=== PATIENT | female | born 1975 | race American Indian/Alaskan Native ===

== ENCOUNTER 2021-03-16 15:55 | Inpatient (IN) | payer BC ==
[2021-03-16] MEDS ORDERED: SODIUM CHLORIDE 0.9% 500 ML 500 ML IV ONE (16:52)
[2021-03-16] MEDS ORDERED: ACETAMINOPHEN 500 MG TAB PO STA (16:52)
[2021-03-16] MEDS ORDERED: dexAMETHasone 20 MG/5 ML VIAL IV ONE (17:00)
[2021-03-16] MEDS ORDERED: SODIUM CHLORIDE 0.9% 1000 ML 1,000 ML ONE (17:07)
--- NOTE | 2021-03-16 17:07 | Emergency Department Report ---
HPI - General Chief Complaint: Dyspnea/Respdistress Time Seen by Provider: 03/16/21 16:59 - HPI HPI: This is a 46 year old AA F who presents to the emergency department with the complaint of a cough, mild SOB, chest discomfort and "I am not getting better." She went to the urgent care a few days ago and had a Covid swab done, but has not gottent the results yet. She denies any past medical history but admits that she does not follow with a PCP regularly. She moved here from [place] in June. No recent travel or sick contacts at home. The patient denies any tobacco or illicit drug use. She has not taken anything for symptoms prior to presentation today. The patient presented into triage with a temperature of 104 F and a room air pulse ox in the 40s. ED Past Medical Hx - Medications Home Medications: Home Medications Medication Instructions Recorded Confirmed Last Taken Type No Known Home Medications [No 03/16/21 03/16/21 Unknown History Reported Home Medications] ED Review of Systems ROS: Stated complaint: COUGH/CHEST PAIN/NO BM Other details as noted in HPI Comment: All other systems reviewed and negative Constitutional: fever, weakness Eyes: denies: eye pain, vision change ENT: denies: ear pain, throat pain Respiratory: cough, shortness of breath Cardiovascular: chest pain. denies: edema Gastrointestinal: denies: abdominal pain, vomiting Genitourinary: denies: dysuria, discharge Musculoskeletal: myalgia. denies: joint swelling Skin: denies: rash, lesions Neurological: denies: numbness, paresthesias Physical Exam - Physical Exam Vital Signs: Vital Signs 03/16/21 03/16/21 03/16/21 16:43 16:54 16:57 Temperature 104 F H 104 F H Pulse Rate 122 H 124 H Respiratory 16 20 Rate Blood Pressure 143/75 140/80 [Right] O2 Sat by Pulse 48 L 83 L 84 Oximetry 03/16/21 16:58 Temperature Pulse Rate Respiratory 90 H Rate Blood Pressure [Right] O2 Sat by Pulse Oximetry Physical Exam: GENERAL: The patient is well-developed well-nourished. HENT: Normocephalic. Atraumatic. Patient has moist mucous membranes. EYES: Extraocular motions are intact. NECK: Supple. Trachea is midline. CHEST/LUNGS: Rhonchi heard bilaterally. Mild tachypnea but no accessory muscle use. There is no respiratory distress noted. HEART/CARDIOVASCULAR: Regular. There is moderate tachycardia. There is no murmur. ABDOMEN: Abdomen is soft, nontender. Patient has normal bowel sounds. Morbidly obese habitus. SKIN: Skin is warm and dry. NEURO: The patient is awake, alert, and oriented. The patient is cooperative. The patient has no focal neurologic deficits. Normal speech. MUSCULOSKELETAL: There is no tenderness or deformity. There is no limitation range of motion. ED Course Vital Signs 03/16/21 03/16/21 03/16/21 16:43 16:54 16:57 Temperature 104 F H 104 F H Pulse Rate 122 H 124 H Respiratory 16 20 Rate Blood Pressure 143/75 140/80 [Right] O2 Sat by Pulse 48 L 83 L 84 Oximetry 03/16/21 16:58 Temperature Pulse Rate Respiratory 90 H Rate Blood Pressure [Right] O2 Sat by Pulse Oximetry ED Medical Decision Making - Lab Data Result diagrams: 03/16/21 16:57 03/16/21 16:57 Lab Results 03/16/21 03/16/21 03/16/21 Range/Units 16:57 16:57 16:57 WBC 4.8 (4.5-11.0) K/mm3 RBC 5.04 H (3.65-5.03) M/mm3 Hgb 11.5 (10.1-14.3) gm/dl Hct 36.4 (30.3-42.9) % MCV 72 L (79-97) fl MCH 23 L (28-32) pg MCHC 32 (30-34) % RDW 19.0 H (13.2-15.2) % Plt Count 283 (140-440) K/mm3 Lymph % (Auto) 16.6 (13.4-35.0) % [place] % (Auto) 8.5 H (0.0-7.3) % Eos % (Auto) 0.0 (0.0-4.3) % Baso % (Auto) 0.3 (0.0-1.8) % Lymph # (Auto) 0.8 L (1.2-5.4) K/mm3 [place] # (Auto) 0.4 (0.0-0.8) K/mm3 Eos # (Auto) 0.0 (0.0-0.4) K/mm3 Baso # (Auto) 0.0 (0.0-0.1) K/mm3 Seg Neutrophils % 74.6 H (40.0-70.0) % Seg Neutrophils # 3.6 (1.8-7.7) K/mm3 PT 13.0 (12.2-14.9) Sec. INR 0.93 (0.87-1.13) D-Dimer 977.31 H (0-234) ng/mlDDU VBG pH (7.320-7.420) Sodium 133 L (137-145) mmol/L Potassium 4.2 (3.6-5.0) mmol/L Chloride 92.0 L (98-107) mmol/L Carbon Dioxide 26 (22-30) mmol/L Anion Gap 19 mmol/L BUN 10 (7-17) mg/dL Creatinine 0.9 (0.6-1.2) mg/dL Estimated GFR > 60 ml/min BUN/Creatinine Ratio 11 % Glucose 131 H (65-100) mg/dL Lactic Acid (0.7-2.0) mmol/L Calcium 9.2 (8.4-10.2) mg/dL Ferritin (10.0-200.0) ng/mL Total Bilirubin 0.40 (0.1-1.2) mg/dL AST 145 H (5-40) units/L ALT 57 H (7-56) units/L Alkaline Phosphatase 62 (35-129) units/L Lactate Dehydrogenase (91-180) units/L C-Reactive Protein (0.00-1.30) mg/dL NT-Pro-B Natriuret Pep (0-450) pg/mL Total Protein 8.7 H (6.3-8.2) g/dL Albumin 3.5 L (3.9-5) g/dL Albumin/Globulin Ratio 0.7 % HCG, Qual (Negative) 03/16/21 03/16/21 03/16/21 Range/Units 16:57 16:57 16:57 WBC (4.5-11.0) K/mm3 RBC (3.65-5.03) M/mm3 Hgb (10.1-14.3) gm/dl Hct (30.3-42.9) % MCV (79-97) fl MCH (28-32) pg MCHC (30-34) % RDW (13.2-15.2) % Plt Count (140-440) K/mm3 Lymph % (Auto) (13.4-35.0) % [place] % (Auto) (0.0-7.3) % Eos % (Auto) (0.0-4.3) % Baso % (Auto) (0.0-1.8) % Lymph # (Auto) (1.2-5.4) K/mm3 [place] # (Auto) (0.0-0.8) K/mm3 Eos # (Auto) (0.0-0.4) K/mm3 Baso # (Auto) (0.0-0.1) K/mm3 Seg Neutrophils % (40.0-70.0) % Seg Neutrophils # (1.8-7.7) K/mm3 PT (12.2-14.9) Sec. INR (0.87-1.13) D-Dimer (0-234) ng/mlDDU VBG pH 7.430 H (7.320-7.420) Sodium (137-145) mmol/L Potassium (3.6-5.0) mmol/L Chloride (98-107) mmol/L Carbon Dioxide (22-30) mmol/L Anion Gap mmol/L BUN (7-17) mg/dL Creatinine (0.6-1.2) mg/dL Estimated GFR ml/min BUN/Creatinine Ratio % Glucose (65-100) mg/dL Lactic Acid 2.40 H* (0.7-2.0) mmol/L Calcium (8.4-10.2) mg/dL Ferritin (10.0-200.0) ng/mL Total Bilirubin (0.1-1.2) mg/dL AST (5-40) units/L ALT (7-56) units/L Alkaline Phosphatase (35-129) units/L Lactate Dehydrogenase (91-180) units/L C-Reactive Protein (0.00-1.30) mg/dL NT-Pro-B Natriuret Pep (0-450) pg/mL Total Protein (6.3-8.2) g/dL Albumin (3.9-5) g/dL Albumin/Globulin Ratio % HCG, Qual Negative (Negative) 03/16/21 03/16/21 Range/Units 17:12 17:12 WBC (4.5-11.0) K/mm3 RBC (3.65-5.03) M/mm3 Hgb (10.1-14.3) gm/dl Hct (30.3-42.9) % MCV (79-97) fl MCH (28-32) pg MCHC (30-34) % RDW (13.2-15.2) % Plt Count (140-440) K/mm3 Lymph % (Auto) (13.4-35.0) % [place] % (Auto) (0.0-7.3) % Eos % (Auto) (0.0-4.3) % Baso % (Auto) (0.0-1.8) % Lymph # (Auto) (1.2-5.4) K/mm3 [place] # (Auto) (0.0-0.8) K/mm3 Eos # (Auto) (0.0-0.4) K/mm3 Baso # (Auto) (0.0-0.1) K/mm3 Seg Neutrophils % (40.0-70.0) % Seg Neutrophils # (1.8-7.7) K/mm3 PT (12.2-14.9) Sec. INR (0.87-1.13) D-Dimer (0-234) ng/mlDDU VBG pH (7.320-7.420) Sodium (137-145) mmol/L Potassium (3.6-5.0) mmol/L Chloride (98-107) mmol/L Carbon Dioxide (22-30) mmol/L Anion Gap mmol/L BUN (7-17) mg/dL Creatinine (0.6-1.2) mg/dL Estimated GFR ml/min BUN/Creatinine Ratio % Glucose (65-100) mg/dL Lactic Acid (0.7-2.0) mmol/L Calcium (8.4-10.2) mg/dL Ferritin 88.4 (10.0-200.0) ng/mL Total Bilirubin (0.1-1.2) mg/dL AST (5-40) units/L ALT (7-56) units/L Alkaline Phosphatase (35-129) units/L Lactate Dehydrogenase 944 H (91-180) units/L C-Reactive Protein 10.60 H (0.00-1.30) mg/dL NT-Pro-B Natriuret Pep 113.8 (0-450) pg/mL Total Protein (6.3-8.2) g/dL Albumin (3.9-5) g/dL Albumin/Globulin Ratio % HCG, Qual (Negative) - EKG Data -: EKG Interpreted by Me EKG shows normal: sinus rhythm, axis, intervals, QRS complexes, ST-T waves (An terolateral flattening of the T waves) Rate: tachycardia (119 bpm) - EKG Data When compared to previous EKG there are: previous EKG unavailable Interpretation: other (Sinus tachycardia 119 bpm, normal axis, normal intervals, anterolateral T wave flattening. No ST elevation MT) - Radiology Data Radiology results: image reviewed interpreted by me: Chest x-ray shows bilateral patchy infiltrates concerning for pneumonia. No pneumothorax. No widened mediastinum. - Medical Decision Making This patient presents to the emergency department with complaint of a mild cough, shortness of breath, fatigue, chest discomfort, that has not been getting any better over the past few days. She recently had a Covid swab done but did not have the results. Upon presentation the patient is seen with a room air pulse ox of about 45%. She was titrated up on nasal cannula and then eventually to high flow oxygen and we were able to get her oxygen saturation up into the 90s on 35 L at 90% FiO2. Chest x-ray shows bilateral patchy infiltrates consistent with pneumonia. Patient's labs show elevated inflammatory markers consistent with COVID-19 infection such as D-dimer level, LDH, ferritin, CRP, and the patient has elevate d LFTs. She has received IV fluid resuscitation, IV Decadron, IV antibiotics. The patient will be admitted to the hospital for further evaluation and treatment was accepted for admission by the hospitalist, Dr. Murrieta. Critical Care Time: Yes Critical care time in (mins) excluding proc time.: 35 Critical care attestation.: If time is entered above; I have spent that time in minutes in the direct care of this critically ill patient, excluding procedure time. Critical care time spent on this patient in doing her initial evaluation, multiple reevaluations, ordering and interpretation of labs and imaging, supplemental oxygen for her hypoxia, IV antibiotics, IV Decadron. Critical Care Time: 35 minutes ED Disposition Clinical Impression: Acute hypoxemic respiratory failure, Suspected 2019-nCoV infection, Pneumonia Disposition: 09 ADMITTED INPATIENT Is pt being admited?: Yes Condition: Serious Time of Disposition: 23:21
[2021-03-16 17:23] LABS: Basophils % (Auto) 0.3 % (0.0-1.8); Hematocrit 36.4 % (30.3-42.9); Hemoglobin 11.5 gm/dl (10.1-14.3); Lymphocytes # (Auto) 0.8 K/mm3 (1.2-5.4); Lymphocytes % (Auto) 16.6 % (13.4-35.0); Mean Corpuscular HGB Conc 32 % (30-34); Mean Corpuscular Volume 72 fl (79-97); Monocytes # (Auto) 0.4 K/mm3 (0.0-0.8); Monocytes % (Auto) 8.5 % (0.0-7.3); Platelet Count 283 K/mm3 (140-440); Red Blood Count 5.04 M/mm3 (3.65-5.03)
[2021-03-16 17:37] LABS: INR 0.93 (0.87-1.13)
[2021-03-16 18:02] LABS: Alanine Aminotransferase 57 units/L (7-56); Albumin 3.5 g/dL (3.9-5); BUN/Creatinine Ratio 11; Blood Urea Nitrogen 10 mg/dL (7-17); Calcium 9.2 mg/dL (8.4-10.2); Hemolysis Index 15
[2021-03-16 18:03] LABS: C-Reactive Protein 10.6 mg/dL (0.00-1.30)
[2021-03-16] MEDS ORDERED: KETOROLAC 30 MG/1 ML INJ IV ONE (18:11)
--- NOTE | 2021-03-16 18:36 | XRay Report ---
CHEST 1 VIEW INDICATION: possible Sepsis. COMPARISON: None FINDINGS: SUPPORT DEVICES: None. HEART: Within normal limits. LUNGS/PLEURA: Moderate patchy multifocal airspace disease throughout the lungs. ADDITIONAL FINDINGS: None. IMPRESSION: 1. Pulmonary findings as above. Signer Name: Thomas Joseph MD Signed: 03/16/2021 6:32 PM Workstation Name: [id number]
--- NOTE | 2021-03-16 18:45 | History and Physical Report ---
History of Present Illness Chief complaint: I cannot breathe and my head hurts History of present illness: 46 YO Female with Obesity Hypoventilation Syndrome presents ED for evaluation. Patient reports "I cannot breathe, my head hurts". Patient states that she has experienced fever, generalized weakness, fatigue, malaise, dry cough, headache, diminished sense of smell, diminished sense of taste over the past 5 days with persistent and worsening symptoms over the same timeframe. Patient transported to [facility] via private vehicle for further care and evaluation of the aforementioned symptoms. The patient was seen and evaluated in the emergency department. All lab and imaging studies reviewed. The patient was found to be febrile with a temperature of 104 F as well as a pulse oximetry of 45% on room air which is consistent with acute hypoxemic respiratory failure. Patient was placed on supplemental oxygen without significant improvement in symptoms and was subsequently placed on high flow supplemental oxygen with mild improvement in symptoms. Chest x-ray revealed bilateral pneumonia. Patient admitted to medical floor and initiated on pneumonia as well as coronavirus protocols. Pulmonary team consulted in ED. Nephrology team consulted in ED. Patient denies chest pain, skin rash, recent ill contacts unilateral leg swelling, calf pain prolonged travel/immobility, individual/family history of DV T/PE/bleeding/blood clotting disorders. No prior admission for review. No medication listed at time of admission for reconciliation. Advanced care planning conducted in ED. Patient is not vaccinated against COVID-19. Past History Past Medical History: other (See HPI) Past Surgical History: No surgical history, Other (Reviewed) Social history: single. denies: smoking, alcohol abuse, prescription drug abuse Family history: diabetes, hypertension Medications and Allergies Allergies Allergy/AdvReac Type Severity Reaction Status Date / Time No Known Allergies Allergy Verified 03/16/21 17:07 Home Medications Medication Instructions Recorded Confirmed Last Taken Type No Known Home Medications [No 03/16/21 03/16/21 Unknown History Reported Home Medications] Review of Systems Constitutional: fever, fatigue, weakness, malaise Ears, nose, mouth and throat: other (Loss of sense of smell, loss of sense of taste), no ear pain, no ear discharge, no decreased hearing, no nose pain Breasts: no change in shape, no swelling Cardiovascular: no chest pain, no orthopnea, no rapid/irregular heart beat, no edema Respiratory: cough, cough with sputum, shortness of breath Gastrointestinal: nausea, no abdominal pain, no diarrhea, no constipation, no hematemesis Genitourinary Female: no pelvic pain, no flank pain, no dysuria, no urinary frequency, no urgency Rectal: no pain, no incontinence, no bleeding Musculoskeletal: no neck stiffness, no neck pain, no shooting arm pain, no arm numbness/tingling, no shooting leg pain Integumentary: no rash, no pruritis, no sores, no boils, no blisters Neurological: no head injury, no paralysis, no weakness, no tingling, no seizures, no syncope, no ataxia Psychiatric: no anxiety, no memory loss, no sleep disturbances, no insomnia, no suicidal ideation Endocrine: no cold intolerance, no heat intolerance, no polyphagia, no polydipsia, no nocturia, no excessive sweating Hematologic/Lymphatic: no easy bruising, no easy bleeding Allergic/Immunologic: no urticaria Exam - Constitutional Vitals: Temp Pulse Resp BP Pulse Ox 104 F H 118 H 22 131/75 96 03/16/21 16:54 03/16/21 18:23 03/16/21 18:23 03/16/21 18:23 03/16/21 18:23 General appearance: Present: mild distress, obese - EENT Eyes: Present: PERRL ENT: hearing intact, clear oral mucosa - Neck Neck: Present: supple, normal ROM - Respiratory Respiratory effort: labored, accessory muscle use, stridor Respiratory: bilateral: diminished, rhonchi - Cardiovascular Heart Sounds: Present: S1 & S2. Absent: rub, click - Extremities Extremities: pulses symmetrical, No edema Peripheral Pulses: within normal limits - Abdominal General gastrointestinal: Present: soft, non-tender, non-distended, normal bowel sounds Female genitourinary: Present: normal - Integumentary Integumentary: Present: clear, warm, dry - Musculoskeletal Musculoskeletal: gait normal, strength equal bilaterally - Psychiatric Psychiatric: appropriate mood/affect, intact judgment & insight - Neurologic Neurologic: CNII-XII intact, moves all extremities Results - Labs CBC & Chem 7: 03/16/21 16:57 03/16/21 16:57 Labs: Abnormal lab results 03/16/21 03/16/21 03/16/21 Range/Units 16:57 16:57 16:57 RBC 5.04 H (3.65-5.03) M/mm3 MCV 72 L (79-97) fl MCH 23 L (28-32) pg RDW 19.0 H (13.2-15.2) % [place] % (Auto) 8.5 H (0.0-7.3) % Lymph # (Auto) 0.8 L (1.2-5.4) K/mm3 Seg Neutrophils % 74.6 H (40.0-70.0) % D-Dimer 977.31 H (0-234) ng/mlDDU VBG pH (7.320-7.420) Sodium 133 L (137-145) mmol/L Chloride 92.0 L (98-107) mmol/L Glucose 131 H (65-100) mg/dL Lactic Acid (0.7-2.0) mmol/L AST 145 H (5-40) units/L ALT 57 H (7-56) units/L Lactate Dehydrogenase (91-180) units/L C-Reactive Protein (0.00-1.30) mg/dL Total Protein 8.7 H (6.3-8.2) g/dL Albumin 3.5 L (3.9-5) g/dL 03/16/21 03/16/21 03/16/21 Range/Units 16:57 16:57 17:12 RBC (3.65-5.03) M/mm3 MCV (79-97) fl MCH (28-32) pg RDW (13.2-15.2) % [place] % (Auto) (0.0-7.3) % Lymph # (Auto) (1.2-5.4) K/mm3 Seg Neutrophils % (40.0-70.0) % D-Dimer (0-234) ng/mlDDU VBG pH 7.430 H (7.320-7.420) Sodium (137-145) mmol/L Chloride (98-107) mmol/L Glucose (65-100) mg/dL Lactic Acid 2.40 H* (0.7-2.0) mmol/L AST (5-40) units/L ALT (7-56) units/L Lactate Dehydrogenase 944 H (91-180) units/L C-Reactive Protein 10.60 H (0.00-1.30) mg/dL Total Protein (6.3-8.2) g/dL Albumin (3.9-5) g/dL Assessment and Plan - Patient Problems (1) Acute hypoxemic respiratory failure Current Visit: Yes Status: Acute Plan to address problem: Chest x-ray, supplemental oxygen, pulse oximetry, nebulizer therapy, high flow supplemental oxygen at this time, if patient is unable to maintain pulse oximetry will consider noninvasive positive pressure ventilation with BiPAP. Pulmonary team consulted. (2) Suspected 2019-nCoV infection Current Visit: Yes Status: Acute Plan to address problem: Coronavirus protocol: Contact precaution, isolation precautions, IV antibiotic therapy, IV steroid therapy, vitamin C therapy, vitamin D therapy, zinc therapy, high flow submental oxygen, prophylactic anticoagulation (3) Pneumonia Current Visit: Yes Status: Acute Plan to address problem: Pneumonia protocol: Chest x-ray, CBC, CMP, supplemental oxygen, pulse oximetry, nebulizer therapy, prone positioning while in bed, pulmonary toilet, (4) Obesity hypoventilation syndrome Current Visit: Yes Status: Acute Plan to address problem: Balanced diet, increase physical activity discharge, outpatient pulmonary follow -up for sleep study, outpatient bariatric surgery follow-up. (5) DVT prophylaxis Current Visit: Yes Status: Acute Plan to address problem: SCD to bilateral lower extremities while in bed, prophylactic anticoagulation (6) Advance care planning Current Visit: Yes Status: Acute Plan to address problem: Disease education conducted, care plan discussed, diagnosis discussed, prognosis discussed, patient is full code, patient knowledges understanding and agreement with care plan, +30 minutes. (7) 2019 novel coronavirus vaccination not done Current Visit: Yes Status: Acute Plan to address problem: Pt counseled.
[2021-03-16] MEDS ORDERED: ONDANSETRON 4 MG/2 ML INJ IV PRN (18:46)
[2021-03-16] MEDS ORDERED: oxyCODONE /ACETAMINOPHEN 5-325MG TAB PO PRN (18:46)
[2021-03-16] MEDS ORDERED: ACETAMINOPHEN 325 MG TAB PO PRN (18:46)
[2021-03-16] MEDS ORDERED: HYDROmorphone 1 MG/1 ML INJ IV PRN (18:46)
[2021-03-16] MEDS ORDERED: ALBUTEROL 2.5 MG/3 ML NEBU IH PRN (18:46)
[2021-03-16] MEDS ORDERED: cefTRIAXone/NS 2 GM/100 ML 2 GM/100 ML BAG IV SCH (19:00)
[2021-03-16] MEDS ORDERED: AZITHROMYCIN/NS 500 MG/250 ML 500 MG/250 ML BAG IV SCH (19:00)
[2021-03-16] MEDS: HEPARIN 5,000 UNIT/1 ML VIAL SUB-Q SCH (22:00)
[2021-03-16] MEDS: ZINC SULFATE 220 MG CAP PO SCH (22:00)
[2021-03-16] MEDS: ASCORBIC ACID 500 MG TAB PO SCH (22:00)
[2021-03-16] MEDS: methylPREDNISolone Sod Succinate 40 MG/1 ML INJ IV SCH (22:00)
[2021-03-17 05:27] LABS: Basophils % (Auto) 0.1 % (0.0-1.8); Hematocrit 32.8 % (30.3-42.9); Hemoglobin 10.2 gm/dl (10.1-14.3); Lymphocytes # (Auto) 0.6 K/mm3 (1.2-5.4); Lymphocytes % (Auto) 14.4 % (13.4-35.0); Mean Corpuscular HGB Conc 31 % (30-34); Mean Corpuscular Volume 72 fl (79-97); Monocytes # (Auto) 0.2 K/mm3 (0.0-0.8); Monocytes % (Auto) 4.9 % (0.0-7.3); Platelet Count 241 K/mm3 (140-440); Red Blood Count 4.54 M/mm3 (3.65-5.03); Red Cell Distribution Width 18.6 % (13.2-15.2)
[2021-03-17 05:42] LABS: Alanine Aminotransferase 50 units/L (7-56); Albumin 3.2 g/dL (3.9-5); BUN/Creatinine Ratio 14; Blood Urea Nitrogen 11 mg/dL (7-17); Calcium 8.3 mg/dL (8.4-10.2); Hemolysis Index 1
[2021-03-17] MEDS: methylPREDNISolone Sod Succinate 40 MG/1 ML INJ IV SCH ×3 (06:00→22:27)
[2021-03-17 08:04] LABS: Bacteria,Urine 1+ /HPF (Negative); Bilirubin,Urine NEG (Negative); Blood,Urine NEG (Negative); Color,Urine Yellow (Yellow); Mucus,Urine FEW /HPF; Urobilinogen,Urine < 2.0 mg/dL (<2.0)
--- NOTE | 2021-03-17 09:24 | Consultation ---
History of Present Illness History of present illness: This is a pt who comes in w fever, loss of taste and smell, body aches and pain for 5 days before admission. On arrival she was noted to be hypoxic w reported o2 sat in 40s. She was placed on supplemental o2 the hiflo with improvement. Presently she is. She has of smoking Past History Past Medical History: other (See HPI) Past Surgical History: No surgical history, Other (Reviewed) Social history: single. denies: smoking, alcohol abuse, prescription drug abuse Family history: diabetes, hypertension Medications and Allergies Allergies Allergy/AdvReac Type Severity Reaction Status Date / Time No Known Allergies Allergy Verified 03/16/21 17:07 Home Medications Medication Instructions Recorded Confirmed Last Taken Type No Known Home Medications [No 03/16/21 03/16/21 Unknown History Reported Home Medications] Active Meds: Active Medications Acetaminophen (Acetaminophen 325 Mg Tab) 650 mg PO Q4H PRN PRN Reason: Pain MILD(1-3)/Fever >100.5/CUEVA Albuterol (Albuterol 2.5 Mg/3 Ml Nebu) 2.5 mg IH Q4HRT PRN PRN Reason: Shortness Of Breath Ascorbic Acid (Ascorbic Acid 500 Mg Tab) 500 mg PO BID WALLY Last Admin: 03/16/21 22:00 Dose: 500 mg Documented by: Cholecalciferol (Cholecalciferol (Vit D3) 400 Unit Tab) 1,000 unit PO QDAY WALLY Heparin Sodium (Porcine) (Heparin 5,000 Unit/1 Ml Vial) 5,000 unit SUB-Q Q12HR WALLY Last Admin: 03/16/21 22:00 Dose: 5,000 unit Documented by: Hydromorphone HCl (Hydromorphone 1 Mg/1 Ml Inj) 0.5 mg IV Q24H PRN PRN Reason: Pain , Severe (7-10) Ceftriaxone Sodium (Rocephin/Ns 2 Gm/100 Ml) 2 gm in 100 mls @ 200 mls/hr IV Q24H WALLY; Protocol Stop: 03/20/21 19:29 Last Admin: 03/16/21 19:30 Dose: 200 mls/hr Documented by: Azithromycin (Zithromax/Ns) 500 mg in 250 mls @ 250 mls/hr IV Q24H WALLY; Protocol Stop: 03/20/21 19:59 Last Admin: 03/16/21 19:55 Dose: 250 mls/hr Documented by: Methylprednisolone Sodium Succinate (Methylprednisolone Sod Succinate 40 Mg/1 Ml Inj) 40 mg IV Q8HR [facility] Last Admin: 03/17/21 06:00 Dose: 40 mg Documented by: Ondansetron HCl (Ondansetron 4 Mg/2 Ml Inj) 4 mg IV Q8H PRN PRN Reason: Nausea And Vomiting Oxycodone/Acetaminophen (Oxycodone /Acetaminophen 5-325mg Tab) 1 tab PO Q12H PRN PRN Reason: Pain, Moderate (4-6) Sodium Chloride (Sodium Chloride 0.9% 10 Ml Flush Syringe) 10 ml IV BID [facility] Last Admin: 03/16/21 22:00 Dose: 10 ml Documented by: Sodium Chloride (Sodium Chloride 0.9% 10 Ml Flush Syringe) 10 ml IV PRN PRN PRN Reason: LINE FLUSH Zinc Sulfate (Zinc Sulfate 220 Mg Cap) 220 mg PO BID [facility] Last Admin: 03/16/21 22:00 Dose: 220 mg Documented by: Physical Examination Vital signs: Vital Signs Temp Pulse Resp BP Pulse Ox 104 F H 122 H 16 143/75 48 L 03/16/21 16:43 03/16/21 16:43 03/16/21 16:43 03/16/21 16:43 03/16/21 16:43 Results - Laboratory Findings CBC and BMP: 03/17/21 04:42 03/17/21 04:42 ABG ABG pH 7.457 (7.320-7.450) H 03/17/21 08:39 POC ABG pCO2 42.4 mmHg (32.0-48.0) 03/17/21 08:39 POC ABG pO2 57.4 mmHg (83-108) L 03/17/21 08:39 POC ABG HCO3 29.3 03/17/21 08:39 ABG O2 Saturation 89.3 (0-100) 03/17/21 08:39 PT/INR, D-dimer PT 13.0 Sec. (12.2-14.9) 03/16/21 16:57 INR 0.93 (0.87-1.13) 03/16/21 16:57 D-Dimer 977.31 ng/mlDDU (0-234) H 03/16/21 16:57 Abnormal lab findings: Abnormal Labs 03/16/21 03/16/21 03/16/21 16:57 16:57 16:57 WBC RBC 5.04 H MCV 72 L MCH 23 L RDW 19.0 H [place] % (Auto) 8.5 H Lymph # (Auto) 0.8 L Seg Neutrophils % 74.6 H D-Dimer 977.31 H ABG pH POC ABG pO2 ABG Hemoglobin ABG Oxyhemoglobin ABG Sodium ABG Glucose VBG pH Carboxyhemoglobin Sodium 133 L Chloride 92.0 L Glucose 131 H Lactic Acid Calcium AST 145 H ALT 57 H Lactate Dehydrogenase C-Reactive Protein Total Protein 8.7 H Albumin 3.5 L Arterial Blood Glucose Arterial Blood Ionized Calcium 03/16/21 03/16/21 03/16/21 16:57 16:57 17:12 WBC RBC MCV MCH RDW [place] % (Auto) Lymph # (Auto) Seg Neutrophils % D-Dimer ABG pH POC ABG pO2 ABG Hemoglobin ABG Oxyhemoglobin ABG Sodium ABG Glucose VBG pH 7.430 H Carboxyhemoglobin Sodium Chloride Glucose Lactic Acid 2.40 H* Calcium AST ALT Lactate Dehydrogenase 944 H C-Reactive Protein 10.60 H Total Protein Albumin Arterial Blood Glucose Arterial Blood Ionized Calcium 03/17/21 03/17/21 03/17/21 04:42 04:42 08:39 WBC 4.3 L RBC MCV 72 L MCH 23 L RDW 18.6 H [place] % (Auto) Lymph # (Auto) 0.6 L Seg Neutrophils % 80.6 H D-Dimer ABG pH 7.457 H POC ABG pO2 57.4 L ABG Hemoglobin 11.6 L ABG Oxyhemoglobin 88.7 L ABG Sodium 132.6 L ABG Glucose 272 H VBG pH Carboxyhemoglobin 0.4 L Sodium Chloride 97.6 L Glucose 269 H Lactic Acid Calcium 8.3 L AST 106 H ALT Lactate Dehydrogenase C-Reactive Protein Total Protein Albumin 3.2 L Arterial Blood Glucose 272 H Arterial Blood Ionized Calcium 4.4 L
[2021-03-17] MEDS: ASCORBIC ACID 500 MG TAB PO SCH ×2 (10:22→22:27)
[2021-03-17] MEDS: HEPARIN 5,000 UNIT/1 ML VIAL SUB-Q SCH (10:22)
[2021-03-17] MEDS: CHOLECALCIFEROL (VIT D3) 400 UNIT TAB PO SCH (10:22)
[2021-03-17] MEDS: ZINC SULFATE 220 MG CAP PO SCH ×2 (10:22→22:27)
--- NOTE | 2021-03-17 10:47 | Progress Note ---
Assessment and Plan Assessment and plan: 46 YO Female with Obesity Hypoventilation Syndrome presents ED for evaluation. Patient reports "I cannot breathe, my head hurts". Patient states that she has experienced fever, generalized weakness, fatigue, malaise, dry cough, headache, diminished sense of smell, diminished sense of taste over the past 5 days with persistent and worsening symptoms over the same timeframe. Patient transported to [facility] via private vehicle for further care and evaluation of the aforementioned symptoms. The patient was seen and evaluated in the emergency department. All lab and imaging studies reviewed. The patient was found to be febrile with a temperature of 104 F as well as a pulse oximetry of 45% on room air which is consistent with acute hypoxemic respiratory failure. Patient was placed on supplemental oxygen without significant improvement in symptoms and was subsequently placed on high flow supplemental oxygen with mild improvement in symptoms. Chest x-ray revealed bilateral pneumonia. Patient admitted to medical floor and initiated on pneumonia as well as coronavirus protocols. Pulmonary team consulted in ED. Nephrology team consulted in ED. Patient denies chest pain, skin rash, recent ill contacts unilateral leg swelling, calf pain prolonged travel/immobility, individual/family history of DVT/PE/bleeding/blood clotting disorders. No prior admission for review. No medication listed at time of admission for reconciliation. Advanced care planning conducted in ED. Patient is not vaccinated against COVID-19. 03/17: Patient still severely hypoxic she is unvaccinated. ID recommended that she is lies prone as much as she can, I will also adjusted steroids for higher dose for better management. I also added some Lasix. Pulmonary input is noted will await ID input as patient will likely need remdesivir. Will monitor renal function. Continue monitoring inflammatory markers. Condition guarded discussed extensively with the patient critical care time 35 minutes (1) Acute hypoxemic respiratory failure Current Visit: Yes Status: Acute Plan to address problem: Chest x-ray, supplemental oxygen, pulse oximetry, nebulizer therapy, high flow supplemental oxygen at this time, if patient is unable to maintain pulse oximetry will consider noninvasive positive pressure ventilation with BiPAP. Pulmonary team consulted. (2) Suspected 2019-nCoV infection Current Visit: Yes Status: Acute Plan to address problem: Coronavirus protocol: Contact precaution, isolation precautions, IV antibiotic therapy, IV steroid therapy, vitamin C therapy, vitamin D therapy, zinc therapy, high flow submental oxygen, prophylactic anticoagulation (3) Pneumonia Current Visit: Yes Status: Acute Plan to address problem: Pneumonia protocol: Chest x-ray, CBC, CMP, supplemental oxygen, pulse oximetry, nebulizer therapy, prone positioning while in bed, pulmonary toilet, (4) Obesity hypoventilation syndrome Current Visit: Yes Status: Acute Plan to address problem: Balanced diet, increase physical activity discharge, outpatient pulmonary follow-up for sleep study, outpatient bariatric surgery follow-up. (5) DVT prophylaxis Current Visit: Yes Status: Acute Plan to address problem: SCD to bilateral lower extremities while in bed, prophylactic anticoagulation (6) Advance care planning Current Visit: Yes Status: Acute Plan to address problem: Disease education conducted, care plan discussed, diagnosis discussed, prognosis discussed, patient is full code, patient knowledges understanding and agreement with care plan, +30 minutes. (7) 2019 novel coronavirus vaccination not done Current Visit: Yes Status: Acute Plan to address problem: Pt counseled. History Interval history: Patient seen and examined today still severely hypoxic on high flow 100% satting 94%. Hospitalist Physical - Physical exam Narrative exam: General appearance: Present: mild distress, obese, on high flow - EENT Eyes: Present: PERRL ENT: hearing intact, clear oral mucosa - Neck Neck: Present: supple, normal ROM - Respiratory Respiratory effort: labored, accessory muscle use, stridor Respiratory: bilateral: diminished, rhonchi - Cardiovascular Heart Sounds: Present: S1 & S2. Absent: rub, click - Extremities Extremities: pulses symmetrical, No edema Peripheral Pulses: within normal limits - Abdominal General gastrointestinal: Present: soft, non-tender, non-distended, normal bowel sounds Female genitourinary: Present: normal - Integumentary Integumentary: Present: clear, warm, dry - Musculoskeletal Musculoskeletal: gait normal, strength equal bilaterally - Psychiatric Psychiatric: appropriate mood/affect, intact judgment & insight - Neurologic Neurologic: CNII-XII intact, moves all extremities - Constitutional Vitals: Temp Pulse Resp BP Pulse Ox 98.6 F 97 H 22 118/78 93 03/17/21 05:00 03/17/21 07:01 03/16/21 18:23 03/17/21 07:01 03/17/21 08:33 General appearance: Present: mild distress, obese Results - Labs CBC & Chem 7: 03/17/21 04:42 03/17/21 04:42 Labs: Laboratory Last Values WBC 4.3 K/mm3 (4.5-11.0) L 03/17/21 04:42 RBC 4.54 M/mm3 (3.65-5.03) 03/17/21 04:42 Hgb 10.2 gm/dl (10.1-14.3) 03/17/21 04:42 Hct 32.8 % (30.3-42.9) 03/17/21 04:42 MCV 72 fl (79-97) L 03/17/21 04:42 MCH 23 pg (28-32) L 03/17/21 04:42 MCHC 31 % (30-34) 03/17/21 04:42 RDW 18.6 % (13.2-15.2) H 03/17/21 04:42 Plt Count 241 K/mm3 (140-440) 03/17/21 04:42 Lymph % (Auto) 14.4 % (13.4-35.0) 03/17/21 04:42 [place] % (Auto) 4.9 % (0.0-7.3) 03/17/21 04:42 Eos % (Auto) 0.0 % (0.0-4.3) 03/17/21 04:42 Baso % (Auto) 0.1 % (0.0-1.8) 03/17/21 04:42 Lymph # (Auto) 0.6 K/mm3 (1.2-5.4) L 03/17/21 04:42 [place] # (Auto) 0.2 K/mm3 (0.0-0.8) 03/17/21 04:42 Eos # (Auto) 0.0 K/mm3 (0.0-0.4) 03/17/21 04:42 Baso # (Auto) 0.0 K/mm3 (0.0-0.1) 03/17/21 04:42 Seg Neutrophils % 80.6 % (40.0-70.0) H 03/17/21 04:42 Seg Neutrophils # 3.5 K/mm3 (1.8-7.7) 03/17/21 04:42 PT 13.0 Sec. (12.2-14.9) 03/16/21 16:57 INR 0.93 (0.87-1.13) 03/16/21 16:57 D-Dimer 977.31 ng/mlDDU (0-234) H 03/16/21 16:57 ABG pH 7.457 (7.320-7.450) H 03/17/21 08:39 POC ABG pCO2 42.4 mmHg (32.0-48.0) 03/17/21 08:39 POC ABG pO2 57.4 mmHg (83-108) L 03/17/21 08:39 POC ABG HCO3 29.3 03/17/21 08:39 ABG O2 Saturation 89.3 (0-100) 03/17/21 08:39 POC ABG Base Excess 4.9 03/17/21 08:39 ABG Hemoglobin 11.6 (12.0-17.5) L 03/17/21 08:39 ABG Oxyhemoglobin 88.7 (94-98) L 03/17/21 08:39 ABG Methemoglobin 0.3 (0.0-1.5) 03/17/21 08:39 ABG Sodium 132.6 mmol/L (136.0-145.0) L 03/17/21 08:39 ABG Potassium 4.1 mmol/L (3.40-4.50) 03/17/21 08:39 ABG Chloride 98.0 mmol/L (98-107) 03/17/21 08:39 ABG Glucose 272 mg/dL (65-95) H 03/17/21 08:39 VBG pH 7.430 (7.320-7.420) H 03/16/21 16:57 Carboxyhemoglobin 0.4 (0.5-1.5) L 03/17/21 08:39 FiO2 % 100.0 03/17/21 08:39 Sodium 139 mmol/L (137-145) 03/17/21 04:42 Potassium 4.5 mmol/L (3.6-5.0) 03/17/21 04:42 Chloride 97.6 mmol/L (98-107) L 03/17/21 04:42 Carbon Dioxide 29 mmol/L (22-30) 03/17/21 04:42 Anion Gap 17 mmol/L 03/17/21 04:42 BUN 11 mg/dL (7-17) 03/17/21 04:42 Creatinine 0.8 mg/dL (0.6-1.2) 03/17/21 04:42 Estimated GFR > 60 ml/min 03/17/21 04:42 BUN/Creatinine Ratio 14 % 03/17/21 04:42 Glucose 269 mg/dL (65-100) H 03/17/21 04:42 Lactic Acid 0.90 mmol/L (0.7-2.0) 03/16/21 19:48 Calcium 8.3 mg/dL (8.4-10.2) L 03/17/21 04:42 Ferritin 88.4 ng/mL (10.0-200.0) 03/16/21 17:12 Total Bilirubin 0.20 mg/dL (0.1-1.2) 03/17/21 04:42 AST 106 units/L (5-40) H 03/17/21 04:42 ALT 50 units/L (7-56) 03/17/21 04:42 Alkaline Phosphatase 53 units/L (35-129) 03/17/21 04:42 Lactate Dehydrogenase 944 units/L (91-180) H 03/16/21 17:12 C-Reactive Protein 10.60 mg/dL (0.00-1.30) H 03/16/21 17:12 NT-Pro-B Natriuret Pep 113.8 pg/mL (0-450) 03/16/21 17:12 Total Protein 6.6 g/dL (6.3-8.2) D 03/17/21 04:42 Albumin 3.2 g/dL (3.9-5) L 03/17/21 04:42 Albumin/Globulin Ratio 0.9 % 03/17/21 04:42 HCG, Qual Negative (Negative) 03/16/21 16:57 Arterial Blood Glucose 272 mg/dL (65-95) H 03/17/21 08:39 Arterial Blood Ionized Calcium 4.4 mg/dL (4.6-5.3) L 03/17/21 08:39 Urine Color Yellow (Yellow) 03/16/21 Unknown Urine Turbidity Clear (Clear) 03/16/21 Unknown Urine pH 6.0 (5.0-7.0) 03/16/21 Unknown Ur Specific [place] 1.014 (1.003-1.030) 03/16/21 Unknown Urine Protein 100 mg/dl mg/dL (Negative) 03/16/21 Unknown Urine Glucose (UA) >=500 mg/dL (Negative) 03/16/21 Unknown Urine Ketones Neg mg/dL (Negative) 03/16/21 Unknown Urine Blood Neg (Negative) 03/16/21 Unknown Urine Nitrite Neg (Negative) 03/16/21 Unknown Urine Bilirubin Neg (Negative) 03/16/21 Unknown Urine Urobilinogen < 2.0 mg/dL (<2.0) 03/16/21 Unknown Ur Leukocyte Esterase Neg (Negative) 03/16/21 Unknown Urine WBC (Auto) 2.0 /HPF (0.0-6.0) 03/16/21 Unknown Urine RBC (Auto) 1.0 /HPF (0.0-6.0) 03/16/21 Unknown U Epithel Cells (Auto) 1.0 /HPF (0-13.0) 03/16/21 Unknown Urine Bacteria (Auto) 1+ /HPF (Negative) 03/16/21 Unknown Urine Mucus Few /HPF 03/16/21 Unknown Microbiology: Microbiology 03/16/21 17:14 Peripheral/Venous Blood Culture - Preliminary Culture in Progress 03/16/21 16:57 Peripheral/Venous Blood Culture - Preliminary Culture in Progress Active Medications - Current Medications Current Medications: Generic Name Dose Route Start Last Admin Trade Name Freq PRN Reason Stop Dose Admin Acetaminophen 650 mg 03/16/21 18:46 Acetaminophen 325 Mg Tab PO Q4H PRN Pain MILD(1-3)/Fever >100.5/CUEVA Albuterol 2.5 mg 03/16/21 18:46 Albuterol 2.5 Mg/3 Ml Nebu IH Q4HRT PRN Shortness Of Breath Ascorbic Acid 500 mg 03/16/21 22:00 03/17/21 10:22 Ascorbic Acid 500 Mg Tab PO 500 mg BID WALLY Administration Cholecalciferol 1,000 unit 03/17/21 10:00 03/17/21 10:22 Cholecalciferol (Vit D3) 400 Unit Tab PO 1,000 unit QDAY WALLY Administration Heparin Sodium (Porcine) 5,000 unit 03/16/21 22:00 03/17/21 10:22 Heparin 5,000 Unit/1 Ml Vial SUB-Q 5,000 unit Q12HR WALLY Administration Hydromorphone HCl 0.5 mg 03/16/21 18:46 Hydromorphone 1 Mg/1 Ml Inj IV Q24H PRN Pain , Severe (7-10) Ceftriaxone Sodium 2 gm in 100 mls @ 200 mls/hr 03/16/21 19:00 03/16/21 19:30 Rocephin/Ns 2 Gm/100 Ml IV 03/20/21 19:29 200 mls/hr Q24H WALLY Administration Protocol Azithromycin 500 mg in 250 mls @ 250 mls/hr 03/16/21 19:00 03/16/21 19:55 Zithromax/Ns IV 03/20/21 19:59 250 mls/hr Q24H WALLY Administration Protocol Methylprednisolone Sodium Succinate 40 mg 03/16/21 22:00 03/17/21 06:00 Methylprednisolone Sod Succinate 40 Mg/1 Ml Inj IV 40 mg Q8HR WALLY Administration Ondansetron HCl 4 mg 03/16/21 18:46 Ondansetron 4 Mg/2 Ml Inj IV Q8H PRN Nausea And Vomiting Oxycodone/Acetaminophen 1 tab 03/16/21 18:46 Oxycodone /Acetaminophen 5-325mg Tab PO Q12H PRN Pain, Moderate (4-6) Sodium Chloride 10 ml 03/16/21 22:00 03/17/21 10:22 Sodium Chloride 0.9% 10 Ml Flush Syringe IV 10 ml BID WALLY Administration Sodium Chloride 10 ml 03/16/21 18:46 Sodium Chloride 0.9% 10 Ml Flush Syringe IV PRN PRN LINE FLUSH Zinc Sulfate 220 mg 03/16/21 22:00 03/17/21 10:22 Zinc Sulfate 220 Mg Cap PO 220 mg BID WALLY Administration
[2021-03-17] MEDS ORDERED: TOCILIZUMAB 800 MG in SODIUM CHLORIDE 0.9% 100 ML IV ONE (13:20)
--- NOTE | 2021-03-17 13:24 | Consultation ---
History of Present Illness - Reason for Consult Consult date: 03/17/21 COVID-19 PUI Requesting physician: LEONELA PARISI - History of Present Illness The patient is a 46-year-old female with morbid obesity, obesity hypoventilation syndrome was admitted to the hospital with headache and difficulty breathing. Upon evaluation in the ER, she was febrile with a T-max of 104 F. She was also hypoxic and placed on high flow nasal cannula. Labs revealed mild leukopenia, CRP 10.6, transaminitis, LDH 944, ferritin 88.4, D-dimer 977, procalcitonin 0.05. Chest x-ray revealed diffuse bilateral pneumonia. Patient admitted to the hospital as COVID-19 PUI. Infectious diseases was consulted for additional evaluation Review of Systems: reviewed in the chart, unable to obtain, minimize risk of transmission Past History Past Medical History: other (See HPI) Past Surgical History: No surgical history, Other (Reviewed) Social history: single. denies: smoking, alcohol abuse, prescription drug abuse Family history: diabetes, hypertension Medications and Allergies Allergies Allergy/AdvReac Type Severity Reaction Status Date / Time No Known Allergies Allergy Verified 03/16/21 17:07 Home Medications Medication Instructions Recorded Confirmed Last Taken Type No Known Home Medications [No 03/16/21 03/16/21 Unknown History Reported Home Medications] Active Meds: Active Medications Acetaminophen (Acetaminophen 325 Mg Tab) 650 mg PO Q4H PRN PRN Reason: Pain MILD(1-3)/Fever >100.5/CUEVA Albuterol (Albuterol 2.5 Mg/3 Ml Nebu) 2.5 mg IH Q4HRT PRN PRN Reason: Shortness Of Breath Ascorbic Acid (Ascorbic Acid 500 Mg Tab) 500 mg PO BID [facility] Last Admin: 03/17/21 10:22 Dose: 500 mg Documented by: Cholecalciferol (Cholecalciferol (Vit D3) 400 Unit Tab) 1,000 unit PO QDAY WALLY Last Admin: 03/17/21 10:22 Dose: 1,000 unit Documented by: Enoxaparin Sodium (Enoxaparin 150 Mg/1 Ml Inj) 130 mg SUB-Q Q12HR WALLY Furosemide (Furosemide 40 Mg/4 Ml Inj) 40 mg IV QDAY WALLY Hydromorphone HCl (Hydromorphone 1 Mg/1 Ml Inj) 0.5 mg IV Q24H PRN PRN Reason: Pain , Severe (7-10) Ceftriaxone Sodium (Rocephin/Ns 2 Gm/100 Ml) 2 gm in 100 mls @ 200 mls/hr IV Q24H [facility]; Protocol Stop: 03/20/21 19:29 Last Admin: 03/16/21 19:30 Dose: 200 mls/hr Documented by: Azithromycin (Zithromax/Ns) 500 mg in 250 mls @ 250 mls/hr IV Q24H [facility]; Protocol Stop: 03/20/21 19:59 Last Admin: 03/16/21 19:55 Dose: 250 mls/hr Documented by: REMDESIVIR 200 mg/ Sodium (Chloride) 250 mls @ 500 mls/hr IV ONCE ONE Stop: 03/17/21 13:49 REMDESIVIR 100 mg/ Sodium (Chloride) 250 mls @ 500 mls/hr IV Q24HR@2100 WALLY Stop: 03/21/21 21:29 TOCILIZUMAB 800 mg/ Sodium (Chloride) 140 mls @ 120 mls/hr IV ONCE ONE Stop: 03/17/21 14:29 Methylprednisolone Sodium Succinate (Methylprednisolone Sod Succinate 40 Mg/1 Ml Inj) 80 mg IV Q8HR [facility] Ondansetron HCl (Ondansetron 4 Mg/2 Ml Inj) 4 mg IV Q8H PRN PRN Reason: Nausea And Vomiting Oxycodone/Acetaminophen (Oxycodone /Acetaminophen 5-325mg Tab) 1 tab PO Q12H P RN PRN Reason: Pain, Moderate (4-6) Sodium Chloride (Sodium Chloride 0.9% 10 Ml Flush Syringe) 10 ml IV BID [facility] Last Admin: 03/17/21 10:22 Dose: 10 ml Documented by: Sodium Chloride (Sodium Chloride 0.9% 10 Ml Flush Syringe) 10 ml IV PRN PRN PRN Reason: LINE FLUSH Sodium Chloride (Sodium Chloride 0.9% 50 Ml Ivpb) 50 ml IV Q24HR@2100 WALLY Stop: 03/21/21 21:01 Zinc Sulfate (Zinc Sulfate 220 Mg Cap) 220 mg PO BID [facility] Last Admin: 03/17/21 10:22 Dose: 220 mg Documented by: Physical Examination - Physical Exam Narrative exam: Physical Exam (reviewed in chart to minimize risk of transmission) Constitutional: deferred Head, Ears, Nose: deferred Eyes: deferred Neck: deferred Oral: deferred Cardiovascular: deferred Respiratory: deferred GI: deferred Musculoskeletal: deferred Skin: deferred Hem/Lymphatic: deferred Psych: deferred Neurological: deferred - Constitutional Vitals: Vital Signs Temp Pulse Resp BP Pulse Ox 98.6 F 97 H 22 118/78 96 03/17/21 05:00 03/17/21 07:01 03/16/21 18:23 03/17/21 07:01 03/17/21 13:19 Temperature -Last 24 Hours Temperature 98.6 F Temperature 104 F Temperature 104 F Results - Labs CBC & Chem 7: 03/17/21 04:42 03/17/21 04:42 Labs: Abnormal lab results 03/16/21 03/16/21 03/16/21 Range/Units 16:57 16:57 16:57 WBC (4.5-11.0) K/mm3 RBC 5.04 H (3.65-5.03) M/mm3 MCV 72 L (79-97) fl MCH 23 L (28-32) pg RDW 19.0 H (13.2-15.2) % [place] % (Auto) 8.5 H (0.0-7.3) % Lymph # (Auto) 0.8 L (1.2-5.4) K/mm3 Seg Neutrophils % 74.6 H (40.0-70.0) % D-Dimer 977.31 H (0-234) ng/mlDDU ABG pH (7.320-7.450) POC ABG pO2 (83-108) mmHg ABG Hemoglobin (12.0-17.5) ABG Oxyhemoglobin (94-98) ABG Sodium (136.0-145.0) mmol/L ABG Glucose (65-95) mg/dL VBG pH (7.320-7.420) Carboxyhemoglobin (0.5-1.5) Sodium 133 L (137-145) mmol/L Chloride 92.0 L (98-107) mmol/L Glucose 131 H (65-100) mg/dL Lactic Acid (0.7-2.0) mmol/L Calcium (8.4-10.2) mg/dL AST 145 H (5-40) units/L ALT 57 H (7-56) units/L Lactate Dehydrogenase (91-180) units/L C-Reactive Protein (0.00-1.30) mg/dL Total Protein 8.7 H (6.3-8.2) g/dL Albumin 3.5 L (3.9-5) g/dL Arterial Blood Glucose (65-95) mg/dL Arterial Blood Ionized Calcium (4.6-5.3) mg/dL 03/16/21 03/16/21 03/16/21 Range/Units 16:57 16:57 17:12 WBC (4.5-11.0) K/mm3 RBC (3.65-5.03) M/mm3 MCV (79-97) fl MCH (28-32) pg RDW (13.2-15.2) % [place] % (Auto) (0.0-7.3) % Lymph # (Auto) (1.2-5.4) K/mm3 Seg Neutrophils % (40.0-70.0) % D-Dimer (0-234) ng/mlDDU ABG pH (7.320-7.450) POC ABG pO2 (83-108) mmHg ABG Hemoglobin (12.0-17.5) ABG Oxyhemoglobin (94-98) ABG Sodium (136.0-145.0) mmol/L ABG Glucose (65-95) mg/dL VBG pH 7.430 H (7.320-7.420) Carboxyhemoglobin (0.5-1.5) Sodium (137-145) mmol/L Chloride (98-107) mmol/L Glucose (65-100) mg/dL Lactic Acid 2.40 H* (0.7-2.0) mmol/L Calcium (8.4-10.2) mg/dL AST (5-40) units/L ALT (7-56) units/L Lactate Dehydrogenase 944 H (91-180) units/L C-Reactive Protein 10.60 H (0.00-1.30) mg/dL Total Protein (6.3-8.2) g/dL Albumin (3.9-5) g/dL Arterial Blood Glucose (65-95) mg/dL Arterial Blood Ionized Calcium (4.6-5.3) mg/dL 09/18/21 09/18/21 09/18/21 Range/Units 04:42 04:42 08:39 WBC 4.3 L (4.5-11.0) K/mm3 RBC (3.65-5.03) M/mm3 MCV 72 L (79-97) fl MCH 23 L (28-32) pg RDW 18.6 H (13.2-15.2) % [place] % (Auto) (0.0-7.3) % Lymph # (Auto) 0.6 L (1.2-5.4) K/mm3 Seg Neutrophils % 80.6 H (40.0-70.0) % D-Dimer (0-234) ng/mlDDU ABG pH 7.457 H (7.320-7.450) POC ABG pO2 57.4 L (83-108) mmHg ABG Hemoglobin 11.6 L (12.0-17.5) ABG Oxyhemoglobin 88.7 L (94-98) ABG Sodium 132.6 L (136.0-145.0) mmol/L ABG Glucose 272 H (65-95) mg/dL VBG pH (7.320-7.420) Carboxyhemoglobin 0.4 L (0.5-1.5) Sodium (137-145) mmol/L Chloride 97.6 L (98-107) mmol/L Glucose 269 H (65-100) mg/dL Lactic Acid (0.7-2.0) mmol/L Calcium 8.3 L (8.4-10.2) mg/dL AST 106 H (5-40) units/L ALT (7-56) units/L Lactate Dehydrogenase (91-180) units/L C-Reactive Protein (0.00-1.30) mg/dL Total Protein (6.3-8.2) g/dL Albumin 3.2 L (3.9-5) g/dL Arterial Blood Glucose 272 H (65-95) mg/dL Arterial Blood Ionized Calcium 4.4 L (4.6-5.3) mg/dL - Imaging and Cardiology Chest x-ray: report reviewed, image reviewed (b/l pna) Assessment and Plan Cultures: SARS CoV2 PCR: Pending 03/16/2021 blood culture: In process A/P: 46-year-old female with morbid obesity, obesity hypoventilation admitted with: #Bilateral pneumonia: Likely secondary to COVID-19, test is pending at this time. Chest x-ray with bilateral patchy airspace opacities, elevated CRP, normal procalcitonin. #Acute hypoxic respiratory failure: Requiring high flow nasal cannula #Morbid obesity #Leukopenia: Likely secondary to viral illness Recs: -on steroids, methylprednisolone, high dose -Given high suspicion for COVID-19, order placed for IV remdesivir x 5 days -If COVID-19 PCR comes back positive, given her oxygen requirements and CRP >7.5, candidate for Actemra (depending on availability), hence order placed for pharmacy with -instructions to cancel if COVID negative -prophylactic anticoagulation based on d-dimer per hospital protocol -procalcitonin is low, abx not needed -trend ferritin, d-dimer, CRP every 2-3 days Araseli Concepcion MD, FACP [facility] ([facility] O: [phone] F: [phone]
--- NOTE | 2021-03-17 14:50 | Electrocardiograph Report ---
[facility] Test Date: 2021-03-16 Test Time: 17:15:28 Pat Name: BUTCH DYER Department: ED Room: [place] [address] Gender: F Postmaster: BRENTON : 1975 Requested By: KATH CAI Order Number: [id number] Reading MD: Sammy Mondragon Measurements Intervals [place] Rate: 119 P: 44 [place]: 129 QRS: 35 QRSD: 74 T: -6 QT: 315 QTc: 444 Interpretive Statements Sinus tachycardia Probable left atrial enlargement Borderline T abnormalities, diffuse leads No previous ECG available for comparison Electronically Signed On 03-17-2021 14:50:14 EDT by Sammy Mondragon
[2021-03-17 14:51] LABS: Alanine Aminotransferase 48 units/L (7-56); Blood Urea Nitrogen 12 mg/dL (7-17); Calcium 8.7 mg/dL (8.4-10.2); Hemolysis Index 44
[2021-03-17 14:56] LABS: BUN/Creatinine Ratio 17
[2021-03-17] MEDS ORDERED: REMDESIVIR 200 MG in SODIUM CHLORIDE 0.9% 250ML 250 ML IV ONE (15:00)
[2021-03-17] MEDS ORDERED: SODIUM CHLORIDE 0.9% 50 ML IVPB IV ONE (15:00)
[2021-03-17] MEDS: FUROSEMIDE 40 MG/4 ML INJ IV SCH (15:28)
[2021-03-17] MEDS: ENOXAPARIN 150 MG/1 ML INJ SUB-Q SCH ×2 (15:29→22:27)
[2021-03-17] MEDS ORDERED: ALPRAZolam 0.25 MG TAB PO PRN (21:47)
[2021-03-17] MEDS ORDERED: ENOXAPARIN 100 MG/1 ML INJ SUB-Q SCH (22:00)
[2021-03-18] MEDS ORDERED: DOCUSATE SODIUM 100 MG CAP PO ONE (06:03)
[2021-03-18 06:22] LABS: Hemoglobin 10.4 gm/dl (10.1-14.3); Mean Corpuscular HGB Conc 31 % (30-34); Mean Corpuscular Volume 72 fl (79-97); Platelet Count 279 K/mm3 (140-440); Red Blood Count 4.59 M/mm3 (3.65-5.03); Red Cell Distribution Width 18.5 % (13.2-15.2)
[2021-03-18] MEDS: methylPREDNISolone Sod Succinate 40 MG/1 ML INJ IV SCH ×3 (06:22→22:11)
[2021-03-18 06:32] LABS: Alanine Aminotransferase 47 units/L (7-56); BUN/Creatinine Ratio 23; Blood Urea Nitrogen 18 mg/dL (7-17); Calcium 8.2 mg/dL (8.4-10.2); Hemolysis Index 12
--- NOTE | 2021-03-18 10:27 | Progress Note ---
Assessment and Plan Assessment and plan: Assessment and Plan Assessment and plan: 46 YO Female with Obesity Hypoventilation Syndrome presents ED for evaluation. Patient reports "I cannot breathe, my head hurts". Patient states that she has experienced fever, generalized weakness, fatigue, malaise, dry cough, headache, diminished sense of smell, diminished sense of taste over the past 5 days with persistent and worsening symptoms over the same timeframe. Patient transported to [facility] via private vehicle for further care and evaluation of the aforementioned symptoms. The patient was seen and evaluated in the emergency department. All lab and imaging studies reviewed. The patient was found to be febrile with a temperature of 104 F as well as a pulse oximetry of 45% on room air which is consistent with acute hypoxemic respiratory failure. Patient was placed on supplemental oxygen without significant improvement in symptoms and was subsequently placed on high flow supplemental oxygen with mild improvement in symptoms. Chest x-ray revealed bilateral pneumonia. Patient admitted to medical floor and initiated on pneumonia as well as coronavirus protocols. Pulmonary team consulted in ED. Nephrology team consulted in ED. Patient denies chest pain, skin rash, recent ill contacts unilateral leg swelling, calf pain prolonged travel/immobility, individual/family history of DVT/PE/bleeding/blood clotting disorders. No prior admission for review. No medication listed at time of admission for reconciliation. Advanced care planning conducted in ED. Patient is not vaccinated against COVID-19. 03/17: Patient still severely hypoxic she is unvaccinated. ID recommended that she is lies prone as much as she can, I will also adjusted steroids for higher dose for better management. I also added some Lasix. Pulmonary input is noted will await ID input as patient will likely need remdesivir. Will monitor renal function. Continue monitoring inflammatory markers. Condition guarded discussed extensively with the patient critical care time 35 minutes 03/18/21 Patient is seen and examined Labs and medication reviewed Patient complained of less shortness of breath. No coughing. But patient is on high flow 40 L with 100% FiO2. O2 sat 94%. Continue current management. Solu- Medrol 80 mg IV every 8 hours remdesivir. Vitamin C, vitamin D and zinc and Tocilizumab. Wean oxygen slowly as tolerated. Infectious disease and pulmonary follow-up. Follow Covid inflammatory marker. (1) Acute hypoxemic respiratory failure Current Visit: Yes Status: Acute Plan to address problem: Chest x-ray, supplemental oxygen, pulse oximetry, nebulizer therapy, high flow supplemental oxygen at this time, if patient is unable to maintain pulse oximetry will consider noninvasive positive pressure ventilation with BiPAP. Pulmonary team consulted. (2) Suspected 2019-nCoV infection Current Visit: Yes Status: Acute Plan to address problem: Coronavirus protocol: Contact precaution, isolation precautions, IV antibiotic therapy, IV steroid therapy, vitamin C therapy, vitamin D therapy, zinc therapy, high flow submental oxygen, prophylactic anticoagulation (3) Pneumonia Current Visit: Yes Status: Acute Plan to address problem: Pneumonia protocol: Chest x-ray, CBC, CMP, supplemental oxygen, pulse oximetry, nebulizer therapy, prone positioning while in bed, pulmonary toilet, (4) Obesity hypoventilation syndrome Current Visit: Yes Status: Acute Plan to address problem: Balanced diet, increase physical activity discharge, outpatient pulmonary follow-up for sleep study, outpatient bariatric surgery follow-up. (5) DVT prophylaxis Current Visit: Yes Status: Acute Plan to address problem: SCD to bilateral lower extremities while in bed, prophylactic anticoagulation (6) Advance care planning Current Visit: Yes Status: Acute Plan to address problem: Disease education conducted, care plan discussed, diagnosis discussed, prognosis discussed, patient is full code, patient knowledges understanding and agreement with care plan, +30 minutes. (7) 2019 novel coronavirus vaccination not done Current Visit: Yes Status: Acute Plan to address problem: Pt counseled. 03/18/21 Patient is seen and examined Labs and medication reviewed Patient complained of less shortness of breath. No coughing. But patient is on high flow 40 L with 100% FiO2. O2 sat 94%. Continue current management. Solu- Medrol 80 mg IV every 8 hours remdesivir. Vitamin C, vitamin D and zinc and Tocilizumab. Wean oxygen slowly as tolerated. Infectious disease and pulmonary follow-up. Follow Covid inflammatory marker. History Interval history: Patient is seen and examined Labs and medication reviewed Patient complained of less shortness of breath. No coughing. But patient is on high flow 40 L with 100% FiO2. O2 sat 94% Hospitalist Physical - Constitutional Vitals: Temp Pulse Resp BP Pulse Ox 98.2 F 101 H 22 131/75 94 03/18/21 04:39 03/18/21 04:39 03/18/21 04:39 03/18/21 04:39 03/18/21 10:00 General appearance: Present: mild distress, obese - EENT Eyes: Present: PERRL, EOM intact ENT: hearing intact, clear oral mucosa, dentition normal - Neck Neck: Present: supple, normal ROM - Respiratory Respiratory effort: normal Respiratory: left: diminished - Cardiovascular Rhythm: regular Heart Sounds: Present: S1 & S2 - Extremities Extremities: no ischemia, pulses intact, No edema Peripheral Pulses: within normal limits - Abdominal General gastrointestinal: soft, non-tender, non-distended, normal bowel sounds - Integumentary Integumentary: Present: clear, warm, dry - Psychiatric Psychiatric: appropriate mood/affect, intact judgment & insight - Neurologic Neurologic: CNII-XII intact, moves all extremities - Allied Health Allied health notes reviewed: nursing Results - Labs CBC & Chem 7: 03/18/21 05:55 03/18/21 05:55 Labs: Laboratory Last Values WBC 8.5 K/mm3 (4.5-11.0) 03/18/21 05:55 RBC 4.59 M/mm3 (3.65-5.03) 03/18/21 05:55 Hgb 10.4 gm/dl (10.1-14.3) 03/18/21 05:55 Hct 33.0 % (30.3-42.9) 03/18/21 05:55 MCV 72 fl (79-97) L 03/18/21 05:55 MCH 23 pg (28-32) L 03/18/21 05:55 MCHC 31 % (30-34) 03/18/21 05:55 RDW 18.5 % (13.2-15.2) H 03/18/21 05:55 Plt Count 279 K/mm3 (140-440) 03/18/21 05:55 Lymph % (Auto) 14.4 % (13.4-35.0) 03/17/21 04:42 [place] % (Auto) 4.9 % (0.0-7.3) 03/17/21 04:42 Eos % (Auto) 0.0 % (0.0-4.3) 03/17/21 04:42 Baso % (Auto) 0.1 % (0.0-1.8) 03/17/21 04:42 Lymph # (Auto) 0.6 K/mm3 (1.2-5.4) L 03/17/21 04:42 [place] # (Auto) 0.2 K/mm3 (0.0-0.8) 03/17/21 04:42 Eos # (Auto) 0.0 K/mm3 (0.0-0.4) 03/17/21 04:42 Baso # (Auto) 0.0 K/mm3 (0.0-0.1) 03/17/21 04:42 Seg Neutrophils % 80.6 % (40.0-70.0) H 03/17/21 04:42 Seg Neutrophils # 3.5 K/mm3 (1.8-7.7) 03/17/21 04:42 PT 13.0 Sec. (12.2-14.9) 03/16/21 16:57 INR 0.93 (0.87-1.13) 03/16/21 16:57 D-Dimer 977.31 ng/mlDDU (0-234) H 03/16/21 16:57 ABG pH 7.457 (7.320-7.450) H 03/17/21 08:39 POC ABG pCO2 42.4 mmHg (32.0-48.0) 03/17/21 08:39 POC ABG pO2 57.4 mmHg (83-108) L 03/17/21 08:39 POC ABG HCO3 29.3 03/17/21 08:39 ABG O2 Saturation 89.3 (0-100) 03/17/21 08:39 POC ABG Base Excess 4.9 03/17/21 08:39 ABG Hemoglobin 11.6 (12.0-17.5) L 03/17/21 08:39 ABG Oxyhemoglobin 88.7 (94-98) L 03/17/21 08:39 ABG Methemoglobin 0.3 (0.0-1.5) 03/17/21 08:39 ABG Sodium 132.6 mmol/L (136.0-145.0) L 03/17/21 08:39 ABG Potassium 4.1 mmol/L (3.40-4.50) 03/17/21 08:39 ABG Chloride 98.0 mmol/L (98-107) 03/17/21 08:39 ABG Glucose 272 mg/dL (65-95) H 03/17/21 08:39 VBG pH 7.430 (7.320-7.420) H 03/16/21 16:57 Carboxyhemoglobin 0.4 (0.5-1.5) L 03/17/21 08:39 FiO2 % 100.0 03/17/21 08:39 Sodium 139 mmol/L (137-145) 03/18/21 05:55 Potassium 4.1 mmol/L (3.6-5.0) 03/18/21 05:55 Chloride 97.5 mmol/L (98-107) L 03/18/21 05:55 Carbon Dioxide 33 mmol/L (22-30) H 03/18/21 05:55 Anion Gap 13 mmol/L 03/18/21 05:55 BUN 18 mg/dL (7-17) H 03/18/21 05:55 Creatinine 0.8 mg/dL (0.6-1.2) 03/18/21 05:55 Estimated GFR > 60 ml/min 03/18/21 05:55 BUN/Creatinine Ratio 23 % 03/18/21 05:55 Glucose 237 mg/dL (65-100) H 03/18/21 05:55 Lactic Acid 0.90 mmol/L (0.7-2.0) 03/16/21 19:48 Calcium 8.2 mg/dL (8.4-10.2) L 03/18/21 05:55 Ferritin 88.4 ng/mL (10.0-200.0) 03/16/21 17:12 Total Bilirubin 0.30 mg/dL (0.1-1.2) 03/18/21 05:55 AST 60 units/L (5-40) H 03/18/21 05:55 ALT 47 units/L (7-56) 03/18/21 05:55 Alkaline Phosphatase 54 units/L (35-129) 03/18/21 05:55 Lactate Dehydrogenase 944 units/L (91-180) H 03/16/21 17:12 C-Reactive Protein 10.60 mg/dL (0.00-1.30) H 03/16/21 17:12 NT-Pro-B Natriuret Pep 113.8 pg/mL (0-450) 03/16/21 17:12 Total Protein 6.9 g/dL (6.3-8.2) 03/18/21 05:55 Albumin 3.0 g/dL (3.9-5) L 03/18/21 05:55 Albumin/Globulin Ratio 0.8 % 03/18/21 05:55 Procalcitonin < 0.05 ng/mL (<0.15) 03/16/21 17:12 HCG, Qual Negative (Negative) 03/16/21 16:57 Arterial Blood Glucose 272 mg/dL (65-95) H 03/17/21 08:39 Arterial Blood Ionized Calcium 4.4 mg/dL (4.6-5.3) L 03/17/21 08:39 Urine Color Yellow (Yellow) 03/16/21 Unknown Urine Turbidity Clear (Clear) 03/16/21 Unknown Urine pH 6.0 (5.0-7.0) 03/16/21 Unknown Ur Specific [place] 1.014 (1.003-1.030) 03/16/21 Unknown Urine Protein 100 mg/dl mg/dL (Negative) 03/16/21 Unknown Urine Glucose (UA) >=500 mg/dL (Negative) 03/16/21 Unknown Urine Ketones Neg mg/dL (Negative) 03/16/21 Unknown Urine Blood Neg (Negative) 03/16/21 Unknown Urine Nitrite Neg (Negative) 03/16/21 Unknown Urine Bilirubin Neg (Negative) 03/16/21 Unknown Urine Urobilinogen < 2.0 mg/dL (<2.0) 03/16/21 Unknown Ur Leukocyte Esterase Neg (Negative) 03/16/21 Unknown Urine WBC (Auto) 2.0 /HPF (0.0-6.0) 03/16/21 Unknown Urine RBC (Auto) 1.0 /HPF (0.0-6.0) 03/16/21 Unknown U Epithel Cells (Auto) 1.0 /HPF (0-13.0) 03/16/21 Unknown Urine Bacteria (Auto) 1+ /HPF (Negative) 03/16/21 Unknown Urine Mucus Few /HPF 03/16/21 Unknown Coronavirus (PCR) Positive (Negative) A 03/17/21 09:10 Microbiology: Microbiology 03/16/21 17:14 Peripheral/Venous Blood Culture - Preliminary NO GROWTH AFTER 24 HOURS 03/16/21 16:57 Peripheral/Venous Blood Culture - Preliminary NO GROWTH AFTER 24 HOURS - Imaging and Cardiology Chest x-ray: report reviewed [place]/IV: Voiding Method Bedside Commode Active Medications - Current Medications Current Medications: Generic Name Dose Route Start Last Admin Trade Name Freq PRN Reason Stop Dose Admin Acetaminophen 650 mg 03/16/21 18:46 03/17/21 22:27 Acetaminophen 325 Mg Tab PO 650 mg Q4H PRN Administration Pain MILD(1-3)/Fever >100.5/CUEVA Albuterol 2.5 mg 03/16/21 18:46 Albuterol 2.5 Mg/3 Ml Nebu IH Q4HRT PRN Shortness Of Breath Alprazolam 0.25 mg 03/17/21 21:47 03/17/21 22:27 Alprazolam 0.25 Mg Tab PO 0.25 mg Q8H PRN Administration Anxiety Ascorbic Acid 500 mg 03/16/21 22:00 03/17/21 22:27 Ascorbic Acid 500 Mg Tab PO 500 mg BID WALLY Administration Cholecalciferol 1,000 unit 03/17/21 10:00 03/17/21 10:22 Cholecalciferol (Vit D3) 400 Unit Tab PO 1,000 unit QDAY WALLY Administration Enoxaparin Sodium 130 mg 03/17/21 12:00 03/17/21 22:27 Enoxaparin 150 Mg/1 Ml Inj SUB-Q 130 mg Q12HR WALLY Administration Furosemide 40 mg 03/17/21 12:00 03/17/21 15:28 Furosemide 40 Mg/4 Ml Inj IV 40 mg QDAY WALLY Administration Hydromorphone HCl 0.5 mg 03/16/21 18:46 Hydromorphone 1 Mg/1 Ml Inj IV Q24H PRN Pain , Severe (7-10) REMDESIVIR 100 mg/ Sodium 250 mls @ 500 mls/hr 03/18/21 21:00 Chloride IV 03/21/21 21:29 Q24HR@2100 WALLY TOCILIZUMAB 800 mg/ Sodium 140 mls @ 120 mls/hr 03/17/21 13:20 Chloride IV 03/17/21 14:29 ONCE ONE Methylprednisolone Sodium Succinate 80 mg 03/17/21 11:22 03/18/21 06:22 Methylprednisolone Sod Succinate 40 Mg/1 Ml Inj IV 80 mg Q8HR WALYL Administration Ondansetron HCl 4 mg 03/16/21 18:46 Ondansetron 4 Mg/2 Ml Inj IV Q8H PRN Nausea And Vomiting Oxycodone/Acetaminophen 1 tab 03/16/21 18:46 Oxycodone /Acetaminophen 5-325mg Tab PO Q12H PRN Pain, Moderate (4-6) Sodium Chloride 10 ml 03/16/21 22:00 03/17/21 22:27 Sodium Chloride 0.9% 10 Ml Flush Syringe IV 10 ml BID WALLY Administration Sodium Chloride 10 ml 03/16/21 18:46 03/18/21 06:24 Sodium Chloride 0.9% 10 Ml Flush Syringe IV 10 ml PRN PRN Administration LINE FLUSH Sodium Chloride 50 ml 03/18/21 21:00 Sodium Chloride 0.9% 50 Ml Ivpb IV 03/21/21 21:01 Q24HR@2100 WALLY Zinc Sulfate 220 mg 03/16/21 22:00 03/17/21 22:27 Zinc Sulfate 220 Mg Cap PO 220 mg BID WALLY Administration Nutrition/Malnutrition Assess - Malnutrition Assessment Minimum of two criteria: Yes - Attestation Statement I have reviewed and agreed w/ Malnutrition eval & tx plan: Yes
[2021-03-18] MEDS: ENOXAPARIN 150 MG/1 ML INJ SUB-Q SCH ×2 (11:17→22:09)
[2021-03-18] MEDS: ASCORBIC ACID 500 MG TAB PO SCH ×2 (11:18→22:12)
[2021-03-18] MEDS: FUROSEMIDE 40 MG/4 ML INJ IV SCH (11:18)
[2021-03-18] MEDS: ZINC SULFATE 220 MG CAP PO SCH ×2 (11:18→22:12)
[2021-03-18] MEDS: CHOLECALCIFEROL (VIT D3) 400 UNIT TAB PO SCH (11:18)
--- NOTE | 2021-03-18 11:43 | Progress Note ---
Subjective Interval history: feels better wants to go home Objective Vital Signs - 12hr 03/18/21 03/18/21 03/18/21 00:27 04:39 10:00 Temperature 98.2 F 98.2 F Pulse Rate 101 H 101 H Respiratory 22 22 Rate Blood Pressure 137/82 Blood Pressure 131/75 [Right] O2 Sat by Pulse 97 97 94 Oximetry Constitutional: other (mild distress) Eyes: non-icteric ENT: oropharynx moist Neck: supple Effort: normal Ascultation: Bilateral: diminished breath sounds Cardiovascular: regular rate and rhythm Gastrointestinal: normoactive bowel sounds, soft, non-tender, non-distended, other (obese) Integumentary: normal Extremities: no cyanosis Neurologic: normal mental status, non-focal exam CBC and BMP: 03/18/21 05:55 03/18/21 05:55 ABG, PT/INR, D-dimer: ABG ABG pH 7.457 (7.320-7.450) H 03/17/21 08:39 POC ABG pCO2 42.4 mmHg (32.0-48.0) 03/17/21 08:39 POC ABG pO2 57.4 mmHg (83-108) L 03/17/21 08:39 POC ABG HCO3 29.3 03/17/21 08:39 ABG O2 Saturation 89.3 (0-100) 03/17/21 08:39 PT/INR, D-dimer PT 13.0 Sec. (12.2-14.9) 03/16/21 16:57 INR 0.93 (0.87-1.13) 03/16/21 16:57 D-Dimer 977.31 ng/mlDDU (0-234) H 03/16/21 16:57 Abnormal lab findings: Abnormal Labs 03/16/21 03/16/21 03/16/21 16:57 16:57 16:57 WBC RBC 5.04 H MCV 72 L MCH 23 L RDW 19.0 H [place] % (Auto) 8.5 H Lymph # (Auto) 0.8 L Seg Neutrophils % 74.6 H D-Dimer 977.31 H ABG pH POC ABG pO2 ABG Hemoglobin ABG Oxyhemoglobin ABG Sodium ABG Glucose VBG pH Carboxyhemoglobin Sodium 133 L Chloride 92.0 L Carbon Dioxide BUN Glucose 131 H Lactic Acid Calcium AST 145 H ALT 57 H Lactate Dehydrogenase C-Reactive Protein Total Protein 8.7 H Albumin 3.5 L Arterial Blood Glucose Arterial Blood Ionized Calcium Coronavirus (PCR) 03/16/21 03/16/21 03/16/21 16:57 16:57 17:12 WBC RBC MCV MCH RDW [place] % (Auto) Lymph # (Auto) Seg Neutrophils % D-Dimer ABG pH POC ABG pO2 ABG Hemoglobin ABG Oxyhemoglobin ABG Sodium ABG Glucose VBG pH 7.430 H Carboxyhemoglobin Sodium Chloride Carbon Dioxide BUN Glucose Lactic Acid 2.40 H* Calcium AST ALT Lactate Dehydrogenase 944 H C-Reactive Protein 10.60 H Total Protein Albumin Arterial Blood Glucose Arterial Blood Ionized Calcium Coronavirus (PCR) 03/17/21 03/17/21 03/17/21 04:42 04:42 08:39 WBC 4.3 L RBC MCV 72 L MCH 23 L RDW 18.6 H [place] % (Auto) Lymph # (Auto) 0.6 L Seg Neutrophils % 80.6 H D-Dimer ABG pH 7.457 H POC ABG pO2 57.4 L ABG Hemoglobin 11.6 L ABG Oxyhemoglobin 88.7 L ABG Sodium 132.6 L ABG Glucose 272 H VBG pH Carboxyhemoglobin 0.4 L Sodium Chloride 97.6 L Carbon Dioxide BUN Glucose 269 H Lactic Acid Calcium 8.3 L AST 106 H ALT Lactate Dehydrogenase C-Reactive Protein Total Protein Albumin 3.2 L Arterial Blood Glucose 272 H Arterial Blood Ionized Calcium 4.4 L Coronavirus (PCR) 03/17/21 03/17/21 03/18/21 09:10 14:20 05:55 WBC RBC MCV 72 L MCH 23 L RDW 18.5 H [place] % (Auto) Lymph # (Auto) Seg Neutrophils % D-Dimer ABG pH POC ABG pO2 ABG Hemoglobin ABG Oxyhemoglobin ABG Sodium ABG Glucose VBG pH Carboxyhemoglobin Sodium Chloride 97.3 L Carbon Dioxide BUN Glucose 234 H Lactic Acid Calcium AST 87 H ALT Lactate Dehydrogenase C-Reactive Protein Total Protein Albumin 3.0 L Arterial Blood Glucose Arterial Blood Ionized Calcium Coronavirus (PCR) Positive A 03/18/21 05:55 WBC RBC MCV MCH RDW [place] % (Auto) Lymph # (Auto) Seg Neutrophils % D-Dimer ABG pH POC ABG pO2 ABG Hemoglobin ABG Oxyhemoglobin ABG Sodium ABG Glucose VBG pH Carboxyhemoglobin Sodium Chloride 97.5 L Carbon Dioxide 33 H BUN 18 H Glucose 237 H Lactic Acid Calcium 8.2 L AST 60 H ALT Lactate Dehydrogenase C-Reactive Protein Total Protein Albumin 3.0 L Arterial Blood Glucose Arterial Blood Ionized Calcium Coronavirus (PCR)
[2021-03-18] MEDS: MAGNESIUM HYDROXIDE (MOM) ORAL LIQD UDC PO PRN (17:30)
[2021-03-18] MEDS: REMDESIVIR 100 MG in SODIUM CHLORIDE 0.9% 250ML 250 ML IV SCH (22:08)
[2021-03-18] MEDS: SODIUM CHLORIDE 0.9% 50 ML IVPB IV SCH (22:11)
[2021-03-19] MEDS: methylPREDNISolone Sod Succinate 40 MG/1 ML INJ IV SCH ×2 (06:08→13:18)
[2021-03-19] MEDS: MAGNESIUM HYDROXIDE (MOM) ORAL LIQD UDC PO PRN (06:17)
[2021-03-19 08:54] LABS: Alanine Aminotransferase 37 units/L (7-56); Albumin 2.9 g/dL (3.9-5); BUN/Creatinine Ratio 23; Blood Urea Nitrogen 21 mg/dL (7-17); Calcium 8.1 mg/dL (8.4-10.2); Hemolysis Index 7
[2021-03-19] MEDS: ZINC SULFATE 220 MG CAP PO SCH ×2 (09:14→21:06)
[2021-03-19] MEDS: FUROSEMIDE 40 MG/4 ML INJ IV SCH (09:14)
[2021-03-19] MEDS: ASCORBIC ACID 500 MG TAB PO SCH ×2 (09:14→21:06)
[2021-03-19] MEDS: ENOXAPARIN 150 MG/1 ML INJ SUB-Q SCH ×2 (09:14→21:05)
[2021-03-19] MEDS ORDERED: FLEET ENEMA PR ONE ×2 (13:12→17:00)
[2021-03-19] MEDS: CHOLECALCIFEROL (VIT D3) 1000 UNIT (25 mcg) TAB PO SCH (13:18)
--- NOTE | 2021-03-19 13:59 | Progress Note ---
Assessment and Plan Assessment and plan: 46 YO Female with Obesity Hypoventilation Syndrome presents ED for evaluation. Patient reports "I cannot breathe, my head hurts". Patient states that she has experienced fever, generalized weakness, fatigue, malaise, dry cough, headache, diminished sense of smell, diminished sense of taste over the past 5 days with persistent and worsening symptoms over the same timeframe. Patient transported to [facility] via private vehicle for further care and evaluation of the aforementioned symptoms. The patient was seen and evaluated in the emergency department. All lab and imaging studies reviewed. The patient was found to be febrile with a temperature of 104 F as well as a pulse oximetry of 45% on room air which is consistent with acute hypoxemic respiratory failure. Patient was placed on supplemental oxygen without significant improvement in symptoms and was subsequently placed on high flow supplemental oxygen with mild improvement in symptoms. Chest x-ray revealed bilateral pneumonia. Patient admitted to medical floor and initiated on pneumonia as well as coronavirus protocols. Pulmonary team consulted in ED. Nephrology team consulted in ED. Patient denies chest pain, skin rash, recent ill contacts unilateral leg swelling, calf pain prolonged travel/immobility, individual/family history of DVT/PE/bleeding/blood clotting disorders. No prior admission for review. No medication listed at time of admission for reconciliation. Advanced care planning conducted in ED. Patient is not vaccinated against COVID-19. 03/17: Patient still severely hypoxic she is unvaccinated. ID recommended that she is lies prone as much as she can, I will also adjusted steroids for higher dose for better management. I also added some Lasix. Pulmonary input is noted will await ID input as patient will likely need remdesivir. Will monitor renal function. Continue monitoring inflammatory markers. Condition guarded discussed extensively with the patient critical care time 35 minutes 03/18/21 Patient is seen and examined Labs and medication reviewed Patient complained of less shortness of breath. No coughing. But patient is on high flow 40 L with 100% FiO2. O2 sat 94%. Continue current management. Solu- Medrol 80 mg IV every 8 hours remdesivir. Vitamin C, vitamin D and zinc and Tocilizumab. Wean oxygen slowly as tolerated. Infectious disease and pulmonary follow-up. Follow Covid inflammatory marker. 03/19: Continue supportive care. Continue steroid therapy. Pulmonary and ID input noted. Considering constipation will start the patient on some antibiotics and scheduled stool softeners. We will add some Lasix for better control of fluid management to help with oxygenation. Patient unfortunately still in guarded prognosis considering morbid obesity and COVID-19 in addition with severe hypoxia. (1) Acute hypoxemic respiratory failure Current Visit: Yes Status: Acute Plan to address problem: Chest x-ray, supplemental oxygen, pulse oximetry, nebulizer therapy, high flow supplemental oxygen at this time, if patient is unable to maintain pulse oximetry will consider noninvasive positive pressure ventilation with BiPAP. Pulmonary team consulted. (2) 2019-nCoV infection Current Visit: Yes Status: Acute Plan to address problem: Coronavirus protocol: Contact precaution, isolation precautions, IV antibiotic therapy, IV steroid therapy, vitamin C therapy, vitamin D therapy, zinc therapy, high flow submental oxygen, prophylactic anticoagulation (3) Pneumonia Current Visit: Yes Status: Acute Plan to address problem: Pneumonia protocol: Chest x-ray, CBC, CMP, supplemental oxygen, pulse oximetry, nebulizer therapy, prone positioning while in bed, pulmonary toilet, (4) Obesity hypoventilation syndrome Current Visit: Yes Status: Acute Plan to address problem: Balanced diet, increase physical activity discharge, outpatient pulmonary follow-up for sleep study, outpatient bariatric surgery follow-up. (5) constipation (6) DVT prophylaxis Current Visit: Yes Status: Acute Plan to address problem: SCD to bilateral lower extremities while in bed, prophylactic anticoagulation (7) Advance care planning Current Visit: Yes Status: Acute Plan to address problem: Disease education conducted, care plan discussed, diagnosis discussed, prognosis discussed, patient is full code, patient knowledges understanding and agreement with care plan, +30 minutes. (8) 2019 novel coronavirus vaccination not done Current Visit: Yes Status: Acute Plan to address problem: Pt counseled. History Interval history: Patient seen and examined today still severely hypoxic on high flow 100% satting 94%. Reports constipation so she has not moved her bowels in 6 days Hospitalist Physical - Physical exam Narrative exam: General appearance: Present: mild distress, obese, on high flow - EENT Eyes: Present: PERRL ENT: hearing intact, clear oral mucosa - Neck Neck: Present: supple, normal ROM - Respiratory Respiratory effort: labored, accessory muscle use, stridor Respiratory: bilateral: diminished, rhonchi - Cardiovascular Heart Sounds: Present: S1 & S2. Absent: rub, click - Extremities Extremities: pulses symmetrical, No edema Peripheral Pulses: within normal limits - Abdominal General gastrointestinal: Present: soft, non-tender, non-distended, normal bowel sounds Female genitourinary: Present: normal - Integumentary Integumentary: Present: clear, warm, dry - Musculoskeletal Musculoskeletal: gait normal, strength equal bilaterally - Psychiatric Psychiatric: appropriate mood/affect, intact judgment & insight - Neurologic Neurologic: CNII-XII intact, moves all extremities - Constitutional Vitals: Temp Pulse Resp BP Pulse Ox 97.6 F 102 H 22 134/72 95 03/19/21 05:26 03/19/21 05:26 03/19/21 05:26 03/19/21 05:25 03/19/21 13:21 General appearance: Present: mild distress, obese Results - Labs CBC & Chem 7: 03/18/21 05:55 03/19/21 07:42 Labs: Laboratory Last Values WBC 8.5 K/mm3 (4.5-11.0) 03/18/21 05:55 RBC 4.59 M/mm3 (3.65-5.03) 03/18/21 05:55 Hgb 10.4 gm/dl (10.1-14.3) 03/18/21 05:55 Hct 33.0 % (30.3-42.9) 03/18/21 05:55 MCV 72 fl (79-97) L 03/18/21 05:55 MCH 23 pg (28-32) L 03/18/21 05:55 MCHC 31 % (30-34) 03/18/21 05:55 RDW 18.5 % (13.2-15.2) H 03/18/21 05:55 Plt Count 279 K/mm3 (140-440) 03/18/21 05:55 Lymph % (Auto) 14.4 % (13.4-35.0) 03/17/21 04:42 [place] % (Auto) 4.9 % (0.0-7.3) 03/17/21 04:42 Eos % (Auto) 0.0 % (0.0-4.3) 03/17/21 04:42 Baso % (Auto) 0.1 % (0.0-1.8) 03/17/21 04:42 Lymph # (Auto) 0.6 K/mm3 (1.2-5.4) L 03/17/21 04:42 [place] # (Auto) 0.2 K/mm3 (0.0-0.8) 03/17/21 04:42 Eos # (Auto) 0.0 K/mm3 (0.0-0.4) 03/17/21 04:42 Baso # (Auto) 0.0 K/mm3 (0.0-0.1) 03/17/21 04:42 Seg Neutrophils % 80.6 % (40.0-70.0) H 03/17/21 04:42 Seg Neutrophils # 3.5 K/mm3 (1.8-7.7) 03/17/21 04:42 PT 13.0 Sec. (12.2-14.9) 03/16/21 16:57 INR 0.93 (0.87-1.13) 03/16/21 16:57 D-Dimer 581.09 ng/mlDDU (0-234) H 03/19/21 08:06 ABG pH 7.457 (7.320-7.450) H 03/17/21 08:39 POC ABG pCO2 42.4 mmHg (32.0-48.0) 03/17/21 08:39 POC ABG pO2 57.4 mmHg (83-108) L 03/17/21 08:39 POC ABG HCO3 29.3 03/17/21 08:39 ABG O2 Saturation 89.3 (0-100) 03/17/21 08:39 POC ABG Base Excess 4.9 03/17/21 08:39 ABG Hemoglobin 11.6 (12.0-17.5) L 03/17/21 08:39 ABG Oxyhemoglobin 88.7 (94-98) L 03/17/21 08:39 ABG Methemoglobin 0.3 (0.0-1.5) 03/17/21 08:39 ABG Sodium 132.6 mmol/L (136.0-145.0) L 03/17/21 08:39 ABG Potassium 4.1 mmol/L (3.40-4.50) 03/17/21 08:39 ABG Chloride 98.0 mmol/L (98-107) 03/17/21 08:39 ABG Glucose 272 mg/dL (65-95) H 03/17/21 08:39 VBG pH 7.430 (7.320-7.420) H 03/16/21 16:57 Carboxyhemoglobin 0.4 (0.5-1.5) L 03/17/21 08:39 FiO2 % 100.0 03/17/21 08:39 Sodium 136 mmol/L (137-145) L 03/19/21 07:42 Potassium 4.2 mmol/L (3.6-5.0) 03/19/21 07:42 Chloride 94.1 mmol/L (98-107) L 03/19/21 07:42 Carbon Dioxide 30 mmol/L (22-30) 03/19/21 07:42 Anion Gap 16 mmol/L 03/19/21 07:42 BUN 21 mg/dL (7-17) H 03/19/21 07:42 Creatinine 0.9 mg/dL (0.6-1.2) 03/19/21 07:42 Estimated GFR > 60 ml/min 03/19/21 07:42 BUN/Creatinine Ratio 23 % 03/19/21 07:42 Glucose 172 mg/dL (65-100) H 03/19/21 07:42 Lactic Acid 0.90 mmol/L (0.7-2.0) 03/16/21 19:48 Calcium 8.1 mg/dL (8.4-10.2) L 03/19/21 07:42 Ferritin 65.2 ng/mL (10.0-200.0) 03/19/21 08:06 Total Bilirubin 0.30 mg/dL (0.1-1.2) 03/19/21 07:42 AST 32 units/L (5-40) 03/19/21 07:42 ALT 37 units/L (7-56) 03/19/21 07:42 Alkaline Phosphatase 58 units/L (35-129) 03/19/21 07:42 Lactate Dehydrogenase 659 units/L (91-180) H 03/19/21 08:06 C-Reactive Protein 2.00 mg/dL (0.00-1.30) H 03/19/21 08:06 NT-Pro-B Natriuret Pep 113.8 pg/mL (0-450) 03/16/21 17:12 Total Protein 6.9 g/dL (6.3-8.2) 03/19/21 07:42 Albumin 2.9 g/dL (3.9-5) L 03/19/21 07:42 Albumin/Globulin Ratio 0.7 % 03/19/21 07:42 Procalcitonin < 0.05 ng/mL (<0.15) 03/16/21 17:12 HCG, Qual Negative (Negative) 03/16/21 16:57 Arterial Blood Glucose 272 mg/dL (65-95) H 03/17/21 08:39 Arterial Blood Ionized Calcium 4.4 mg/dL (4.6-5.3) L 03/17/21 08:39 Urine Color Yellow (Yellow) 03/16/21 Unknown Urine Turbidity Clear (Clear) 03/16/21 Unknown Urine pH 6.0 (5.0-7.0) 03/16/21 Unknown Ur Specific [place] 1.014 (1.003-1.030) 03/16/21 Unknown Urine Protein 100 mg/dl mg/dL (Negative) 03/16/21 Unknown Urine Glucose (UA) >=500 mg/dL (Negative) 03/16/21 Unknown Urine Ketones Neg mg/dL (Negative) 03/16/21 Unknown Urine Blood Neg (Negative) 03/16/21 Unknown Urine Nitrite Neg (Negative) 03/16/21 Unknown Urine Bilirubin Neg (Negative) 03/16/21 Unknown Urine Urobilinogen < 2.0 mg/dL (<2.0) 03/16/21 Unknown Ur Leukocyte Esterase Neg (Negative) 03/16/21 Unknown Urine WBC (Auto) 2.0 /HPF (0.0-6.0) 03/16/21 Unknown Urine RBC (Auto) 1.0 /HPF (0.0-6.0) 03/16/21 Unknown U Epithel Cells (Auto) 1.0 /HPF (0-13.0) 03/16/21 Unknown Urine Bacteria (Auto) 1+ /HPF (Negative) 03/16/21 Unknown Urine Mucus Few /HPF 03/16/21 Unknown Coronavirus (PCR) Positive (Negative) A 03/17/21 09:10 Microbiology: Microbiology 03/16/21 Unknown Urine,Clean Catch Urine Culture - Final 03/16/21 17:14 Peripheral/Venous Blood Culture - Preliminary NO GROWTH AFTER 48 HOURS 03/16/21 16:57 Peripheral/Venous Blood Culture - Preliminary NO GROWTH AFTER 48 HOURS [place]/IV: Voiding Method Bedside Commode Active Medications - Current Medications Current Medications: Generic Name Dose Route Start Last Admin Trade Name Freq PRN Reason Stop Dose Admin Acetaminophen 650 mg 03/16/21 18:46 03/17/21 22:27 Acetaminophen 325 Mg Tab PO 650 mg Q4H PRN Administration Pain MILD(1-3)/Fever >100.5/CUEVA Albuterol 2.5 mg 03/16/21 18:46 Albuterol 2.5 Mg/3 Ml Nebu IH Q4HRT PRN Shortness Of Breath Alprazolam 0.25 mg 03/17/21 21:47 03/17/21 22:27 Alprazolam 0.25 Mg Tab PO 0.25 mg Q8H PRN Administration Anxiety Ascorbic Acid 500 mg 03/16/21 22:00 03/19/21 09:14 Ascorbic Acid 500 Mg Tab PO 500 mg BID WALLY Administration Bisacodyl 10 mg 03/19/21 13:12 Bisacodyl 5 Mg Tab PO QDAY PRN Constipation Cholecalciferol 1,000 unit 03/19/21 10:00 03/19/21 13:18 Cholecalciferol (Vit D3) 1000 Unit (25 Mcg) Tab PO 1,000 unit QDAY WALLY Administration Enoxaparin Sodium 130 mg 03/17/21 12:00 03/19/21 09:14 Enoxaparin 150 Mg/1 Ml Inj SUB-Q 130 mg Q12HR WALLY Administration Furosemide 40 mg 03/17/21 12:00 03/19/21 09:14 Furosemide 40 Mg/4 Ml Inj IV 40 mg QDAY WALLY Administration Hydromorphone HCl 0.5 mg 03/16/21 18:46 Hydromorphone 1 Mg/1 Ml Inj IV Q24H PRN Pain , Severe (7-10) REMDESIVIR 100 mg/ Sodium 250 mls @ 500 mls/hr 03/18/21 21:00 03/18/21 22:08 Chloride IV 03/21/21 21:29 500 mls/hr Q24HR@2100 WALLY Administration TOCILIZUMAB 800 mg/ Sodium 140 mls @ 120 mls/hr 03/17/21 13:20 Chloride IV 03/17/21 14:29 ONCE ONE Magnesium Hydroxide 30 ml 03/18/21 16:19 03/19/21 06:17 Magnesium Hydroxide (Mom) Oral Liqd Udc PO 30 ml QDAY PRN Administration Constipation Methylprednisolone Sodium Succinate 80 mg 03/17/21 11:22 03/19/21 13:18 Methylprednisolone Sod Succinate 40 Mg/1 Ml Inj IV 80 mg Q8HR WALLY Administration Ondansetron HCl 4 mg 03/16/21 18:46 Ondansetron 4 Mg/2 Ml Inj IV Q8H PRN Nausea And Vomiting Oxycodone/Acetaminophen 1 tab 03/16/21 18:46 Oxycodone /Acetaminophen 5-325mg Tab PO Q12H PRN Pain, Moderate (4-6) Sodium Chloride 10 ml 03/16/21 22:00 03/18/21 22:11 Sodium Chloride 0.9% 10 Ml Flush Syringe IV 10 ml BID WALLY Administration Sodium Chloride 10 ml 03/16/21 18:46 03/18/21 06:24 Sodium Chloride 0.9% 10 Ml Flush Syringe IV 10 ml PRN PRN Administration LINE FLUSH Sodium Chloride 50 ml 03/18/21 21:00 03/18/21 22:11 Sodium Chloride 0.9% 50 Ml Ivpb IV 03/21/21 21:01 50 ml Q24HR@2100 WALLY Administration Zinc Sulfate 220 mg 03/16/21 22:00 03/19/21 09:14 Zinc Sulfate 220 Mg Cap PO 220 mg BID WALLY Administration
--- NOTE | 2021-03-19 14:28 | XRay Report ---
ABDOMEN 1 VIEW INDICATION / CLINICAL INFORMATION: Unspecified abdominal pain. COMPARISON: One view of the chest from 03/16/2021. FINDINGS: TUBES / LINES: None. BOWEL GAS PATTERN: No significant abnormality. FREE AIR / EXTRALUMINAL GAS: None seen. ADDITIONAL FINDINGS: Bilateral pulmonary opacities are again noted. An IUD is in expected position. IMPRESSION: No acute abnormality of the abdomen. Signer Name: Calderon Sellers MD Signed: 03/19/2021 2:24 PM Workstation Name: [id number]
--- NOTE | 2021-03-19 15:11 | Progress Note ---
Assessment and Plan Cultures: SARS CoV2 PCR: Pending 03/16/2021 blood culture: In process A/P: 46-year-old female with morbid obesity, obesity hypoventilation admitted with: #Severe COVID-19 pneumonia: Chest x-ray with bilateral patchy airspace opacities, elevated CRP, normal procalcitonin. CRP 10-->2 #Acute hypoxic respiratory failure: Requiring high flow nasal cannula 40L 100%. #Morbid obesity #Leukopenia: Likely secondary to viral illness, resolved. #Elevated LFTs: Due to COVID-19, resolved. Recs: -continue steroids per pulm -continue remdesivir D2 of 5 -tocilizumab ordered by Dr Concepcion, says "pending", alerted pharm for clarification -prophylactic anticoagulation based on d-dimer per hospital protocol -trend ferritin, d-dimer, CRP every 2-3 days will follow MD [facility] ([facility]) Office [phone] Subjective Date of service: 03/19/21 Principal diagnosis: COVID19 Interval history: Remains on high flow nasal cannula. No Fever. No desaturations. Objective - Exam Narrative Exam: Physical exam deferred to minimize COVID-19 transmission during pandemic. - Constitutional Vitals: Vital Signs Temp Pulse Resp BP Pulse Ox 97.9 F 103 H 20 131/87 95 03/19/21 12:00 03/19/21 12:00 03/19/21 12:00 03/19/21 12:00 03/19/21 13:21 Temperature -Last 24 Hours Temperature 97.9 F Temperature 97.6 F Temperature 97.5 F Temperature 97.8 F - Labs CBC & Chem 7: 03/18/21 05:55 03/19/21 07:42 Labs: Abnormal lab results 03/19/21 03/19/21 03/19/21 Range/Units 07:42 08:06 08:06 D-Dimer 581.09 H (0-234) ng/mlDDU Sodium 136 L (137-145) mmol/L Chloride 94.1 L (98-107) mmol/L BUN 21 H (7-17) mg/dL Glucose 172 H (65-100) mg/dL Calcium 8.1 L (8.4-10.2) mg/dL Lactate Dehydrogenase 659 H (91-180) units/L C-Reactive Protein 2.00 H (0.00-1.30) mg/dL Albumin 2.9 L (3.9-5) g/dL
[2021-03-19] MEDS ORDERED: methylPREDNISolone Sod Succinate 40 MG/1 ML INJ IV SCH (16:07)
--- NOTE | 2021-03-19 16:11 | Progress Note ---
Assessment and Plan 46 y/o female with acute respiratory failure secondary to COVID pneumonia. 1. Increased steroids to 125q8 2. Prone if able 3. Remdesiver and Actemra 4. Monitor fluid balance and watch renal function 5. Guarded Prognosis. Subjective Date of service: 03/19/21 Principal diagnosis: COVID19 Interval history: No acute events. Still on HFNC at 95% Objective Vital Signs - 12hr 03/19/21 03/19/21 03/19/21 05:25 05:26 10:00 Temperature 97.6 F Pulse Rate 102 H Respiratory 22 Rate Blood Pressure 134/72 [Right] O2 Sat by Pulse 92 97 Oximetry 03/19/21 03/19/21 12:00 13:21 Temperature 97.9 F Pulse Rate 103 H Respiratory 20 Rate Blood Pressure 131/87 [Right] O2 Sat by Pulse 91 95 Oximetry Constitutional: other (mild distress) Eyes: non-icteric ENT: oropharynx moist Neck: supple Effort: normal Ascultation: Bilateral: diminished breath sounds Cardiovascular: regular rate and rhythm Gastrointestinal: normoactive bowel sounds, soft, non-tender, non-distended, other (obese) Integumentary: normal Extremities: no cyanosis Neurologic: normal mental status, non-focal exam CBC and BMP: 03/18/21 05:55 03/19/21 07:42 ABG, PT/INR, D-dimer: ABG ABG pH 7.457 (7.320-7.450) H 03/17/21 08:39 POC ABG pCO2 42.4 mmHg (32.0-48.0) 03/17/21 08:39 POC ABG pO2 57.4 mmHg (83-108) L 03/17/21 08:39 POC ABG HCO3 29.3 03/17/21 08:39 ABG O2 Saturation 89.3 (0-100) 03/17/21 08:39 PT/INR, D-dimer PT 13.0 Sec. (12.2-14.9) 03/16/21 16:57 INR 0.93 (0.87-1.13) 03/16/21 16:57 D-Dimer 581.09 ng/mlDDU (0-234) H 03/19/21 08:06 Abnormal lab findings: Abnormal Labs 03/16/21 03/16/21 03/16/21 16:57 16:57 16:57 WBC RBC 5.04 H MCV 72 L MCH 23 L RDW 19.0 H [place] % (Auto) 8.5 H Lymph # (Auto) 0.8 L Seg Neutrophils % 74.6 H D-Dimer 977.31 H ABG pH POC ABG pO2 ABG Hemoglobin ABG Oxyhemoglobin ABG Sodium ABG Glucose VBG pH Carboxyhemoglobin Sodium 133 L Chloride 92.0 L Carbon Dioxide BUN Glucose 131 H Lactic Acid Calcium AST 145 H ALT 57 H Lactate Dehydrogenase C-Reactive Protein Total Protein 8.7 H Albumin 3.5 L Arterial Blood Glucose Arterial Blood Ionized Calcium Coronavirus (PCR) 03/16/21 03/16/21 03/16/21 16:57 16:57 17:12 WBC RBC MCV MCH RDW [place] % (Auto) Lymph # (Auto) Seg Neutrophils % D-Dimer ABG pH POC ABG pO2 ABG Hemoglobin ABG Oxyhemoglobin ABG Sodium ABG Glucose VBG pH 7.430 H Carboxyhemoglobin Sodium Chloride Carbon Dioxide BUN Glucose Lactic Acid 2.40 H* Calcium AST ALT Lactate Dehydrogenase 944 H C-Reactive Protein 10.60 H Total Protein Albumin Arterial Blood Glucose Arterial Blood Ionized Calcium Coronavirus (PCR) 03/17/21 03/17/21 03/17/21 04:42 04:42 08:39 WBC 4.3 L RBC MCV 72 L MCH 23 L RDW 18.6 H [place] % (Auto) Lymph # (Auto) 0.6 L Seg Neutrophils % 80.6 H D-Dimer ABG pH 7.457 H POC ABG pO2 57.4 L ABG Hemoglobin 11.6 L ABG Oxyhemoglobin 88.7 L ABG Sodium 132.6 L ABG Glucose 272 H VBG pH Carboxyhemoglobin 0.4 L Sodium Chloride 97.6 L Carbon Dioxide BUN Glucose 269 H Lactic Acid Calcium 8.3 L AST 106 H ALT Lactate Dehydrogenase C-Reactive Protein Total Protein Albumin 3.2 L Arterial Blood Glucose 272 H Arterial Blood Ionized Calcium 4.4 L Coronavirus (PCR) 03/17/21 03/17/21 03/18/21 09:10 14:20 05:55 WBC RBC MCV 72 L MCH 23 L RDW 18.5 H [place] % (Auto) Lymph # (Auto) Seg Neutrophils % D-Dimer ABG pH POC ABG pO2 ABG Hemoglobin ABG Oxyhemoglobin ABG Sodium ABG Glucose VBG pH Carboxyhemoglobin Sodium Chloride 97.3 L Carbon Dioxide BUN Glucose 234 H Lactic Acid Calcium AST 87 H ALT Lactate Dehydrogenase C-Reactive Protein Total Protein Albumin 3.0 L Arterial Blood Glucose Arterial Blood Ionized Calcium Coronavirus (PCR) Positive A 03/18/21 03/19/21 03/19/21 05:55 07:42 08:06 WBC RBC MCV MCH RDW [place] % (Auto) Lymph # (Auto) Seg Neutrophils % D-Dimer ABG pH POC ABG pO2 ABG Hemoglobin ABG Oxyhemoglobin ABG Sodium ABG Glucose VBG pH Carboxyhemoglobin Sodium 136 L Chloride 97.5 L 94.1 L Carbon Dioxide 33 H BUN 18 H 21 H Glucose 237 H 172 H Lactic Acid Calcium 8.2 L 8.1 L AST 60 H ALT Lactate Dehydrogenase 659 H C-Reactive Protein 2.00 H Total Protein Albumin 3.0 L 2.9 L Arterial Blood Glucose Arterial Blood Ionized Calcium Coronavirus (PCR) 03/19/21 08:06 WBC RBC MCV MCH RDW [place] % (Auto) Lymph # (Auto) Seg Neutrophils % D-Dimer 581.09 H ABG pH POC ABG pO2 ABG Hemoglobin ABG Oxyhemoglobin ABG Sodium ABG Glucose VBG pH Carboxyhemoglobin Sodium Chloride Carbon Dioxide BUN Glucose Lactic Acid Calcium AST ALT Lactate Dehydrogenase C-Reactive Protein Total Protein Albumin Arterial Blood Glucose Arterial Blood Ionized Calcium Coronavirus (PCR)
[2021-03-19] MEDS: SODIUM CHLORIDE 0.9% 50 ML IVPB IV SCH (21:05)
[2021-03-19] MEDS: methylPREDNISolone Sod Succinate 125 MG/2 ML INJ IV SCH (21:06)
[2021-03-19] MEDS: REMDESIVIR 100 MG in SODIUM CHLORIDE 0.9% 250ML 250 ML IV SCH (22:29)
[2021-03-20] MEDS: methylPREDNISolone Sod Succinate 125 MG/2 ML INJ IV SCH ×3 (06:17→21:50)
--- NOTE | 2021-03-20 09:33 | Progress Note ---
Assessment and Plan Assessment and plan: 46 YO Female with Obesity Hypoventilation Syndrome presents ED for evaluation. Patient reports "I cannot breathe, my head hurts". Patient states that she has experienced fever, generalized weakness, fatigue, malaise, dry cough, headache, diminished sense of smell, diminished sense of taste over the past 5 days with persistent and worsening symptoms over the same timeframe. Patient transported to [facility] via private vehicle for further care and evaluation of the aforementioned symptoms. The patient was seen and evaluated in the emergency department. All lab and imaging studies reviewed. The patient was found to be febrile with a temperature of 104 F as well as a pulse oximetry of 45% on room air which is consistent with acute hypoxemic respiratory failure. Patient was placed on supplemental oxygen without significant improvement in symptoms and was subsequently placed on high flow supplemental oxygen with mild improvement in symptoms. Chest x-ray revealed bilateral pneumonia. Patient admitted to medical floor and initiated on pneumonia as well as coronavirus protocols. Pulmonary team consulted in ED. Nephrology team consulted in ED. Patient denies chest pain, skin rash, recent ill contacts unilateral leg swelling, calf pain prolonged travel/immobility, individual/family history of DVT/PE/bleeding/blood clotting disorders. No prior admission for review. No medication listed at time of admission for reconciliation. Advanced care planning conducted in ED. Patient is not vaccinated against COVID-19. 03/17: Patient still severely hypoxic she is unvaccinated. ID recommended that she is lies prone as much as she can, I will also adjusted steroids for higher dose for better management. I also added some Lasix. Pulmonary input is noted will await ID input as patient will likely need remdesivir. Will monitor renal function. Continue monitoring inflammatory markers. Condition guarded discussed extensively with the patient critical care time 35 minutes 03/18/21 Patient is seen and examined Labs and medication reviewed Patient complained of less shortness of breath. No coughing. But patient is on high flow 40 L with 100% FiO2. O2 sat 94%. Continue current management. Solu- Medrol 80 mg IV every 8 hours remdesivir. Vitamin C, vitamin D and zinc and Tocilizumab. Wean oxygen slowly as tolerated. Infectious disease and pulmonary follow-up. Follow Covid inflammatory marker. 03/19: Continue supportive care. Continue steroid therapy. Pulmonary and ID input noted. Considering constipation will start the patient on some antibiotics and scheduled stool softeners. We will add some Lasix for better control of fluid management to help with oxygenation. Patient unfortunately still in guarded prognosis considering morbid obesity and COVID-19 in addition with severe hypoxia. 03/20/21: Continue supportive care. Pulmonary and ID input noted. Patient had bowel movement; we will continue scheduled stool softeners. Escalate steroids to high-dose 125 mg every 6hr, begin Actemra and remdesivir, Lasix twice daily per pulmonology recommendations. Remains on high flow nasal cannula at 40 L/min / 90% FiO2. De-escalate as patient tolerates. Patient prognosis still remains guarded given risk factor of morbid obesity and unvaccinated status. (1) Acute hypoxemic respiratory failure Current Visit: Yes Status: Acute Plan to address problem: Chest x-ray, supplemental oxygen, pulse oximetry, nebulizer therapy, high flow supplemental oxygen at this time, if patient is unable to maintain pulse oximetry will consider noninvasive positive pressure ventilation with BiPAP. Pulmonary team consulted. (2) 2019-nCoV infection Current Visit: Yes Status: Acute Plan to address problem: Coronavirus protocol: Contact precaution, isolation precautions, IV antibiotic therapy, IV steroid therapy, vitamin C therapy, vitamin D therapy, zinc therapy, HFNC oxygen, prophylactic anticoagulation (3) Pneumonia Current Visit: Yes Status: Acute Plan to address problem: Pneumonia protocol: Chest x-ray, CBC, CMP, supplemental oxygen, pulse oximetry, nebulizer therapy, prone positioning while in bed, pulmonary toilet, (4) Obesity hypoventilation syndrome Current Visit: Yes Status: Acute Plan to address problem: Balanced diet, increase physical activity discharge, outpatient pulmonary follow-up for sleep study, outpatient bariatric surgery follow-up. (5) constipation (6) DVT prophylaxis Current Visit: Yes Status: Acute Plan to address problem: SCD to bilateral lower extremities while in bed, prophylactic anticoagulation (7) Advance care planning Current Visit: Yes Status: Acute Plan to address problem: Disease education conducted, care plan discussed, diagnosis discussed, prognosis discussed, patient is full code, patient knowledges understanding and agreement with care plan, +30 minutes. (8) 2019 novel coronavirus vaccination not done Current Visit: Yes Status: Acute Plan to address problem: Pt counseled. History Interval history: No acute complaints on encounter. Patient states that she had bowel movement after enema was administered yesterday. She is anxious about when she can go home. Explained to patient at length about the nature of her current medical condition and her current oxygen requirements. We discussed the need for continued physical therapy and self proning and will attempt to decrease her o xygen requirements on daily basis. All questions were answered to the patient's satisfaction. Hospitalist Physical - Physical exam Narrative exam: General appearance: Present: mild distress, obese, on high flow - EENT Eyes: Present: PERRL ENT: hearing intact, clear oral mucosa - Neck Neck: Present: supple, normal ROM - Respiratory Respiratory effort: labored, accessory muscle use, stridor Respiratory: bilateral: diminished, rhonchi - Cardiovascular Heart Sounds: Present: S1 & S2. Absent: rub, click - Extremities Extremities: pulses symmetrical, No edema Peripheral Pulses: within normal limits - Abdominal General gastrointestinal: Present: soft, non-tender, non-distended, normal bowel sounds Female genitourinary: Present: normal - Integumentary Integumentary: Present: clear, warm, dry - Musculoskeletal Musculoskeletal: gait normal, strength equal bilaterally - Psychiatric Psychiatric: appropriate mood/affect, intact judgment & insight - Neurologic Neurologic: CNII-XII intact, moves all extremities - Constitutional Vitals: Temp Pulse Resp BP Pulse Ox 97.6 F 99 H 19 153/102 94 03/19/21 21:37 03/19/21 21:37 03/19/21 22:00 03/19/21 21:37 03/20/21 02:00 General appearance: Present: mild distress, obese Results - Labs CBC & Chem 7: 03/18/21 05:55 03/20/21 08:33 Labs: Laboratory Last Values WBC 8.5 K/mm3 (4.5-11.0) 03/18/21 05:55 RBC 4.59 M/mm3 (3.65-5.03) 03/18/21 05:55 Hgb 10.4 gm/dl (10.1-14.3) 03/18/21 05:55 Hct 33.0 % (30.3-42.9) 03/18/21 05:55 MCV 72 fl (79-97) L 03/18/21 05:55 MCH 23 pg (28-32) L 03/18/21 05:55 MCHC 31 % (30-34) 03/18/21 05:55 RDW 18.5 % (13.2-15.2) H 03/18/21 05:55 Plt Count 279 K/mm3 (140-440) 03/18/21 05:55 Lymph % (Auto) 14.4 % (13.4-35.0) 03/17/21 04:42 [place] % (Auto) 4.9 % (0.0-7.3) 03/17/21 04:42 Eos % (Auto) 0.0 % (0.0-4.3) 03/17/21 04:42 Baso % (Auto) 0.1 % (0.0-1.8) 03/17/21 04:42 Lymph # (Auto) 0.6 K/mm3 (1.2-5.4) L 03/17/21 04:42 [place] # (Auto) 0.2 K/mm3 (0.0-0.8) 03/17/21 04:42 Eos # (Auto) 0.0 K/mm3 (0.0-0.4) 03/17/21 04:42 Baso # (Auto) 0.0 K/mm3 (0.0-0.1) 03/17/21 04:42 Seg Neutrophils % 80.6 % (40.0-70.0) H 03/17/21 04:42 Seg Neutrophils # 3.5 K/mm3 (1.8-7.7) 03/17/21 04:42 PT 13.0 Sec. (12.2-14.9) 03/16/21 16:57 INR 0.93 (0.87-1.13) 03/16/21 16:57 D-Dimer 581.09 ng/mlDDU (0-234) H 03/19/21 08:06 ABG pH 7.457 (7.320-7.450) H 03/17/21 08:39 POC ABG pCO2 42.4 mmHg (32.0-48.0) 03/17/21 08:39 POC ABG pO2 57.4 mmHg (83-108) L 03/17/21 08:39 POC ABG HCO3 29.3 03/17/21 08:39 ABG O2 Saturation 89.3 (0-100) 03/17/21 08:39 POC ABG Base Excess 4.9 03/17/21 08:39 ABG Hemoglobin 11.6 (12.0-17.5) L 03/17/21 08:39 ABG Oxyhemoglobin 88.7 (94-98) L 03/17/21 08:39 ABG Methemoglobin 0.3 (0.0-1.5) 03/17/21 08:39 ABG Sodium 132.6 mmol/L (136.0-145.0) L 03/17/21 08:39 ABG Potassium 4.1 mmol/L (3.40-4.50) 03/17/21 08:39 ABG Chloride 98.0 mmol/L (98-107) 03/17/21 08:39 ABG Glucose 272 mg/dL (65-95) H 03/17/21 08:39 VBG pH 7.430 (7.320-7.420) H 03/16/21 16:57 Carboxyhemoglobin 0.4 (0.5-1.5) L 03/17/21 08:39 FiO2 % 100.0 03/17/21 08:39 Sodium 136 mmol/L (137-145) L 03/19/21 07:42 Potassium 4.2 mmol/L (3.6-5.0) 03/19/21 07:42 Chloride 94.1 mmol/L (98-107) L 03/19/21 07:42 Carbon Dioxide 30 mmol/L (22-30) 03/19/21 07:42 Anion Gap 16 mmol/L 03/19/21 07:42 BUN 21 mg/dL (7-17) H 03/19/21 07:42 Creatinine 0.9 mg/dL (0.6-1.2) 03/19/21 07:42 Estimated GFR > 60 ml/min 03/19/21 07:42 BUN/Creatinine Ratio 23 % 03/19/21 07:42 Glucose 172 mg/dL (65-100) H 03/19/21 07:42 Lactic Acid 0.90 mmol/L (0.7-2.0) 03/16/21 19:48 Calcium 8.1 mg/dL (8.4-10.2) L 03/19/21 07:42 Ferritin 65.2 ng/mL (10.0-200.0) 03/19/21 08:06 Total Bilirubin 0.30 mg/dL (0.1-1.2) 03/19/21 07:42 AST 32 units/L (5-40) 03/19/21 07:42 ALT 37 units/L (7-56) 03/19/21 07:42 Alkaline Phosphatase 58 units/L (35-129) 03/19/21 07:42 Lactate Dehydrogenase 659 units/L (91-180) H 03/19/21 08:06 C-Reactive Protein 2.00 mg/dL (0.00-1.30) H 03/19/21 08:06 NT-Pro-B Natriuret Pep 113.8 pg/mL (0-450) 03/16/21 17:12 Total Protein 6.9 g/dL (6.3-8.2) 03/19/21 07:42 Albumin 2.9 g/dL (3.9-5) L 03/19/21 07:42 Albumin/Globulin Ratio 0.7 % 03/19/21 07:42 Procalcitonin < 0.05 ng/mL (<0.15) 03/16/21 17:12 HCG, Qual Negative (Negative) 03/16/21 16:57 Arterial Blood Glucose 272 mg/dL (65-95) H 03/17/21 08:39 Arterial Blood Ionized Calcium 4.4 mg/dL (4.6-5.3) L 03/17/21 08:39 Urine Color Yellow (Yellow) 03/16/21 Unknown Urine Turbidity Clear (Clear) 03/16/21 Unknown Urine pH 6.0 (5.0-7.0) 03/16/21 Unknown Ur Specific [place] 1.014 (1.003-1.030) 03/16/21 Unknown Urine Protein 100 mg/dl mg/dL (Negative) 03/16/21 Unknown Urine Glucose (UA) >=500 mg/dL (Negative) 03/16/21 Unknown Urine Ketones Neg mg/dL (Negative) 03/16/21 Unknown Urine Blood Neg (Negative) 03/16/21 Unknown Urine Nitrite Neg (Negative) 03/16/21 Unknown Urine Bilirubin Neg (Negative) 03/16/21 Unknown Urine Urobilinogen < 2.0 mg/dL (<2.0) 03/16/21 Unknown Ur Leukocyte Esterase Neg (Negative) 03/16/21 Unknown Urine WBC (Auto) 2.0 /HPF (0.0-6.0) 03/16/21 Unknown Urine RBC (Auto) 1.0 /HPF (0.0-6.0) 03/16/21 Unknown U Epithel Cells (Auto) 1.0 /HPF (0-13.0) 03/16/21 Unknown Urine Bacteria (Auto) 1+ /HPF (Negative) 03/16/21 Unknown Urine Mucus Few /HPF 03/16/21 Unknown Coronavirus (PCR) Positive (Negative) A 03/17/21 09:10 Microbiology: Microbiology 03/16/21 17:14 Peripheral/Venous Blood Culture - Preliminary NO GROWTH AFTER 72 HOURS 03/16/21 16:57 Peripheral/Venous Blood Culture - Preliminary NO GROWTH AFTER 72 HOURS 03/16/21 Unknown Urine,Clean Catch Urine Culture - Final [place]/IV: Voiding Method Bedside Commode Active Medications - Current Medications Current Medications: Generic Name Dose Route Start Last Admin Trade Name Freq PRN Reason Stop Dose Admin Acetaminophen 650 mg 03/16/21 18:46 03/17/21 22:27 Acetaminophen 325 Mg Tab PO 650 mg Q4H PRN Administration Pain MILD(1-3)/Fever >100.5/CUEVA Albuterol 2.5 mg 03/16/21 18:46 Albuterol 2.5 Mg/3 Ml Nebu IH Q4HRT PRN Shortness Of Breath Alprazolam 0.25 mg 03/17/21 21:47 03/17/21 22:27 Alprazolam 0.25 Mg Tab PO 0.25 mg Q8H PRN Administration Anxiety Ascorbic Acid 500 mg 03/16/21 22:00 03/19/21 21:06 Ascorbic Acid 500 Mg Tab PO 500 mg BID WALLY Administration Bisacodyl 10 mg 03/19/21 13:12 Bisacodyl 5 Mg Tab PO QDAY PRN Constipation Cholecalciferol 1,000 unit 03/19/21 10:00 03/19/21 13:18 Cholecalciferol (Vit D3) 1000 Unit (25 Mcg) Tab PO 1,000 unit QDAY WALLY Administration Enoxaparin Sodium 130 mg 03/17/21 12:00 03/19/21 21:05 Enoxaparin 150 Mg/1 Ml Inj SUB-Q 130 mg Q12HR WALLY Administration Furosemide 40 mg 03/17/21 12:00 03/19/21 09:14 Furosemide 40 Mg/4 Ml Inj IV 40 mg QDAY WALLY Administration Hydromorphone HCl 0.5 mg 03/16/21 18:46 Hydromorphone 1 Mg/1 Ml Inj IV Q24H PRN Pain , Severe (7-10) REMDESIVIR 100 mg/ Sodium 250 mls @ 500 mls/hr 03/18/21 21:00 03/19/21 22:29 Chloride IV 03/21/21 21:29 500 mls/hr Q24HR@2100 WALLY Administration TOCILIZUMAB 800 mg/ Sodium 140 mls @ 120 mls/hr 03/17/21 13:20 Chloride IV 03/17/21 14:29 ONCE ONE Magnesium Hydroxide 30 ml 03/18/21 16:19 03/19/21 06:17 Magnesium Hydroxide (Mom) Oral Liqd Udc PO 30 ml QDAY PRN Administration Constipation Methylprednisolone Sodium Succinate 125 mg 03/19/21 22:00 03/20/21 06:17 Methylprednisolone Sod Succinate 125 Mg/2 Ml Inj IV 125 mg Q8HR WALLY Administration Ondansetron HCl 4 mg 03/16/21 18:46 Ondansetron 4 Mg/2 Ml Inj IV Q8H PRN Nausea And Vomiting Oxycodone/Acetaminophen 1 tab 03/16/21 18:46 Oxycodone /Acetaminophen 5-325mg Tab PO Q12H PRN Pain, Moderate (4-6) Sodium Chloride 10 ml 03/16/21 22:00 03/20/21 06:18 Sodium Chloride 0.9% 10 Ml Flush Syringe IV 10 ml BID WALLY Administration Sodium Chloride 10 ml 03/16/21 18:46 03/18/21 06:24 Sodium Chloride 0.9% 10 Ml Flush Syringe IV 10 ml PRN PRN Administration LINE FLUSH Sodium Chloride 50 ml 03/18/21 21:00 03/19/21 21:05 Sodium Chloride 0.9% 50 Ml Ivpb IV 03/21/21 21:01 50 ml Q24HR@2100 WALLY Administration Zinc Sulfate 220 mg 03/16/21 22:00 03/19/21 21:06 Zinc Sulfate 220 Mg Cap PO 220 mg BID WALLY Administration
[2021-03-20] MEDS: ASCORBIC ACID 500 MG TAB PO SCH ×2 (09:46→21:49)
[2021-03-20] MEDS: FUROSEMIDE 40 MG/4 ML INJ IV SCH (09:46)
[2021-03-20] MEDS: CHOLECALCIFEROL (VIT D3) 1000 UNIT (25 mcg) TAB PO SCH (09:46)
[2021-03-20] MEDS: ZINC SULFATE 220 MG CAP PO SCH ×2 (09:46→21:49)
--- NOTE | 2021-03-20 10:25 | Progress Note ---
Assessment and Plan 46 y/o female with acute respiratory failure secondary to COVID pneumonia. 03/20/21: Wean FiO2 for sats >88%. Prone if able. May need to consider BID lasix to achieve net negative fluid balance. Remdesivir. Guarded prognosis. Continue High dose steroids for now. 1. Increased steroids to 125q8 2. Prone if able 3. Remdesiver and Actemra 4. Monitor fluid balance and watch renal function 5. Guarded Prognosis. Subjective Date of service: 03/20/21 Principal diagnosis: COVID19 Interval history: Now down to 90%. Increased steroids on yesterday. Objective Vital Signs - 12hr 03/20/21 03/20/21 02:00 08:45 O2 Sat by Pulse 94 92 Oximetry Constitutional: other (mild distress) Eyes: non-icteric ENT: oropharynx moist Neck: supple Effort: normal Ascultation: Bilateral: diminished breath sounds Cardiovascular: regular rate and rhythm Gastrointestinal: normoactive bowel sounds, soft, non-tender, non-distended, other (obese) Integumentary: normal Extremities: no cyanosis Neurologic: normal mental status, non-focal exam CBC and BMP: 03/18/21 05:55 03/19/21 07:42 ABG, PT/INR, D-dimer: ABG ABG pH 7.457 (7.320-7.450) H 03/17/21 08:39 POC ABG pCO2 42.4 mmHg (32.0-48.0) 03/17/21 08:39 POC ABG pO2 57.4 mmHg (83-108) L 03/17/21 08:39 POC ABG HCO3 29.3 03/17/21 08:39 ABG O2 Saturation 89.3 (0-100) 03/17/21 08:39 PT/INR, D-dimer PT 13.0 Sec. (12.2-14.9) 03/16/21 16:57 INR 0.93 (0.87-1.13) 03/16/21 16:57 D-Dimer 581.09 ng/mlDDU (0-234) H 03/19/21 08:06 Abnormal lab findings: Abnormal Labs 03/16/21 03/16/21 03/16/21 16:57 16:57 16:57 WBC RBC 5.04 H MCV 72 L MCH 23 L RDW 19.0 H [place] % (Auto) 8.5 H Lymph # (Auto) 0.8 L Seg Neutrophils % 74.6 H D-Dimer 977.31 H ABG pH POC ABG pO2 ABG Hemoglobin ABG Oxyhemoglobin ABG Sodium ABG Glucose VBG pH Carboxyhemoglobin Sodium 133 L Chloride 92.0 L Carbon Dioxide BUN Glucose 131 H Lactic Acid Calcium AST 145 H ALT 57 H Lactate Dehydrogenase C-Reactive Protein Total Protein 8.7 H Albumin 3.5 L Arterial Blood Glucose Arterial Blood Ionized Calcium Coronavirus (PCR) 03/16/21 03/16/21 03/16/21 16:57 16:57 17:12 WBC RBC MCV MCH RDW [place] % (Auto) Lymph # (Auto) Seg Neutrophils % D-Dimer ABG pH POC ABG pO2 ABG Hemoglobin ABG Oxyhemoglobin ABG Sodium ABG Glucose VBG pH 7.430 H Carboxyhemoglobin Sodium Chloride Carbon Dioxide BUN Glucose Lactic Acid 2.40 H* Calcium AST ALT Lactate Dehydrogenase 944 H C-Reactive Protein 10.60 H Total Protein Albumin Arterial Blood Glucose Arterial Blood Ionized Calcium Coronavirus (PCR) 03/17/21 03/17/21 03/17/21 04:42 04:42 08:39 WBC 4.3 L RBC MCV 72 L MCH 23 L RDW 18.6 H [place] % (Auto) Lymph # (Auto) 0.6 L Seg Neutrophils % 80.6 H D-Dimer ABG pH 7.457 H POC ABG pO2 57.4 L ABG Hemoglobin 11.6 L ABG Oxyhemoglobin 88.7 L ABG Sodium 132.6 L ABG Glucose 272 H VBG pH Carboxyhemoglobin 0.4 L Sodium Chloride 97.6 L Carbon Dioxide BUN Glucose 269 H Lactic Acid Calcium 8.3 L AST 106 H ALT Lactate Dehydrogenase C-Reactive Protein Total Protein Albumin 3.2 L Arterial Blood Glucose 272 H Arterial Blood Ionized Calcium 4.4 L Coronavirus (PCR) 03/17/21 03/17/21 03/18/21 09:10 14:20 05:55 WBC RBC MCV 72 L MCH 23 L RDW 18.5 H [place] % (Auto) Lymph # (Auto) Seg Neutrophils % D-Dimer ABG pH POC ABG pO2 ABG Hemoglobin ABG Oxyhemoglobin ABG Sodium ABG Glucose VBG pH Carboxyhemoglobin Sodium Chloride 97.3 L Carbon Dioxide BUN Glucose 234 H Lactic Acid Calcium AST 87 H ALT Lactate Dehydrogenase C-Reactive Protein Total Protein Albumin 3.0 L Arterial Blood Glucose Arterial Blood Ionized Calcium Coronavirus (PCR) Positive A 03/18/21 03/19/21 03/19/21 05:55 07:42 08:06 WBC RBC MCV MCH RDW [place] % (Auto) Lymph # (Auto) Seg Neutrophils % D-Dimer ABG pH POC ABG pO2 ABG Hemoglobin ABG Oxyhemoglobin ABG Sodium ABG Glucose VBG pH Carboxyhemoglobin Sodium 136 L Chloride 97.5 L 94.1 L Carbon Dioxide 33 H BUN 18 H 21 H Glucose 237 H 172 H Lactic Acid Calcium 8.2 L 8.1 L AST 60 H ALT Lactate Dehydrogenase 659 H C-Reactive Protein 2.00 H Total Protein Albumin 3.0 L 2.9 L Arterial Blood Glucose Arterial Blood Ionized Calcium Coronavirus (PCR) 03/19/21 08:06 WBC RBC MCV MCH RDW [place] % (Auto) Lymph # (Auto) Seg Neutrophils % D-Dimer 581.09 H ABG pH POC ABG pO2 ABG Hemoglobin ABG Oxyhemoglobin ABG Sodium ABG Glucose VBG pH Carboxyhemoglobin Sodium Chloride Carbon Dioxide BUN Glucose Lactic Acid Calcium AST ALT Lactate Dehydrogenase C-Reactive Protein Total Protein Albumin Arterial Blood Glucose Arterial Blood Ionized Calcium Coronavirus (PCR)
[2021-03-20 10:26] LABS: Alanine Aminotransferase 36 units/L (7-56); Albumin 3.4 g/dL (3.9-5); BUN/Creatinine Ratio 25; Blood Urea Nitrogen 20 mg/dL (7-17); Calcium 8.6 mg/dL (8.4-10.2); Hemolysis Index 0
[2021-03-20] MEDS: ENOXAPARIN 150 MG/1 ML INJ SUB-Q SCH ×2 (10:49→21:49)
[2021-03-20] MEDS ORDERED: TOCILIZUMAB 810 MG in SODIUM CHLORIDE 0.9% 100 ML IV NR (16:00)
--- NOTE | 2021-03-20 16:12 | Progress Note ---
Assessment and Plan Cultures: SARS CoV2 PCR: Pending 03/16/2021 blood culture: In process A/P: 46-year-old female with morbid obesity, obesity hypoventilation admitted with: #Severe COVID-19 pneumonia: Chest x-ray with bilateral patchy airspace opacities, elevated CRP, normal procalcitonin. CRP 10-->2 #Acute hypoxic respiratory failure: remains on HFNC 40L 90%. #Morbid obesity #Leukopenia: Likely secondary to viral illness, resolved. #Elevated LFTs: Due to COVID-19, resolved. Recs: -continue steroids per pulm -continue remdesivir D3 of 5 -tocilizumab ordered by Dr Concepcion, out of stock -prophylactic anticoagulation based on d-dimer per hospital protocol -trend ferritin, d-dimer, CRP every 2-3 days will follow. Guarded prognosis MD [facility] ([facility]) Office [phone] Subjective Date of service: 03/20/21 Principal diagnosis: COVID19 Interval history: On HFNC 40L 90%, no desaturation. Sats in the 90s. Objective - Exam Narrative Exam: Physical exam deferred to minimize COVID-19 transmission during pandemic. - Constitutional Vitals: Vital Signs Temp Pulse Resp BP Pulse Ox 97.7 F 102 H 18 147/97 94 03/20/21 11:18 03/20/21 11:18 03/20/21 11:18 03/20/21 11:18 03/20/21 13:30 Temperature -Last 24 Hours Temperature 97.7 F Temperature 98.8 F Temperature 97.6 F - Labs CBC & Chem 7: 03/18/21 05:55 03/20/21 08:33 Labs: Abnormal lab results 03/20/21 Range/Units 08:33 Chloride 92.0 L (98-107) mmol/L Carbon Dioxide 36 H (22-30) mmol/L BUN 20 H (7-17) mg/dL Glucose 208 H (65-100) mg/dL Albumin 3.4 L (3.9-5) g/dL
[2021-03-20] MEDS: SODIUM CHLORIDE 0.9% 50 ML IVPB IV SCH (21:47)
[2021-03-20] MEDS: REMDESIVIR 100 MG in SODIUM CHLORIDE 0.9% 250ML 250 ML IV SCH (21:49)
[2021-03-21] MEDS: methylPREDNISolone Sod Succinate 125 MG/2 ML INJ IV SCH ×3 (06:15→21:29)
--- NOTE | 2021-03-21 08:45 | Progress Note ---
Assessment and Plan Cultures: SARS CoV2 PCR: Pending 03/16/2021 blood culture: In process A/P: 46-year-old female with morbid obesity, obesity hypoventilation admitted with: #Severe COVID-19 pneumonia: Chest x-ray with bilateral patchy airspace opacities, elevated CRP, normal procalcitonin. CRP 10-->2 #Acute hypoxic respiratory failure: remains on HFNC 40L 90%. Not better. #Morbid obesity #Leukopenia: Likely secondary to viral illness, resolved. #Elevated LFTs: Due to COVID-19, resolved. Recs: -continue steroids per pulm -continue remdesivir D4 of 5 -completed tocilizumab on 03/20 -prophylactic anticoagulation based on d-dimer per hospital protocol -trend ferritin, d-dimer, CRP every 2-3 days will follow. Guarded prognosis. Close monitor, risk for intubation. MD [facility] ([facility]) Office [phone] Subjective Date of service: 03/21/21 Principal diagnosis: COVID19 Interval history: Patient remains saturating down to 76% on high flow nasal cannula 40 L, 90%. Objective - Exam Narrative Exam: Physical exam deferred to minimize COVID-19 transmission during pandemic. - Constitutional Vitals: Vital Signs Temp Pulse Resp BP Pulse Ox 98.1 F 109 H 18 143/88 93 03/21/21 04:46 03/20/21 16:03 03/21/21 04:46 03/21/21 04:46 03/21/21 05:20 Temperature -Last 24 Hours Temperature 98.1 F Temperature 97.8 F Temperature 97.7 F - Labs CBC & Chem 7: 03/18/21 05:55 03/20/21 08:33 Labs: Abnormal lab results 03/20/21 Range/Units 08:33 Chloride 92.0 L (98-107) mmol/L Carbon Dioxide 36 H (22-30) mmol/L BUN 20 H (7-17) mg/dL Glucose 208 H (65-100) mg/dL Albumin 3.4 L (3.9-5) g/dL
--- NOTE | 2021-03-21 08:59 | Progress Note ---
Assessment and Plan 46 y/o female with acute respiratory failure secondary to COVID pneumonia. 03/21/21: Wean FiO2 for sats >88%. Per I/O negative on yesterday about 500cc's. Would shoot for goal of 1000cc's off. Guarded prognosis. Continue steroids. 03/20/21: Wean FiO2 for sats >88%. Prone if able. May need to consider BID lasix to achieve net negative fluid balance. Remdesivir. Guarded prognosis. Continue High dose steroids for now. 1. Increased steroids to 125q8 2. Prone if able 3. Remdesivir and Actemra 4. Monitor fluid balance and watch renal function 5. Guarded Prognosis. Subjective Date of service: 03/21/21 Principal diagnosis: COVID19 Interval history: Still on HFNC, no weaning attempts documented. Sats stable. Objective Vital Signs - 12hr 03/21/21 03/21/21 04:46 05:20 Temperature 98.1 F Respiratory 18 Rate Blood Pressure 143/88 O2 Sat by Pulse 93 Oximetry Constitutional: other (mild distress) Eyes: non-icteric ENT: oropharynx moist Neck: supple Effort: normal Ascultation: Bilateral: diminished breath sounds Cardiovascular: regular rate and rhythm Gastrointestinal: normoactive bowel sounds, soft, non-tender, non-distended, other (obese) Integumentary: normal Extremities: no cyanosis Neurologic: normal mental status, non-focal exam CBC and BMP: 03/18/21 05:55 03/20/21 08:33 ABG, PT/INR, D-dimer: ABG ABG pH 7.457 (7.320-7.450) H 03/17/21 08:39 POC ABG pCO2 42.4 mmHg (32.0-48.0) 03/17/21 08:39 POC ABG pO2 57.4 mmHg (83-108) L 03/17/21 08:39 POC ABG HCO3 29.3 03/17/21 08:39 ABG O2 Saturation 89.3 (0-100) 03/17/21 08:39 PT/INR, D-dimer PT 13.0 Sec. (12.2-14.9) 03/16/21 16:57 INR 0.93 (0.87-1.13) 03/16/21 16:57 D-Dimer 581.09 ng/mlDDU (0-234) H 03/19/21 08:06 Abnormal lab findings: Abnormal Labs 03/16/21 03/16/21 03/16/21 16:57 16:57 16:57 WBC RBC 5.04 H MCV 72 L MCH 23 L RDW 19.0 H [place] % (Auto) 8.5 H Lymph # (Auto) 0.8 L Seg Neutrophils % 74.6 H D-Dimer 977.31 H ABG pH POC ABG pO2 ABG Hemoglobin ABG Oxyhemoglobin ABG Sodium ABG Glucose VBG pH Carboxyhemoglobin Sodium 133 L Chloride 92.0 L Carbon Dioxide BUN Glucose 131 H Lactic Acid Calcium AST 145 H ALT 57 H Lactate Dehydrogenase C-Reactive Protein Total Protein 8.7 H Albumin 3.5 L Arterial Blood Glucose Arterial Blood Ionized Calcium Coronavirus (PCR) 03/16/21 03/16/21 03/16/21 16:57 16:57 17:12 WBC RBC MCV MCH RDW [place] % (Auto) Lymph # (Auto) Seg Neutrophils % D-Dimer ABG pH POC ABG pO2 ABG Hemoglobin ABG Oxyhemoglobin ABG Sodium ABG Glucose VBG pH 7.430 H Carboxyhemoglobin Sodium Chloride Carbon Dioxide BUN Glucose Lactic Acid 2.40 H* Calcium AST ALT Lactate Dehydrogenase 944 H C-Reactive Protein 10.60 H Total Protein Albumin Arterial Blood Glucose Arterial Blood Ionized Calcium Coronavirus (PCR) 03/17/21 03/17/21 03/17/21 04:42 04:42 08:39 WBC 4.3 L RBC MCV 72 L MCH 23 L RDW 18.6 H [place] % (Auto) Lymph # (Auto) 0.6 L Seg Neutrophils % 80.6 H D-Dimer ABG pH 7.457 H POC ABG pO2 57.4 L ABG Hemoglobin 11.6 L ABG Oxyhemoglobin 88.7 L ABG Sodium 132.6 L ABG Glucose 272 H VBG pH Carboxyhemoglobin 0.4 L Sodium Chloride 97.6 L Carbon Dioxide BUN Glucose 269 H Lactic Acid Calcium 8.3 L AST 106 H ALT Lactate Dehydrogenase C-Reactive Protein Total Protein Albumin 3.2 L Arterial Blood Glucose 272 H Arterial Blood Ionized Calcium 4.4 L Coronavirus (PCR) 03/17/21 03/17/21 03/18/21 09:10 14:20 05:55 WBC RBC MCV 72 L MCH 23 L RDW 18.5 H [place] % (Auto) Lymph # (Auto) Seg Neutrophils % D-Dimer ABG pH POC ABG pO2 ABG Hemoglobin ABG Oxyhemoglobin ABG Sodium ABG Glucose VBG pH Carboxyhemoglobin Sodium Chloride 97.3 L Carbon Dioxide BUN Glucose 234 H Lactic Acid Calcium AST 87 H ALT Lactate Dehydrogenase C-Reactive Protein Total Protein Albumin 3.0 L Arterial Blood Glucose Arterial Blood Ionized Calcium Coronavirus (PCR) Positive A 03/18/21 03/19/21 03/19/21 05:55 07:42 08:06 WBC RBC MCV MCH RDW [place] % (Auto) Lymph # (Auto) Seg Neutrophils % D-Dimer ABG pH POC ABG pO2 ABG Hemoglobin ABG Oxyhemoglobin ABG Sodium ABG Glucose VBG pH Carboxyhemoglobin Sodium 136 L Chloride 97.5 L 94.1 L Carbon Dioxide 33 H BUN 18 H 21 H Glucose 237 H 172 H Lactic Acid Calcium 8.2 L 8.1 L AST 60 H ALT Lactate Dehydrogenase 659 H C-Reactive Protein 2.00 H Total Protein Albumin 3.0 L 2.9 L Arterial Blood Glucose Arterial Blood Ionized Calcium Coronavirus (PCR) 03/19/21 03/20/21 08:06 08:33 WBC RBC MCV MCH RDW [place] % (Auto) Lymph # (Auto) Seg Neutrophils % D-Dimer 581.09 H ABG pH POC ABG pO2 ABG Hemoglobin ABG Oxyhemoglobin ABG Sodium ABG Glucose VBG pH Carboxyhemoglobin Sodium Chloride 92.0 L Carbon Dioxide 36 H BUN 20 H Glucose 208 H Lactic Acid Calcium AST ALT Lactate Dehydrogenase C-Reactive Protein Total Protein Albumin 3.4 L Arterial Blood Glucose Arterial Blood Ionized Calcium Coronavirus (PCR)
--- NOTE | 2021-03-21 09:01 | Progress Note ---
Assessment and Plan Assessment and plan: 46 YO Female with Obesity Hypoventilation Syndrome presents ED for evaluation. Patient reports "I cannot breathe, my head hurts". Patient states that she has experienced fever, generalized weakness, fatigue, malaise, dry cough, headache, diminished sense of smell, diminished sense of taste over the past 5 days with persistent and worsening symptoms over the same timeframe. Patient transported to [facility] via private vehicle for further care and evaluation of the aforementioned symptoms. The patient was seen and evaluated in the emergency department. All lab and imaging studies reviewed. The patient was found to be febrile with a temperature of 104 F as well as a pulse oximetry of 45% on room air which is consistent with acute hypoxemic respiratory failure. Patient was placed on supplemental oxygen without significant improvement in symptoms and was subsequently placed on high flow supplemental oxygen with mild improvement in symptoms. Chest x-ray revealed bilateral pneumonia. Patient admitted to medical floor and initiated on pneumonia as well as coronavirus protocols. Pulmonary team consulted in ED. Nephrology team consulted in ED. Patient denies chest pain, skin rash, recent ill contacts unilateral leg swelling, calf pain prolonged travel/immobility, individual/family history of DVT/PE/bleeding/blood clotting disorders. No prior admission for review. No medication listed at time of admission for reconciliation. Advanced care planning conducted in ED. Patient is not vaccinated against COVID-19. 03/17: Patient still severely hypoxic she is unvaccinated. ID recommended that she is lies prone as much as she can, I will also adjusted steroids for higher dose for better management. I also added some Lasix. Pulmonary input is noted will await ID input as patient will likely need remdesivir. Will monitor renal function. Continue monitoring inflammatory markers. Condition guarded discussed extensively with the patient critical care time 35 minutes 03/18/21 Patient is seen and examined Labs and medication reviewed Patient complained of less shortness of breath. No coughing. But patient is on high flow 40 L with 100% FiO2. O2 sat 94%. Continue current management. Solu- Medrol 80 mg IV every 8 hours remdesivir. Vitamin C, vitamin D and zinc and Tocilizumab. Wean oxygen slowly as tolerated. Infectious disease and pulmonary follow-up. Follow Covid inflammatory marker. 03/19: Continue supportive care. Continue steroid therapy. Pulmonary and ID input noted. Considering constipation will start the patient on some antibiotics and scheduled stool softeners. We will add some Lasix for better control of fluid management to help with oxygenation. Patient unfortunately still in guarded prognosis considering morbid obesity and COVID-19 in addition with severe hypoxia. 03/20/21: Continue supportive care. Pulmonary and ID input noted. Patient had bowel movement; we will continue scheduled stool softeners. Escalate steroids to high-dose 125 mg every 6hr, begin Actemra and remdesivir, Lasix twice daily per pulmonology recommendations. Remains on high flow nasal cannula at 40 L/min / 90% FiO2. De-escalate as patient tolerates. Patient prognosis still remains guarded given risk factor of morbid obesity and unvaccinated status. 03/21/2021: Continue supportive care. HFNC set to 30 l/min/ 70% FIO2. Continue to wean as patient sat tolerate > 88%. (1) Acute hypoxemic respiratory failure Current Visit: Yes Status: Acute Plan to address problem: Chest x-ray, supplemental oxygen, pulse oximetry, nebulizer therapy, high flow supplemental oxygen at this time, if patient is unable to maintain pulse oximetry will consider noninvasive positive pressure ventilation with BiPAP. Pulmonary team consulted. (2) 2019-nCoV infection Current Visit: Yes Status: Acute Plan to address problem: Coronavirus protocol: Contact precaution, isolation precautions, IV antibiotic therapy, IV steroid therapy, vitamin C therapy, vitamin D therapy, zinc therapy, HFNC oxygen, prophylactic anticoagulation (3) Pneumonia Current Visit: Yes Status: Acute Plan to address problem: Pneumonia protocol: Chest x-ray, CBC, CMP, supplemental oxygen, pulse oximetry, nebulizer therapy, prone positioning while in bed, pulmonary toilet, (4) Obesity hypoventilation syndrome Current Visit: Yes Status: Acute Plan to address problem: Balanced diet, increase physical activity discharge, outpatient pulmonary follow-up for sleep study, outpatient bariatric surgery follow-up. (5) constipation (6) DVT prophylaxis Current Visit: Yes Status: Acute Plan to address problem: SCD to bilateral lower extremities while in bed, prophylactic anticoagulation (7) Advance care planning Current Visit: Yes Status: Acute Plan to address problem: Disease education conducted, care plan discussed, diagnosis discussed, prognosis discussed, patient is full code, patient knowledges understanding and agreement with care plan, +30 minutes. (8) 2019 novel coronavirus vaccination not done Current Visit: Yes Status: Acute Plan to address problem: Pt counseled. History Interval history: No overnight events. Patient resting comfortably. High flow nasal cannula now set to 30 L/min/FiO2 70%. Hospitalist Physical - Physical exam Narrative exam: General appearance: Present: mild distress, obese, on high flow - EENT Eyes: Present: PERRL ENT: hearing intact, clear oral mucosa - Neck Neck: Present: supple, normal ROM - Respiratory Respiratory effort: labored, accessory muscle use, stridor Respiratory: bilateral: diminished, rhonchi - Cardiovascular Heart Sounds: Present: S1 & S2. Absent: rub, click - Extremities Extremities: pulses symmetrical, No edema Peripheral Pulses: within normal limits - Abdominal General gastrointestinal: Present: soft, non-tender, non-distended, normal bowel sounds Female genitourinary: Present: normal - Integumentary Integumentary: Present: clear, warm, dry - Musculoskeletal Musculoskeletal: gait normal, strength equal bilaterally - Psychiatric Psychiatric: appropriate mood/affect, intact judgment & insight - Neurologic Neurologic: CNII-XII intact, moves all extremities - Constitutional Vitals: Temp Pulse Resp BP Pulse Ox 98.1 F 109 H 18 143/88 93 03/21/21 04:46 03/20/21 16:03 03/21/21 04:46 03/21/21 04:46 03/21/21 05:20 General appearance: Present: mild distress, obese Results - Labs CBC & Chem 7: 03/18/21 05:55 03/20/21 08:33 Labs: Laboratory Last Values WBC 8.5 K/mm3 (4.5-11.0) 03/18/21 05:55 RBC 4.59 M/mm3 (3.65-5.03) 03/18/21 05:55 Hgb 10.4 gm/dl (10.1-14.3) 03/18/21 05:55 Hct 33.0 % (30.3-42.9) 03/18/21 05:55 MCV 72 fl (79-97) L 03/18/21 05:55 MCH 23 pg (28-32) L 03/18/21 05:55 MCHC 31 % (30-34) 03/18/21 05:55 RDW 18.5 % (13.2-15.2) H 03/18/21 05:55 Plt Count 279 K/mm3 (140-440) 03/18/21 05:55 Lymph % (Auto) 14.4 % (13.4-35.0) 03/17/21 04:42 [place] % (Auto) 4.9 % (0.0-7.3) 03/17/21 04:42 Eos % (Auto) 0.0 % (0.0-4.3) 03/17/21 04:42 Baso % (Auto) 0.1 % (0.0-1.8) 03/17/21 04:42 Lymph # (Auto) 0.6 K/mm3 (1.2-5.4) L 03/17/21 04:42 [place] # (Auto) 0.2 K/mm3 (0.0-0.8) 03/17/21 04:42 Eos # (Auto) 0.0 K/mm3 (0.0-0.4) 03/17/21 04:42 Baso # (Auto) 0.0 K/mm3 (0.0-0.1) 03/17/21 04:42 Seg Neutrophils % 80.6 % (40.0-70.0) H 03/17/21 04:42 Seg Neutrophils # 3.5 K/mm3 (1.8-7.7) 03/17/21 04:42 PT 13.0 Sec. (12.2-14.9) 03/16/21 16:57 INR 0.93 (0.87-1.13) 03/16/21 16:57 D-Dimer 581.09 ng/mlDDU (0-234) H 03/19/21 08:06 ABG pH 7.457 (7.320-7.450) H 03/17/21 08:39 POC ABG pCO2 42.4 mmHg (32.0-48.0) 03/17/21 08:39 POC ABG pO2 57.4 mmHg (83-108) L 03/17/21 08:39 POC ABG HCO3 29.3 03/17/21 08:39 ABG O2 Saturation 89.3 (0-100) 03/17/21 08:39 POC ABG Base Excess 4.9 03/17/21 08:39 ABG Hemoglobin 11.6 (12.0-17.5) L 03/17/21 08:39 ABG Oxyhemoglobin 88.7 (94-98) L 03/17/21 08:39 ABG Methemoglobin 0.3 (0.0-1.5) 03/17/21 08:39 ABG Sodium 132.6 mmol/L (136.0-145.0) L 03/17/21 08:39 ABG Potassium 4.1 mmol/L (3.40-4.50) 03/17/21 08:39 ABG Chloride 98.0 mmol/L (98-107) 03/17/21 08:39 ABG Glucose 272 mg/dL (65-95) H 03/17/21 08:39 VBG pH 7.430 (7.320-7.420) H 03/16/21 16:57 Carboxyhemoglobin 0.4 (0.5-1.5) L 03/17/21 08:39 FiO2 % 100.0 03/17/21 08:39 Sodium 137 mmol/L (137-145) 03/20/21 08:33 Potassium 4.1 mmol/L (3.6-5.0) 03/20/21 08:33 Chloride 92.0 mmol/L (98-107) L 03/20/21 08:33 Carbon Dioxide 36 mmol/L (22-30) H 03/20/21 08:33 Anion Gap 13 mmol/L 03/20/21 08:33 BUN 20 mg/dL (7-17) H 03/20/21 08:33 Creatinine 0.8 mg/dL (0.6-1.2) 03/20/21 08:33 Estimated GFR > 60 ml/min 03/20/21 08:33 BUN/Creatinine Ratio 25 % 03/20/21 08:33 Glucose 208 mg/dL (65-100) H 03/20/21 08:33 Lactic Acid 0.90 mmol/L (0.7-2.0) 03/16/21 19:48 Calcium 8.6 mg/dL (8.4-10.2) 03/20/21 08:33 Ferritin 65.2 ng/mL (10.0-200.0) 03/19/21 08:06 Total Bilirubin 0.40 mg/dL (0.1-1.2) 03/20/21 08:33 AST 28 units/L (5-40) 03/20/21 08:33 ALT 36 units/L (7-56) 03/20/21 08:33 Alkaline Phosphatase 59 units/L (35-129) 03/20/21 08:33 Lactate Dehydrogenase 659 units/L (91-180) H 03/19/21 08:06 C-Reactive Protein 2.00 mg/dL (0.00-1.30) H 03/19/21 08:06 NT-Pro-B Natriuret Pep 113.8 pg/mL (0-450) 03/16/21 17:12 Total Protein 7.1 g/dL (6.3-8.2) 03/20/21 08:33 Albumin 3.4 g/dL (3.9-5) L 03/20/21 08:33 Albumin/Globulin Ratio 0.9 % 03/20/21 08:33 Procalcitonin < 0.05 ng/mL (<0.15) 03/16/21 17:12 HCG, Qual Negative (Negative) 03/16/21 16:57 Arterial Blood Glucose 272 mg/dL (65-95) H 03/17/21 08:39 Arterial Blood Ionized Calcium 4.4 mg/dL (4.6-5.3) L 03/17/21 08:39 Urine Color Yellow (Yellow) 03/16/21 Unknown Urine Turbidity Clear (Clear) 03/16/21 Unknown Urine pH 6.0 (5.0-7.0) 03/16/21 Unknown Ur Specific [place] 1.014 (1.003-1.030) 03/16/21 Unknown Urine Protein 100 mg/dl mg/dL (Negative) 03/16/21 Unknown Urine Glucose (UA) >=500 mg/dL (Negative) 03/16/21 Unknown Urine Ketones Neg mg/dL (Negative) 03/16/21 Unknown Urine Blood Neg (Negative) 03/16/21 Unknown Urine Nitrite Neg (Negative) 03/16/21 Unknown Urine Bilirubin Neg (Negative) 03/16/21 Unknown Urine Urobilinogen < 2.0 mg/dL (<2.0) 03/16/21 Unknown Ur Leukocyte Esterase Neg (Negative) 03/16/21 Unknown Urine WBC (Auto) 2.0 /HPF (0.0-6.0) 03/16/21 Unknown Urine RBC (Auto) 1.0 /HPF (0.0-6.0) 03/16/21 Unknown U Epithel Cells (Auto) 1.0 /HPF (0-13.0) 03/16/21 Unknown Urine Bacteria (Auto) 1+ /HPF (Negative) 03/16/21 Unknown Urine Mucus Few /HPF 03/16/21 Unknown Coronavirus (PCR) Positive (Negative) A 03/17/21 09:10 Microbiology: Microbiology 03/16/21 17:14 Peripheral/Venous Blood Culture - Preliminary NO GROWTH AFTER 4 DAYS 03/16/21 16:57 Peripheral/Venous Blood Culture - Preliminary NO GROWTH AFTER 4 DAYS [place]/IV: Voiding Method Bedside Commode Active Medications - Current Medications Current Medications: Generic Name Dose Route Start Last Admin Trade Name Freq PRN Reason Stop Dose Admin Acetaminophen 650 mg 03/16/21 18:46 03/17/21 22:27 Acetaminophen 325 Mg Tab PO 650 mg Q4H PRN Administration Pain MILD(1-3)/Fever >100.5/CUEVA Albuterol 2.5 mg 03/16/21 18:46 Albuterol 2.5 Mg/3 Ml Nebu IH Q4HRT PRN Shortness Of Breath Alprazolam 0.25 mg 03/17/21 21:47 03/17/21 22:27 Alprazolam 0.25 Mg Tab PO 0.25 mg Q8H PRN Administration Anxiety Ascorbic Acid 500 mg 03/16/21 22:00 03/20/21 21:49 Ascorbic Acid 500 Mg Tab PO 500 mg BID WALLY Administration Bisacodyl 10 mg 03/19/21 13:12 Bisacodyl 5 Mg Tab PO QDAY PRN Constipation Cholecalciferol 1,000 unit 03/19/21 10:00 03/20/21 09:46 Cholecalciferol (Vit D3) 1000 Unit (25 Mcg) Tab PO 1,000 unit QDAY WALLY Administration Enoxaparin Sodium 130 mg 03/17/21 12:00 03/20/21 21:49 Enoxaparin 150 Mg/1 Ml Inj SUB-Q 130 mg Q12HR WALLY Administration Furosemide 40 mg 03/17/21 12:00 03/20/21 09:46 Furosemide 40 Mg/4 Ml Inj IV 40 mg QDAY WALLY Administration Hydromorphone HCl 0.5 mg 03/16/21 18:46 Hydromorphone 1 Mg/1 Ml Inj IV Q24H PRN Pain , Severe (7-10) REMDESIVIR 100 mg/ Sodium 250 mls @ 500 mls/hr 03/18/21 21:00 03/20/21 21:49 Chloride IV 03/21/21 21:29 500 mls/hr Q24HR@2100 WALLY Administration Magnesium Hydroxide 30 ml 03/18/21 16:19 03/19/21 06:17 Magnesium Hydroxide (Mom) Oral Liqd Udc PO 30 ml QDAY PRN Administration Constipation Methylprednisolone Sodium Succinate 125 mg 03/19/21 22:00 03/21/21 06:15 Methylprednisolone Sod Succinate 125 Mg/2 Ml Inj IV 125 mg Q8HR WALLY Administration Ondansetron HCl 4 mg 03/16/21 18:46 Ondansetron 4 Mg/2 Ml Inj IV Q8H PRN Nausea And Vomiting Oxycodone/Acetaminophen 1 tab 03/16/21 18:46 Oxycodone /Acetaminophen 5-325mg Tab PO Q12H PRN Pain, Moderate (4-6) Sodium Chloride 10 ml 03/16/21 22:00 03/20/21 21:50 Sodium Chloride 0.9% 10 Ml Flush Syringe IV 10 ml BID WALLY Administration Sodium Chloride 10 ml 03/16/21 18:46 03/18/21 06:24 Sodium Chloride 0.9% 10 Ml Flush Syringe IV 10 ml PRN PRN Administration LINE FLUSH Sodium Chloride 50 ml 03/18/21 21:00 03/20/21 21:47 Sodium Chloride 0.9% 50 Ml Ivpb IV 03/21/21 21:01 50 ml Q24HR@2100 WALLY Administration Zinc Sulfate 220 mg 03/16/21 22:00 03/20/21 21:49 Zinc Sulfate 220 Mg Cap PO 220 mg BID WALLY Administration
[2021-03-21] MEDS: ZINC SULFATE 220 MG CAP PO SCH ×2 (10:42→21:29)
[2021-03-21] MEDS: ASCORBIC ACID 500 MG TAB PO SCH ×2 (10:43→21:29)
[2021-03-21] MEDS: FUROSEMIDE 40 MG/4 ML INJ IV SCH (10:43)
[2021-03-21] MEDS: CHOLECALCIFEROL (VIT D3) 1000 UNIT (25 mcg) TAB PO SCH (10:43)
[2021-03-21] MEDS: ENOXAPARIN 150 MG/1 ML INJ SUB-Q SCH ×2 (10:46→21:29)
[2021-03-21] MEDS: REMDESIVIR 100 MG in SODIUM CHLORIDE 0.9% 250ML 250 ML IV SCH (21:27)
[2021-03-21] MEDS: SODIUM CHLORIDE 0.9% 50 ML IVPB IV SCH (21:28)
[2021-03-22] MEDS: methylPREDNISolone Sod Succinate 125 MG/2 ML INJ IV SCH ×3 (06:35→22:25)
[2021-03-22] MEDS: ENOXAPARIN 150 MG/1 ML INJ SUB-Q SCH ×2 (09:56→22:25)
[2021-03-22] MEDS: ASCORBIC ACID 500 MG TAB PO SCH ×2 (09:56→22:28)
[2021-03-22] MEDS: ZINC SULFATE 220 MG CAP PO SCH ×2 (09:56→22:26)
[2021-03-22] MEDS: CHOLECALCIFEROL (VIT D3) 1000 UNIT (25 mcg) TAB PO SCH (09:56)
[2021-03-22] MEDS: FUROSEMIDE 40 MG/4 ML INJ IV SCH (09:57)
--- NOTE | 2021-03-22 12:20 | Progress Note ---
Assessment and Plan 46 y/o female with acute respiratory failure secondary to COVID pneumonia. 03/22/21: Continue to wean for sats >88%. WIll order an evening dose of lasix today. Prone if possible. Still guarded prognosis despite weaning success. 03/21/21: Wean FiO2 for sats >88%. Per I/O negative on yesterday about 500cc's. Would shoot for goal of 1000cc's off. Guarded prognosis. Continue steroids. 03/20/21: Wean FiO2 for sats >88%. Prone if able. May need to consider BID lasix to achieve net negative fluid balance. Remdesivir. Guarded prognosis. Continue High dose steroids for now. 1. Increased steroids to 125q8 2. Prone if able 3. Remdesivir and Actemra 4. Monitor fluid balance and watch renal function 5. Guarded Prognosis. Subjective Date of service: 03/22/21 Principal diagnosis: COVID19 Interval history: Down to 30 and 60. Good sats. I/O shows negative only about 300 Objective Vital Signs - 12hr 03/22/21 04:23 Temperature 98.6 F Pulse Rate 89 Respiratory 18 Rate Blood Pressure 139/95 O2 Sat by Pulse 94 Oximetry Constitutional: other (mild distress) Eyes: non-icteric ENT: oropharynx moist Neck: supple Effort: normal Ascultation: Bilateral: diminished breath sounds Cardiovascular: regular rate and rhythm Gastrointestinal: normoactive bowel sounds, soft, non-tender, non-distended, other (obese) Integumentary: normal Extremities: no cyanosis Neurologic: normal mental status, non-focal exam CBC and BMP: 03/18/21 05:55 03/20/21 08:33 ABG, PT/INR, D-dimer: ABG ABG pH 7.457 (7.320-7.450) H 03/17/21 08:39 POC ABG pCO2 42.4 mmHg (32.0-48.0) 03/17/21 08:39 POC ABG pO2 57.4 mmHg (83-108) L 03/17/21 08:39 POC ABG HCO3 29.3 03/17/21 08:39 ABG O2 Saturation 89.3 (0-100) 03/17/21 08:39 PT/INR, D-dimer PT 13.0 Sec. (12.2-14.9) 03/16/21 16:57 INR 0.93 (0.87-1.13) 03/16/21 16:57 D-Dimer 362.63 ng/mlDDU (0-234) H 03/21/21 14:27 Abnormal lab findings: Abnormal Labs 03/16/21 03/16/21 03/16/21 16:57 16:57 16:57 WBC RBC 5.04 H MCV 72 L MCH 23 L RDW 19.0 H [place] % (Auto) 8.5 H Lymph # (Auto) 0.8 L Seg Neutrophils % 74.6 H D-Dimer 977.31 H ABG pH POC ABG pO2 ABG Hemoglobin ABG Oxyhemoglobin ABG Sodium ABG Glucose VBG pH Carboxyhemoglobin Sodium 133 L Chloride 92.0 L Carbon Dioxide BUN Glucose 131 H Lactic Acid Calcium AST 145 H ALT 57 H Lactate Dehydrogenase C-Reactive Protein Total Protein 8.7 H Albumin 3.5 L Arterial Blood Glucose Arterial Blood Ionized Calcium Coronavirus (PCR) 03/16/21 03/16/21 03/16/21 16:57 16:57 17:12 WBC RBC MCV MCH RDW [place] % (Auto) Lymph # (Auto) Seg Neutrophils % D-Dimer ABG pH POC ABG pO2 ABG Hemoglobin ABG Oxyhemoglobin ABG Sodium ABG Glucose VBG pH 7.430 H Carboxyhemoglobin Sodium Chloride Carbon Dioxide BUN Glucose Lactic Acid 2.40 H* Calcium AST ALT Lactate Dehydrogenase 944 H C-Reactive Protein 10.60 H Total Protein Albumin Arterial Blood Glucose Arterial Blood Ionized Calcium Coronavirus (PCR) 03/17/21 03/17/21 03/17/21 04:42 04:42 08:39 WBC 4.3 L RBC MCV 72 L MCH 23 L RDW 18.6 H [place] % (Auto) Lymph # (Auto) 0.6 L Seg Neutrophils % 80.6 H D-Dimer ABG pH 7.457 H POC ABG pO2 57.4 L ABG Hemoglobin 11.6 L ABG Oxyhemoglobin 88.7 L ABG Sodium 132.6 L ABG Glucose 272 H VBG pH Carboxyhemoglobin 0.4 L Sodium Chloride 97.6 L Carbon Dioxide BUN Glucose 269 H Lactic Acid Calcium 8.3 L AST 106 H ALT Lactate Dehydrogenase C-Reactive Protein Total Protein Albumin 3.2 L Arterial Blood Glucose 272 H Arterial Blood Ionized Calcium 4.4 L Coronavirus (PCR) 03/17/21 03/17/21 03/18/21 09:10 14:20 05:55 WBC RBC MCV 72 L MCH 23 L RDW 18.5 H [place] % (Auto) Lymph # (Auto) Seg Neutrophils % D-Dimer ABG pH POC ABG pO2 ABG Hemoglobin ABG Oxyhemoglobin ABG Sodium ABG Glucose VBG pH Carboxyhemoglobin Sodium Chloride 97.3 L Carbon Dioxide BUN Glucose 234 H Lactic Acid Calcium AST 87 H ALT Lactate Dehydrogenase C-Reactive Protein Total Protein Albumin 3.0 L Arterial Blood Glucose Arterial Blood Ionized Calcium Coronavirus (PCR) Positive A 03/18/21 03/19/21 03/19/21 05:55 07:42 08:06 WBC RBC MCV MCH RDW [place] % (Auto) Lymph # (Auto) Seg Neutrophils % D-Dimer ABG pH POC ABG pO2 ABG Hemoglobin ABG Oxyhemoglobin ABG Sodium ABG Glucose VBG pH Carboxyhemoglobin Sodium 136 L Chloride 97.5 L 94.1 L Carbon Dioxide 33 H BUN 18 H 21 H Glucose 237 H 172 H Lactic Acid Calcium 8.2 L 8.1 L AST 60 H ALT Lactate Dehydrogenase 659 H C-Reactive Protein 2.00 H Total Protein Albumin 3.0 L 2.9 L Arterial Blood Glucose Arterial Blood Ionized Calcium Coronavirus (PCR) 03/19/21 03/20/21 03/21/21 08:06 08:33 14:27 WBC RBC MCV MCH RDW [place] % (Auto) Lymph # (Auto) Seg Neutrophils % D-Dimer 581.09 H 362.63 H ABG pH POC ABG pO2 ABG Hemoglobin ABG Oxyhemoglobin ABG Sodium ABG Glucose VBG pH Carboxyhemoglobin Sodium Chloride 92.0 L Carbon Dioxide 36 H BUN 20 H Glucose 208 H Lactic Acid Calcium AST ALT Lactate Dehydrogenase C-Reactive Protein Total Protein Albumin 3.4 L Arterial Blood Glucose Arterial Blood Ionized Calcium Coronavirus (PCR)
[2021-03-22] MEDS ORDERED: FUROSEMIDE 40 MG/4 ML INJ IV SCH (13:00)
--- NOTE | 2021-03-22 13:07 | Progress Note ---
Assessment and Plan Assessment and plan: 46 YO Female with Obesity Hypoventilation Syndrome presents ED for evaluation. Patient reports "I cannot breathe, my head hurts". Patient states that she has experienced fever, generalized weakness, fatigue, malaise, dry cough, headache, diminished sense of smell, diminished sense of taste over the past 5 days with persistent and worsening symptoms over the same timeframe. Patient transported to [facility] via private vehicle for further care and evaluation of the aforementioned symptoms. The patient was seen and evaluated in the emergency department. All lab and imaging studies reviewed. The patient was found to be febrile with a temperature of 104 F as well as a pulse oximetry of 45% on room air which is consistent with acute hypoxemic respiratory failure. Patient was placed on supplemental oxygen without significant improvement in symptoms and was subsequently placed on high flow supplemental oxygen with mild improvement in symptoms. Chest x-ray revealed bilateral pneumonia. Patient admitted to medical floor and initiated on pneumonia as well as coronavirus protocols. Pulmonary team consulted in ED. Nephrology team consulted in ED. Patient denies chest pain, skin rash, recent ill contacts unilateral leg swelling, calf pain prolonged travel/immobility, individual/family history of DVT/PE/bleeding/blood clotting disorders. No prior admission for review. No medication listed at time of admission for reconciliation. Advanced care planning conducted in ED. Patient is not vaccinated against COVID-19. 03/17: Patient still severely hypoxic she is unvaccinated. ID recommended that she is lies prone as much as she can, I will also adjusted steroids for higher dose for better management. I also added some Lasix. Pulmonary input is noted will await ID input as patient will likely need remdesivir. Will monitor renal function. Continue monitoring inflammatory markers. Condition guarded discussed extensively with the patient critical care time 35 minutes 03/18/21 Patient is seen and examined Labs and medication reviewed Patient complained of less shortness of breath. No coughing. But patient is on high flow 40 L with 100% FiO2. O2 sat 94%. Continue current management. Solu- Medrol 80 mg IV every 8 hours remdesivir. Vitamin C, vitamin D and zinc and Tocilizumab. Wean oxygen slowly as tolerated. Infectious disease and pulmonary follow-up. Follow Covid inflammatory marker. 03/19: Continue supportive care. Continue steroid therapy. Pulmonary and ID input noted. Considering constipation will start the patient on some antibiotics and scheduled stool softeners. We will add some Lasix for better control of fluid management to help with oxygenation. Patient unfortunately still in guarded prognosis considering morbid obesity and COVID-19 in addition with severe hypoxia. 03/20/21: Continue supportive care. Pulmonary and ID input noted. Patient had bowel movement; we will continue scheduled stool softeners. Escalate steroids to high-dose 125 mg every 6hr, begin Actemra and remdesivir, Lasix twice daily per pulmonology recommendations. Remains on high flow nasal cannula at 40 L/min / 90% FiO2. De-escalate as patient tolerates. Patient prognosis still remains guarded given risk factor of morbid obesity and unvaccinated status. 03/21/2021: Continue supportive care. HFNC set to 30 l/min/ 70% FIO2. Continue to wean as patient sat tolerate > 88%. 03/22/2021: Continue to wean as patient tolerates. encourage proning. will continue supportive care. Pulm ordered evening lasix dose. (1) Acute hypoxemic respiratory failure Current Visit: Yes Status: Acute Plan to address problem: Chest x-ray, supplemental oxygen, pulse oximetry, nebulizer therapy, high flow supplemental oxygen at this time, if patient is unable to maintain pulse oximetry will consider noninvasive positive pressure ventilation with BiPAP. Pulmonary team consulted. (2) 2019-nCoV infection Current Visit: Yes Status: Acute Plan to address problem: Coronavirus protocol: Contact precaution, isolation precautions, IV antibiotic therapy, IV steroid therapy, vitamin C therapy, vitamin D therapy, zinc therapy, HFNC oxygen, prophylactic anticoagulation (3) Pneumonia Current Visit: Yes Status: Acute Plan to address problem: Pneumonia protocol: Chest x-ray, CBC, CMP, supplemental oxygen, pulse oximetry, nebulizer therapy, prone positioning while in bed, pulmonary toilet, (4) Obesity hypoventilation syndrome Current Visit: Yes Status: Acute Plan to address problem: Balanced diet, increase physical activity discharge, outpatient pulmonary follow-up for sleep study, outpatient bariatric surgery follow-up. (5) constipation (6) DVT prophylaxis Current Visit: Yes Status: Acute Plan to address problem: SCD to bilateral lower extremities while in bed, prophylactic anticoagulation (7) Advance care planning Current Visit: Yes Status: Acute Plan to address problem: Disease education conducted, care plan discussed, diagnosis discussed, prognosis discussed, patient is full code, patient knowledges understanding and agreement with care plan, +30 minutes. (8) 2019 novel coronavirus vaccination not done Current Visit: Yes Status: Acute Plan to address problem: Pt counseled. Hospitalist Physical - Physical exam Narrative exam: General appearance: Present: mild distress, obese, on high flow - EENT Eyes: Present: PERRL ENT: hearing intact, clear oral mucosa - Neck Neck: Present: supple, normal ROM - Respiratory Respiratory effort: labored, accessory muscle use, stridor Respiratory: bilateral: diminished, rhonchi - Cardiovascular Heart Sounds: Present: S1 & S2. Absent: rub, click - Extremities Extremities: pulses symmetrical, No edema Peripheral Pulses: within normal limits - Abdominal General gastrointestinal: Present: soft, non-tender, non-distended, normal bowel sounds Female genitourinary: Present: normal - Integumentary Integumentary: Present: clear, warm, dry - Musculoskeletal Musculoskeletal: gait normal, strength equal bilaterally - Psychiatric Psychiatric: appropriate mood/affect, intact judgment & insight - Neurologic Neurologic: CNII-XII intact, moves all extremities - Constitutional Vitals: Temp Pulse Resp BP Pulse Ox 98.6 F 89 18 139/95 94 03/22/21 04:23 03/22/21 04:23 03/22/21 04:23 03/22/21 04:23 03/22/21 04:23 General appearance: Present: mild distress, obese Results - Labs CBC & Chem 7: 03/18/21 05:55 03/20/21 08:33 Labs: Laboratory Last Values WBC 8.5 K/mm3 (4.5-11.0) 03/18/21 05:55 RBC 4.59 M/mm3 (3.65-5.03) 03/18/21 05:55 Hgb 10.4 gm/dl (10.1-14.3) 03/18/21 05:55 Hct 33.0 % (30.3-42.9) 03/18/21 05:55 MCV 72 fl (79-97) L 03/18/21 05:55 MCH 23 pg (28-32) L 03/18/21 05:55 MCHC 31 % (30-34) 03/18/21 05:55 RDW 18.5 % (13.2-15.2) H 03/18/21 05:55 Plt Count 279 K/mm3 (140-440) 03/18/21 05:55 Lymph % (Auto) 14.4 % (13.4-35.0) 03/17/21 04:42 [place] % (Auto) 4.9 % (0.0-7.3) 03/17/21 04:42 Eos % (Auto) 0.0 % (0.0-4.3) 03/17/21 04:42 Baso % (Auto) 0.1 % (0.0-1.8) 03/17/21 04:42 Lymph # (Auto) 0.6 K/mm3 (1.2-5.4) L 03/17/21 04:42 [place] # (Auto) 0.2 K/mm3 (0.0-0.8) 03/17/21 04:42 Eos # (Auto) 0.0 K/mm3 (0.0-0.4) 03/17/21 04:42 Baso # (Auto) 0.0 K/mm3 (0.0-0.1) 03/17/21 04:42 Seg Neutrophils % 80.6 % (40.0-70.0) H 03/17/21 04:42 Seg Neutrophils # 3.5 K/mm3 (1.8-7.7) 03/17/21 04:42 PT 13.0 Sec. (12.2-14.9) 03/16/21 16:57 INR 0.93 (0.87-1.13) 03/16/21 16:57 D-Dimer 362.63 ng/mlDDU (0-234) H 03/21/21 14:27 ABG pH 7.457 (7.320-7.450) H 03/17/21 08:39 POC ABG pCO2 42.4 mmHg (32.0-48.0) 03/17/21 08:39 POC ABG pO2 57.4 mmHg (83-108) L 03/17/21 08:39 POC ABG HCO3 29.3 03/17/21 08:39 ABG O2 Saturation 89.3 (0-100) 03/17/21 08:39 POC ABG Base Excess 4.9 03/17/21 08:39 ABG Hemoglobin 11.6 (12.0-17.5) L 03/17/21 08:39 ABG Oxyhemoglobin 88.7 (94-98) L 03/17/21 08:39 ABG Methemoglobin 0.3 (0.0-1.5) 03/17/21 08:39 ABG Sodium 132.6 mmol/L (136.0-145.0) L 03/17/21 08:39 ABG Potassium 4.1 mmol/L (3.40-4.50) 03/17/21 08:39 ABG Chloride 98.0 mmol/L (98-107) 03/17/21 08:39 ABG Glucose 272 mg/dL (65-95) H 03/17/21 08:39 VBG pH 7.430 (7.320-7.420) H 03/16/21 16:57 Carboxyhemoglobin 0.4 (0.5-1.5) L 03/17/21 08:39 FiO2 % 100.0 03/17/21 08:39 Sodium 137 mmol/L (137-145) 03/20/21 08:33 Potassium 4.1 mmol/L (3.6-5.0) 03/20/21 08:33 Chloride 92.0 mmol/L (98-107) L 03/20/21 08:33 Carbon Dioxide 36 mmol/L (22-30) H 03/20/21 08:33 Anion Gap 13 mmol/L 03/20/21 08:33 BUN 20 mg/dL (7-17) H 03/20/21 08:33 Creatinine 0.8 mg/dL (0.6-1.2) 03/20/21 08:33 Estimated GFR > 60 ml/min 03/20/21 08:33 BUN/Creatinine Ratio 25 % 03/20/21 08:33 Glucose 208 mg/dL (65-100) H 03/20/21 08:33 Lactic Acid 0.90 mmol/L (0.7-2.0) 03/16/21 19:48 Calcium 8.6 mg/dL (8.4-10.2) 03/20/21 08:33 Ferritin 57.5 ng/mL (10.0-200.0) 03/21/21 14:27 Total Bilirubin 0.40 mg/dL (0.1-1.2) 03/20/21 08:33 AST 28 units/L (5-40) 03/20/21 08:33 ALT 36 units/L (7-56) 03/20/21 08:33 Alkaline Phosphatase 59 units/L (35-129) 03/20/21 08:33 Lactate Dehydrogenase 659 units/L (91-180) H 03/19/21 08:06 C-Reactive Protein 0.70 mg/dL (0.00-1.30) 03/21/21 14:27 NT-Pro-B Natriuret Pep 113.8 pg/mL (0-450) 03/16/21 17:12 Total Protein 7.1 g/dL (6.3-8.2) 03/20/21 08:33 Albumin 3.4 g/dL (3.9-5) L 03/20/21 08:33 Albumin/Globulin Ratio 0.9 % 03/20/21 08:33 Procalcitonin < 0.05 ng/mL (<0.15) 03/16/21 17:12 HCG, Qual Negative (Negative) 03/16/21 16:57 Arterial Blood Glucose 272 mg/dL (65-95) H 03/17/21 08:39 Arterial Blood Ionized Calcium 4.4 mg/dL (4.6-5.3) L 03/17/21 08:39 Urine Color Yellow (Yellow) 03/16/21 Unknown Urine Turbidity Clear (Clear) 03/16/21 Unknown Urine pH 6.0 (5.0-7.0) 03/16/21 Unknown Ur Specific [place] 1.014 (1.003-1.030) 03/16/21 Unknown Urine Protein 100 mg/dl mg/dL (Negative) 03/16/21 Unknown Urine Glucose (UA) >=500 mg/dL (Negative) 03/16/21 Unknown Urine Ketones Neg mg/dL (Negative) 03/16/21 Unknown Urine Blood Neg (Negative) 03/16/21 Unknown Urine Nitrite Neg (Negative) 03/16/21 Unknown Urine Bilirubin Neg (Negative) 03/16/21 Unknown Urine Urobilinogen < 2.0 mg/dL (<2.0) 03/16/21 Unknown Ur Leukocyte Esterase Neg (Negative) 03/16/21 Unknown Urine WBC (Auto) 2.0 /HPF (0.0-6.0) 03/16/21 Unknown Urine RBC (Auto) 1.0 /HPF (0.0-6.0) 03/16/21 Unknown U Epithel Cells (Auto) 1.0 /HPF (0-13.0) 03/16/21 Unknown Urine Bacteria (Auto) 1+ /HPF (Negative) 03/16/21 Unknown Urine Mucus Few /HPF 03/16/21 Unknown Coronavirus (PCR) Positive (Negative) A 03/17/21 09:10 Microbiology: Microbiology 03/16/21 17:14 Peripheral/Venous Blood Culture - Final NO GROWTH AFTER 5 DAYS 03/16/21 16:57 Peripheral/Venous Blood Culture - Final NO GROWTH AFTER 5 DAYS [place]/IV: Voiding Method Bedside Commode Active Medications - Current Medications Current Medications: Generic Name Dose Route Start Last Admin Trade Name Freq PRN Reason Stop Dose Admin Acetaminophen 650 mg 03/16/21 18:46 03/17/21 22:27 Acetaminophen 325 Mg Tab PO 650 mg Q4H PRN Administration Pain MILD(1-3)/Fever >100.5/CUEVA Albuterol 2.5 mg 03/16/21 18:46 Albuterol 2.5 Mg/3 Ml Nebu IH Q4HRT PRN Shortness Of Breath Alprazolam 0.25 mg 03/17/21 21:47 03/17/21 22:27 Alprazolam 0.25 Mg Tab PO 0.25 mg Q8H PRN Administration Anxiety Ascorbic Acid 500 mg 03/16/21 22:00 03/22/21 09:56 Ascorbic Acid 500 Mg Tab PO 500 mg BID WALLY Administration Bisacodyl 10 mg 03/19/21 13:12 Bisacodyl 5 Mg Tab PO QDAY PRN Constipation Cholecalciferol 1,000 unit 03/19/21 10:00 03/22/21 09:56 Cholecalciferol (Vit D3) 1000 Unit (25 Mcg) Tab PO 1,000 unit QDAY WALLY Administration Enoxaparin Sodium 130 mg 03/17/21 12:00 03/22/21 09:56 Enoxaparin 150 Mg/1 Ml Inj SUB-Q 130 mg Q12HR WALLY Administration Furosemide 40 mg 03/17/21 12:00 03/22/21 09:57 Furosemide 40 Mg/4 Ml Inj IV 40 mg QDAY WALLY Administration Furosemide 40 mg 03/22/21 13:00 Furosemide 40 Mg/4 Ml Inj IV 03/22/21 17:00 ONCE@1300 WALLY Hydromorphone HCl 0.5 mg 03/16/21 18:46 Hydromorphone 1 Mg/1 Ml Inj IV Q24H PRN Pain , Severe (7-10) Magnesium Hydroxide 30 ml 03/18/21 16:19 03/19/21 06:17 Magnesium Hydroxide (Mom) Oral Liqd Udc PO 30 ml QDAY PRN Administration Constipation Methylprednisolone Sodium Succinate 125 mg 03/19/21 22:00 03/22/21 06:35 Methylprednisolone Sod Succinate 125 Mg/2 Ml Inj IV 125 mg Q8HR WALLY Administration Ondansetron HCl 4 mg 03/16/21 18:46 Ondansetron 4 Mg/2 Ml Inj IV Q8H PRN Nausea And Vomiting Oxycodone/Acetaminophen 1 tab 03/16/21 18:46 Oxycodone /Acetaminophen 5-325mg Tab PO Q12H PRN Pain, Moderate (4-6) Sodium Chloride 10 ml 03/16/21 22:00 03/22/21 09:57 Sodium Chloride 0.9% 10 Ml Flush Syringe IV 10 ml BID WALLY Administration Sodium Chloride 10 ml 03/16/21 18:46 03/18/21 06:24 Sodium Chloride 0.9% 10 Ml Flush Syringe IV 10 ml PRN PRN Administration LINE FLUSH Zinc Sulfate 220 mg 03/16/21 22:00 03/22/21 09:56 Zinc Sulfate 220 Mg Cap PO 220 mg BID WALLY Administration
--- NOTE | 2021-03-22 14:02 | Progress Note ---
Assessment and Plan Cultures: SARS CoV2 PCR: Positive 03/16/2021 blood culture: Negative 03/16/2021 urine culture: No significant growth A/P: 46-year-old female with morbid obesity, obesity hypoventilation admitted with: #Severe COVID-19 pneumonia: Chest x-ray with bilateral patchy airspace opacities, elevated CRP, normal procalcitonin. CRP 10-->2 #Acute hypoxic respiratory failure: remains on HFNC #Morbid obesity #Leukopenia: Likely secondary to viral illness, resolved. #Elevated LFTs: Due to COVID-19, resolved. Recs: -continue steroids per pulm -completed remdesivir x 5 days -completed tocilizumab on 03/20/2021 -prophylactic anticoagulation based on d-dimer per hospital protocol -trend d-dimer, CRP every 2-3 days Araseli Concepcion MD, FACP [facility] ([facility]) O: [phone] F: [phone] Subjective Date of service: 03/22/21 Principal diagnosis: COVID19 Interval history: Afebrile. Remains on high flow nasal cannula. Objective - Exam Narrative Exam: Physical Exam (reviewed in chart to minimize risk of transmission) Constitutional: deferred Head, Ears, Nose: deferred Eyes: deferred Neck: deferred Oral: deferred Cardiovascular: deferred Respiratory: deferred GI: deferred Musculoskeletal: deferred Skin: deferred Hem/Lymphatic: deferred Psych: deferred Neurological: deferred - Constitutional Vitals: Vital Signs Temp Pulse Resp BP Pulse Ox 98.4 F 91 H 22 153/101 94 03/22/21 11:40 03/22/21 11:40 03/22/21 11:40 03/22/21 11:40 03/22/21 13:04 Temperature -Last 24 Hours Temperature 98.4 F Temperature 98.6 F Temperature 98.4 F Temperature 98.1 F - Labs CBC & Chem 7: 03/18/21 05:55 03/20/21 08:33 Labs: Abnormal lab results 03/21/21 Range/Units 14:27 D-Dimer 362.63 H (0-234) ng/mlDDU
[2021-03-23] MEDS: methylPREDNISolone Sod Succinate 125 MG/2 ML INJ IV SCH ×3 (06:55→23:02)
[2021-03-23] MEDS: FUROSEMIDE 40 MG/4 ML INJ IV SCH (10:31)
[2021-03-23] MEDS: ZINC SULFATE 220 MG CAP PO SCH ×2 (10:31→23:03)
[2021-03-23] MEDS: ASCORBIC ACID 500 MG TAB PO SCH ×2 (10:31→23:03)
[2021-03-23] MEDS: CHOLECALCIFEROL (VIT D3) 1000 UNIT (25 mcg) TAB PO SCH (10:31)
--- NOTE | 2021-03-23 12:27 | Progress Note ---
Assessment and Plan Cultures: SARS CoV2 PCR: Positive 03/16/2021 blood culture: Negative 03/16/2021 urine culture: No significant growth A/P: 46-year-old female with morbid obesity, obesity hypoventilation admitted with: #Severe COVID-19 pneumonia: Chest x-ray with bilateral patchy airspace opacities, elevated CRP, normal procalcitonin. CRP has downtrended. #Acute hypoxic respiratory failure: remains on HFNC #Morbid obesity #Leukopenia: Likely secondary to viral illness, resolved. #Elevated LFTs: Due to COVID-19, resolved. Recs: -continue steroids per pulm -completed remdesivir x 5 days -completed tocilizumab on 03/20/2021 -prophylactic anticoagulation based on d-dimer per hospital protocol -oxygen weaning and ambulatory sats prior to discharge ID will sign off. Please reconsult as needed. Araseli Concepcion MD, FACP [facility], [facility] ([facility]) O: [phone] F: [phone] Subjective Date of service: 03/23/21 Principal diagnosis: COVID19 Interval history: Afebrile. Remains on high flow nasal cannula. Objective - Exam Narrative Exam: Physical Exam (reviewed in chart to minimize risk of transmission) Constitutional: deferred Head, Ears, Nose: deferred Eyes: deferred Neck: deferred Oral: deferred Cardiovascular: deferred Respiratory: deferred GI: deferred Musculoskeletal: deferred Skin: deferred Hem/Lymphatic: deferred Psych: deferred Neurological: deferred - Constitutional Vitals: Vital Signs Temp Pulse Resp BP Pulse Ox 99.1 F 87 20 139/91 93 03/23/21 04:47 03/23/21 04:47 03/23/21 04:47 03/23/21 04:47 03/23/21 11:00 Temperature -Last 24 Hours Temperature 99.1 F Temperature 98.3 F Temperature 98.1 F - Labs CBC & Chem 7: 03/18/21 05:55 03/20/21 08:33
--- NOTE | 2021-03-23 12:36 | Progress Note ---
Assessment and Plan 46 y/o female with acute respiratory failure secondary to COVID pneumonia. 03/23/21: Despite evening dose of lasix, still positive, but oxygen requirement improving. Will give again today. May need to check chemistry to evaluate renal function and k. Prone if able. 03/22/21: Continue to wean for sats >88%. WIll order an evening dose of lasix today. Prone if possible. Still guarded prognosis despite weaning success. 03/21/21: Wean FiO2 for sats >88%. Per I/O negative on yesterday about 500cc's. Would shoot for goal of 1000cc's off. Guarded prognosis. Continue steroids. 03/20/21: Wean FiO2 for sats >88%. Prone if able. May need to consider BID lasix to achieve net negative fluid balance. Remdesivir. Guarded prognosis. Continue High dose steroids for now. 1. Increased steroids to 125q8 2. Prone if able 3. Remdesivir and Actemra 4. Monitor fluid balance and watch renal function 5. Guarded Prognosis. Subjective Date of service: 03/23/21 Principal diagnosis: COVID19 Interval history: Down to 30 and 55%. Good sats. Objective Vital Signs - 12hr 03/23/21 03/23/21 03/23/21 04:47 04:57 05:21 Temperature 99.1 F Pulse Rate 87 Respiratory 20 Rate Blood Pressure 139/91 O2 Sat by Pulse 94 90 92 Oximetry 03/23/21 11:00 Temperature Pulse Rate Respiratory Rate Blood Pressure O2 Sat by Pulse 93 Oximetry Constitutional: other (mild distress) Eyes: non-icteric ENT: oropharynx moist Neck: supple Effort: normal Ascultation: Bilateral: diminished breath sounds Cardiovascular: regular rate and rhythm Gastrointestinal: normoactive bowel sounds, soft, non-tender, non-distended, other (obese) Integumentary: normal Extremities: no cyanosis Neurologic: normal mental status, non-focal exam CBC and BMP: 03/18/21 05:55 03/20/21 08:33 ABG, PT/INR, D-dimer: ABG ABG pH 7.457 (7.320-7.450) H 03/17/21 08:39 POC ABG pCO2 42.4 mmHg (32.0-48.0) 03/17/21 08:39 POC ABG pO2 57.4 mmHg (83-108) L 03/17/21 08:39 POC ABG HCO3 29.3 03/17/21 08:39 ABG O2 Saturation 89.3 (0-100) 03/17/21 08:39 PT/INR, D-dimer PT 13.0 Sec. (12.2-14.9) 03/16/21 16:57 INR 0.93 (0.87-1.13) 03/16/21 16:57 D-Dimer 362.63 ng/mlDDU (0-234) H 03/21/21 14:27 Abnormal lab findings: Abnormal Labs 03/16/21 03/16/21 03/16/21 16:57 16:57 16:57 WBC RBC 5.04 H MCV 72 L MCH 23 L RDW 19.0 H [place] % (Auto) 8.5 H Lymph # (Auto) 0.8 L Seg Neutrophils % 74.6 H D-Dimer 977.31 H ABG pH POC ABG pO2 ABG Hemoglobin ABG Oxyhemoglobin ABG Sodium ABG Glucose VBG pH Carboxyhemoglobin Sodium 133 L Chloride 92.0 L Carbon Dioxide BUN Glucose 131 H Lactic Acid Calcium AST 145 H ALT 57 H Lactate Dehydrogenase C-Reactive Protein Total Protein 8.7 H Albumin 3.5 L Arterial Blood Glucose Arterial Blood Ionized Calcium Coronavirus (PCR) 03/16/21 03/16/21 03/16/21 16:57 16:57 17:12 WBC RBC MCV MCH RDW [place] % (Auto) Lymph # (Auto) Seg Neutrophils % D-Dimer ABG pH POC ABG pO2 ABG Hemoglobin ABG Oxyhemoglobin ABG Sodium ABG Glucose VBG pH 7.430 H Carboxyhemoglobin Sodium Chloride Carbon Dioxide BUN Glucose Lactic Acid 2.40 H* Calcium AST ALT Lactate Dehydrogenase 944 H C-Reactive Protein 10.60 H Total Protein Albumin Arterial Blood Glucose Arterial Blood Ionized Calcium Coronavirus (PCR) 03/17/21 03/17/21 03/17/21 04:42 04:42 08:39 WBC 4.3 L RBC MCV 72 L MCH 23 L RDW 18.6 H [place] % (Auto) Lymph # (Auto) 0.6 L Seg Neutrophils % 80.6 H D-Dimer ABG pH 7.457 H POC ABG pO2 57.4 L ABG Hemoglobin 11.6 L ABG Oxyhemoglobin 88.7 L ABG Sodium 132.6 L ABG Glucose 272 H VBG pH Carboxyhemoglobin 0.4 L Sodium Chloride 97.6 L Carbon Dioxide BUN Glucose 269 H Lactic Acid Calcium 8.3 L AST 106 H ALT Lactate Dehydrogenase C-Reactive Protein Total Protein Albumin 3.2 L Arterial Blood Glucose 272 H Arterial Blood Ionized Calcium 4.4 L Coronavirus (PCR) 03/17/21 03/17/21 03/18/21 09:10 14:20 05:55 WBC RBC MCV 72 L MCH 23 L RDW 18.5 H [place] % (Auto) Lymph # (Auto) Seg Neutrophils % D-Dimer ABG pH POC ABG pO2 ABG Hemoglobin ABG Oxyhemoglobin ABG Sodium ABG Glucose VBG pH Carboxyhemoglobin Sodium Chloride 97.3 L Carbon Dioxide BUN Glucose 234 H Lactic Acid Calcium AST 87 H ALT Lactate Dehydrogenase C-Reactive Protein Total Protein Albumin 3.0 L Arterial Blood Glucose Arterial Blood Ionized Calcium Coronavirus (PCR) Positive A 03/18/21 03/19/21 03/19/21 05:55 07:42 08:06 WBC RBC MCV MCH RDW [place] % (Auto) Lymph # (Auto) Seg Neutrophils % D-Dimer ABG pH POC ABG pO2 ABG Hemoglobin ABG Oxyhemoglobin ABG Sodium ABG Glucose VBG pH Carboxyhemoglobin Sodium 136 L Chloride 97.5 L 94.1 L Carbon Dioxide 33 H BUN 18 H 21 H Glucose 237 H 172 H Lactic Acid Calcium 8.2 L 8.1 L AST 60 H ALT Lactate Dehydrogenase 659 H C-Reactive Protein 2.00 H Total Protein Albumin 3.0 L 2.9 L Arterial Blood Glucose Arterial Blood Ionized Calcium Coronavirus (PCR) 03/19/21 03/20/21 03/21/21 08:06 08:33 14:27 WBC RBC MCV MCH RDW [place] % (Auto) Lymph # (Auto) Seg Neutrophils % D-Dimer 581.09 H 362.63 H ABG pH POC ABG pO2 ABG Hemoglobin ABG Oxyhemoglobin ABG Sodium ABG Glucose VBG pH Carboxyhemoglobin Sodium Chloride 92.0 L Carbon Dioxide 36 H BUN 20 H Glucose 208 H Lactic Acid Calcium AST ALT Lactate Dehydrogenase C-Reactive Protein Total Protein Albumin 3.4 L Arterial Blood Glucose Arterial Blood Ionized Calcium Coronavirus (PCR)
[2021-03-23] MEDS: ENOXAPARIN 150 MG/1 ML INJ SUB-Q SCH ×2 (13:30→23:02)
[2021-03-23] MEDS ORDERED: SENNOSIDES 8.6 MG TAB PO PRN (15:42)
--- NOTE | 2021-03-23 15:44 | Progress Note ---
Assessment and Plan Assessment and plan: 46 YO Female with Obesity Hypoventilation Syndrome presents ED for evaluation. Patient reports "I cannot breathe, my head hurts". Patient states that she has experienced fever, generalized weakness, fatigue, malaise, dry cough, headache, diminished sense of smell, diminished sense of taste over the past 5 days with persistent and worsening symptoms over the same timeframe. Patient transported to [facility] via private vehicle for further care and evaluation of the aforementioned symptoms. The patient was seen and evaluated in the emergency department. All lab and imaging studies reviewed. The patient was found to be febrile with a temperature of 104 F as well as a pulse oximetry of 45% on room air which is consistent with acute hypoxemic respiratory failure. Patient was placed on supplemental oxygen without significant improvement in symptoms and was subsequently placed on high flow supplemental oxygen with mild improvement in symptoms. Chest x-ray revealed bilateral pneumonia. Patient admitted to medical floor and initiated on pneumonia as well as coronavirus protocols. Pulmonary team consulted in ED. Nephrology team consulted in ED. Patient denies chest pain, skin rash, recent ill contacts unilateral leg swelling, calf pain prolonged travel/immobility, individual/family history of DVT/PE/bleeding/blood clotting disorders. No prior admission for review. No medication listed at time of admission for reconciliation. Advanced care planning conducted in ED. Patient is not vaccinated against COVID-19. 03/17: Patient still severely hypoxic she is unvaccinated. ID recommended that she is lies prone as much as she can, I will also adjusted steroids for higher dose for better management. I also added some Lasix. Pulmonary input is noted will await ID input as patient will likely need remdesivir. Will monitor renal function. Continue monitoring inflammatory markers. Condition guarded discussed extensively with the patient critical care time 35 minutes 03/18/21 Patient is seen and examined Labs and medication reviewed Patient complained of less shortness of breath. No coughing. But patient is on high flow 40 L with 100% FiO2. O2 sat 94%. Continue current management. Solu- Medrol 80 mg IV every 8 hours remdesivir. Vitamin C, vitamin D and zinc and Tocilizumab. Wean oxygen slowly as tolerated. Infectious disease and pulmonary follow-up. Follow Covid inflammatory marker. 03/19: Continue supportive care. Continue steroid therapy. Pulmonary and ID input noted. Considering constipation will start the patient on some antibiotics and scheduled stool softeners. We will add some Lasix for better control of fluid management to help with oxygenation. Patient unfortunately still in guarded prognosis considering morbid obesity and COVID-19 in addition with severe hypoxia. 03/20/21: Continue supportive care. Pulmonary and ID input noted. Patient had bowel movement; we will continue scheduled stool softeners. Escalate steroids to high-dose 125 mg every 6hr, begin Actemra and remdesivir, Lasix twice daily per pulmonology recommendations. Remains on high flow nasal cannula at 40 L/min / 90% FiO2. De-escalate as patient tolerates. Patient prognosis still remains guarded given risk factor of morbid obesity and unvaccinated status. 03/21/2021: Continue supportive care. HFNC set to 30 l/min/ 70% FIO2. Continue to wean as patient sat tolerate > 88%. 03/22/2021: Continue to wean as patient tolerates. encourage proning. will continue supportive care. Pulm ordered evening lasix dose. 03/23/2021: Continue to wean as patient tolerates. Encourage proning. Will continue supportive care. HFNC 30 l /min, 55% fio2. (1) Acute hypoxemic respiratory failure Current Visit: Yes Status: Acute Plan to address problem: Chest x-ray, supplemental oxygen, pulse oximetry, nebulizer therapy, high flow supplemental oxygen at this time, if patient is unable to maintain pulse oximetry will consider noninvasive positive pressure ventilation with BiPAP. Pulmonary team consulted. (2) 2019-nCoV infection Current Visit: Yes Status: Acute Plan to address problem: Coronavirus protocol: Contact precaution, isolation precautions, IV antibiotic therapy, IV steroid therapy, vitamin C therapy, vitamin D therapy, zinc therapy, HFNC oxygen, prophylactic anticoagulation (3) Pneumonia Current Visit: Yes Status: Acute Plan to address problem: Pneumonia protocol: Chest x-ray, CBC, CMP, supplemental oxygen, pulse oximetry, nebulizer therapy, prone positioning while in bed, pulmonary toilet, (4) Obesity hypoventilation syndrome Current Visit: Yes Status: Acute Plan to address problem: Balanced diet, increase physical activity discharge, outpatient pulmonary follow-up for sleep study, outpatient bariatric surgery follow-up. (5) constipation (6) DVT prophylaxis Current Visit: Yes Status: Acute Plan to address problem: SCD to bilateral lower extremities while in bed, prophylactic anticoagulation (7) Advance care planning Current Visit: Yes Status: Acute Plan to address problem: Disease education conducted, care plan discussed, diagnosis discussed, prognosis discussed, patient is full code, patient knowledges understanding and agreement with care plan, +30 minutes. (8) 2019 novel coronavirus vaccination not done Current Visit: Yes Status: Acute Plan to address problem: Pt counseled. History Interval history: No complaints. Hospitalist Physical - Physical exam Narrative exam: General appearance: Present: mild distress, obese, on high flow - EENT Eyes: Present: PERRL ENT: hearing intact, clear oral mucosa - Neck Neck: Present: supple, normal ROM - Respiratory Respiratory effort: labored, accessory muscle use, stridor Respiratory: bilateral: diminished, rhonchi - Cardiovascular Heart Sounds: Present: S1 & S2. Absent: rub, click - Extremities Extremities: pulses symmetrical, No edema Peripheral Pulses: within normal limits - Abdominal General gastrointestinal: Present: soft, non-tender, non-distended, normal bowel sounds Female genitourinary: Present: normal - Integumentary Integumentary: Present: clear, warm, dry - Musculoskeletal Musculoskeletal: gait normal, strength equal bilaterally - Psychiatric Psychiatric: appropriate mood/affect, intact judgment & insight - Neurologic Neurologic: CNII-XII intact, moves all extremities - Constitutional Vitals: Temp Pulse Resp BP Pulse Ox 99.1 F 87 20 139/91 94 03/23/21 04:47 03/23/21 04:47 03/23/21 04:47 03/23/21 04:47 03/23/21 14:56 General appearance: Present: mild distress, obese Results - Labs CBC & Chem 7: 03/18/21 05:55 03/20/21 08:33 Labs: Laboratory Last Values WBC 8.5 K/mm3 (4.5-11.0) 03/18/21 05:55 RBC 4.59 M/mm3 (3.65-5.03) 03/18/21 05:55 Hgb 10.4 gm/dl (10.1-14.3) 03/18/21 05:55 Hct 33.0 % (30.3-42.9) 03/18/21 05:55 MCV 72 fl (79-97) L 03/18/21 05:55 MCH 23 pg (28-32) L 03/18/21 05:55 MCHC 31 % (30-34) 03/18/21 05:55 RDW 18.5 % (13.2-15.2) H 03/18/21 05:55 Plt Count 279 K/mm3 (140-440) 03/18/21 05:55 Lymph % (Auto) 14.4 % (13.4-35.0) 03/17/21 04:42 Barton % (Auto) 4.9 % (0.0-7.3) 03/17/21 04:42 Eos % (Auto) 0.0 % (0.0-4.3) 03/17/21 04:42 Baso % (Auto) 0.1 % (0.0-1.8) 03/17/21 04:42 Lymph # (Auto) 0.6 K/mm3 (1.2-5.4) L 03/17/21 04:42 Barton # (Auto) 0.2 K/mm3 (0.0-0.8) 03/17/21 04:42 Eos # (Auto) 0.0 K/mm3 (0.0-0.4) 03/17/21 04:42 Baso # (Auto) 0.0 K/mm3 (0.0-0.1) 03/17/21 04:42 Seg Neutrophils % 80.6 % (40.0-70.0) H 03/17/21 04:42 Seg Neutrophils # 3.5 K/mm3 (1.8-7.7) 03/17/21 04:42 PT 13.0 Sec. (12.2-14.9) 03/16/21 16:57 INR 0.93 (0.87-1.13) 03/16/21 16:57 D-Dimer 362.63 ng/mlDDU (0-234) H 03/21/21 14:27 ABG pH 7.457 (7.320-7.450) H 03/17/21 08:39 POC ABG pCO2 42.4 mmHg (32.0-48.0) 03/17/21 08:39 POC ABG pO2 57.4 mmHg (83-108) L 03/17/21 08:39 POC ABG HCO3 29.3 03/17/21 08:39 ABG O2 Saturation 89.3 (0-100) 03/17/21 08:39 POC ABG Base Excess 4.9 03/17/21 08:39 ABG Hemoglobin 11.6 (12.0-17.5) L 03/17/21 08:39 ABG Oxyhemoglobin 88.7 (94-98) L 03/17/21 08:39 ABG Methemoglobin 0.3 (0.0-1.5) 03/17/21 08:39 ABG Sodium 132.6 mmol/L (136.0-145.0) L 03/17/21 08:39 ABG Potassium 4.1 mmol/L (3.40-4.50) 03/17/21 08:39 ABG Chloride 98.0 mmol/L (98-107) 03/17/21 08:39 ABG Glucose 272 mg/dL (65-95) H 03/17/21 08:39 VBG pH 7.430 (7.320-7.420) H 03/16/21 16:57 Carboxyhemoglobin 0.4 (0.5-1.5) L 03/17/21 08:39 FiO2 % 100.0 03/17/21 08:39 Sodium 137 mmol/L (137-145) 03/20/21 08:33 Potassium 4.1 mmol/L (3.6-5.0) 03/20/21 08:33 Chloride 92.0 mmol/L (98-107) L 03/20/21 08:33 Carbon Dioxide 36 mmol/L (22-30) H 03/20/21 08:33 Anion Gap 13 mmol/L 03/20/21 08:33 BUN 20 mg/dL (7-17) H 03/20/21 08:33 Creatinine 0.8 mg/dL (0.6-1.2) 03/20/21 08:33 Estimated GFR > 60 ml/min 03/20/21 08:33 BUN/Creatinine Ratio 25 % 03/20/21 08:33 Glucose 208 mg/dL (65-100) H 03/20/21 08:33 Lactic Acid 0.90 mmol/L (0.7-2.0) 03/16/21 19:48 Calcium 8.6 mg/dL (8.4-10.2) 03/20/21 08:33 Ferritin 57.5 ng/mL (10.0-200.0) 03/21/21 14:27 Total Bilirubin 0.40 mg/dL (0.1-1.2) 03/20/21 08:33 AST 28 units/L (5-40) 03/20/21 08:33 ALT 36 units/L (7-56) 03/20/21 08:33 Alkaline Phosphatase 59 units/L (35-129) 03/20/21 08:33 Lactate Dehydrogenase 659 units/L (91-180) H 03/19/21 08:06 C-Reactive Protein 0.70 mg/dL (0.00-1.30) 03/21/21 14:27 NT-Pro-B Natriuret Pep 113.8 pg/mL (0-450) 03/16/21 17:12 Total Protein 7.1 g/dL (6.3-8.2) 03/20/21 08:33 Albumin 3.4 g/dL (3.9-5) L 03/20/21 08:33 Albumin/Globulin Ratio 0.9 % 03/20/21 08:33 Procalcitonin < 0.05 ng/mL (<0.15) 03/16/21 17:12 HCG, Qual Negative (Negative) 03/16/21 16:57 Arterial Blood Glucose 272 mg/dL (65-95) H 03/17/21 08:39 Arterial Blood Ionized Calcium 4.4 mg/dL (4.6-5.3) L 03/17/21 08:39 Urine Color Yellow (Yellow) 03/16/21 Unknown Urine Turbidity Clear (Clear) 03/16/21 Unknown Urine pH 6.0 (5.0-7.0) 03/16/21 Unknown Ur Specific [place] 1.014 (1.003-1.030) 03/16/21 Unknown Urine Protein 100 mg/dl mg/dL (Negative) 03/16/21 Unknown Urine Glucose (UA) >=500 mg/dL (Negative) 03/16/21 Unknown Urine Ketones Neg mg/dL (Negative) 03/16/21 Unknown Urine Blood Neg (Negative) 03/16/21 Unknown Urine Nitrite Neg (Negative) 03/16/21 Unknown Urine Bilirubin Neg (Negative) 03/16/21 Unknown Urine Urobilinogen < 2.0 mg/dL (<2.0) 03/16/21 Unknown Ur Leukocyte Esterase Neg (Negative) 03/16/21 Unknown Urine WBC (Auto) 2.0 /HPF (0.0-6.0) 03/16/21 Unknown Urine RBC (Auto) 1.0 /HPF (0.0-6.0) 03/16/21 Unknown U Epithel Cells (Auto) 1.0 /HPF (0-13.0) 03/16/21 Unknown Urine Bacteria (Auto) 1+ /HPF (Negative) 03/16/21 Unknown Urine Mucus Few /HPF 03/16/21 Unknown Coronavirus (PCR) Positive (Negative) A 03/17/21 09:10 [place]/IV: Voiding Method Bedside Commode Active Medications - Current Medications Current Medications: Generic Name Dose Route Start Last Admin Trade Name Freq PRN Reason Stop Dose Admin Acetaminophen 650 mg 03/16/21 18:46 03/17/21 22:27 Acetaminophen 325 Mg Tab PO 650 mg Q4H PRN Administration Pain MILD(1-3)/Fever >100.5/CUEVA Albuterol 2.5 mg 03/16/21 18:46 Albuterol 2.5 Mg/3 Ml Nebu IH Q4HRT PRN Shortness Of Breath Alprazolam 0.25 mg 03/17/21 21:47 03/17/21 22:27 Alprazolam 0.25 Mg Tab PO 0.25 mg Q8H PRN Administration Anxiety Ascorbic Acid 500 mg 03/16/21 22:00 03/23/21 10:31 Ascorbic Acid 500 Mg Tab PO 500 mg BID WALLY Administration Bisacodyl 10 mg 03/19/21 13:12 Bisacodyl 5 Mg Tab PO QDAY PRN Constipation Cholecalciferol 1,000 unit 03/19/21 10:00 03/23/21 10:31 Cholecalciferol (Vit D3) 1000 Unit (25 Mcg) Tab PO 1,000 unit QDAY WALLY Administration Enoxaparin Sodium 130 mg 03/17/21 12:00 03/23/21 13:30 Enoxaparin 150 Mg/1 Ml Inj SUB-Q 130 mg Q12HR WALLY Administration Furosemide 40 mg 03/17/21 12:00 03/23/21 10:31 Furosemide 40 Mg/4 Ml Inj IV 40 mg QDAY WALLY Administration Furosemide 40 mg 03/23/21 18:00 Furosemide 40 Mg/4 Ml Inj IV 03/23/21 18:01 ONCE ONE Hydromorphone HCl 0.5 mg 03/16/21 18:46 Hydromorphone 1 Mg/1 Ml Inj IV Q24H PRN Pain , Severe (7-10) Magnesium Hydroxide 30 ml 03/18/21 16:19 03/19/21 06:17 Magnesium Hydroxide (Mom) Oral Liqd Udc PO 30 ml QDAY PRN Administration Constipation Methylprednisolone Sodium Succinate 125 mg 03/19/21 22:00 03/23/21 13:22 Methylprednisolone Sod Succinate 125 Mg/2 Ml Inj IV 125 mg Q8HR WALLY Administration Ondansetron HCl 4 mg 03/16/21 18:46 Ondansetron 4 Mg/2 Ml Inj IV Q8H PRN Nausea And Vomiting Oxycodone/Acetaminophen 1 tab 03/16/21 18:46 Oxycodone /Acetaminophen 5-325mg Tab PO Q12H PRN Pain, Moderate (4-6) Sodium Chloride 10 ml 03/16/21 22:00 03/23/21 10:31 Sodium Chloride 0.9% 10 Ml Flush Syringe IV 10 ml BID WALLY Administration Sodium Chloride 10 ml 03/16/21 18:46 03/18/21 06:24 Sodium Chloride 0.9% 10 Ml Flush Syringe IV 10 ml PRN PRN Administration LINE FLUSH Zinc Sulfate 220 mg 03/16/21 22:00 03/23/21 10:31 Zinc Sulfate 220 Mg Cap PO 220 mg BID WALLY Administration Nutrition/Malnutrition Assess - Dietary Evaluation Nutrition/Malnutrition Findings: Nutrition Notes Start: 03/22/21 10:57 Freq: Status: Active Protocol: Document 03/22/21 12:58 (Rec: 03/22/21 13:08 [id number]) Nutrition Notes Need for Assessment generated from: LOS Initial or Follow up Brief Note Current Diagnosis Respiratory Failure Other Pertinent Diagnosis Covid +, Hypoventilation Syndrome Current Diet regular Labs/Tests BUN 20 Glu 208 Pertinent Medications Vit. C Vit. D Dulcolax Height 5 ft 6.14 in Weight 125.191 kg Felch Body Weight (kg) 59.40 BMI 44.3 Intake Prior to Admission Good Weight Status Morbidly Obese Subjective/Other Information RD screen for LOS. Pt says her appetite and intake was good [employer]. Pt says she has consumed 100% of each meal since her admission. Pt states her breakfast tray appeared to not have a complete serving of food on the plate, resulting in her being hungry at time of contact (10:30 am). Pt skin intact and regular BMs. Percent of energy/protein needs met: 100%/100% Burn Absent Trauma Absent GI Symptoms None Food Allergy No Current % PO Good (75-100%) Minimum of two criteria No #1 Nutrition Diagnosis No nutrition diagnosis at this time Is patient on ventilator? No Is Patient Ambulatory and/or Out of Bed Yes REE-([place]. Jeor-ambulatory/OOB) [ 2497.183 [id number]] Kcal/Kg value to use for calculation 14 Approximate Energy Requirements Using 1753 kcal/Kg Calculation Used for Recommendations Kcal/kg Additional Notes Protein Needs: 70-88 g/day Fluid Needs: 1 mL/kcal Nutrition Intervention Goal #1 Continue to meet claudy and protein needs via PO intake Anticipated Discharge Needs: Unable to determine at this time Revisit per MD consult or patient Sign Off request:
[2021-03-23] MEDS ORDERED: FUROSEMIDE 40 MG/4 ML INJ IV ONE (18:00)
[2021-03-23 18:41] LABS: Basophils % (Auto) 0.2 % (0.0-1.8); Eosinophils % (Auto) 0.1 % (0.0-4.3); Lymphocytes # (Auto) 0.4 K/mm3 (1.2-5.4); Lymphocytes % (Auto) 6.8 % (13.4-35.0); Mean Corpuscular HGB Conc 30 % (30-34); Mean Corpuscular Volume 74 fl (79-97); Monocytes # (Auto) 0.4 K/mm3 (0.0-0.8); Monocytes % (Auto) 6.2 % (0.0-7.3); Platelet Count 400 K/mm3 (140-440); Red Blood Count 5.21 M/mm3 (3.65-5.03); Red Cell Distribution Width 18.4 % (13.2-15.2)
[2021-03-23 18:47] LABS: Alanine Aminotransferase 35 units/L (7-56); Albumin 3.7 g/dL (3.9-5); BUN/Creatinine Ratio 27; Blood Urea Nitrogen 27 mg/dL (7-17); Hemolysis Index 2
[2021-03-23 19:05] LABS: Hematocrit 38.5 % (30.3-42.9); Hemoglobin 11.6 gm/dl (10.1-14.3)
[2021-03-24] MEDS: methylPREDNISolone Sod Succinate 125 MG/2 ML INJ IV SCH ×3 (06:30→22:07)
--- NOTE | 2021-03-24 08:05 | Progress Note ---
Assessment and Plan Assessment and plan: 46 YO Female with Obesity Hypoventilation Syndrome presents ED for evaluation. Patient reports "I cannot breathe, my head hurts". Patient states that she has experienced fever, generalized weakness, fatigue, malaise, dry cough, headache, diminished sense of smell, diminished sense of taste over the past 5 days with persistent and worsening symptoms over the same timeframe. Patient transported to [facility] via private vehicle for further care and evaluation of the aforementioned symptoms. The patient was seen and evaluated in the emergency department. All lab and imaging studies reviewed. The patient was found to be febrile with a temperature of 104 F as well as a pulse oximetry of 45% on room air which is consistent with acute hypoxemic respiratory failure. Patient was placed on supplemental oxygen without significant improvement in symptoms and was subsequently placed on high flow supplemental oxygen with mild improvement in symptoms. Chest x-ray revealed bilateral pneumonia. Patient admitted to medical floor and initiated on pneumonia as well as coronavirus protocols. Pulmonary team consulted in ED. Nephrology team consulted in ED. Patient denies chest pain, skin rash, recent ill contacts unilateral leg swelling, calf pain prolonged travel/immobility, individual/family history of DVT/PE/bleeding/blood clotting disorders. No prior admission for review. No medication listed at time of admission for reconciliation. Advanced care planning conducted in ED. Patient is not vaccinated against COVID-19. 03/17: Patient still severely hypoxic she is unvaccinated. ID recommended that she is lies prone as much as she can, I will also adjusted steroids for higher dose for better management. I also added some Lasix. Pulmonary input is noted will await ID input as patient will likely need remdesivir. Will monitor renal function. Continue monitoring inflammatory markers. Condition guarded discussed extensively with the patient critical care time 35 minutes 03/18/21 Patient is seen and examined Labs and medication reviewed Patient complained of less shortness of breath. No coughing. But patient is on high flow 40 L with 100% FiO2. O2 sat 94%. Continue current management. Solu- Medrol 80 mg IV every 8 hours remdesivir. Vitamin C, vitamin D and zinc and Tocilizumab. Wean oxygen slowly as tolerated. Infectious disease and pulmonary follow-up. Follow Covid inflammatory marker. 03/19: Continue supportive care. Continue steroid therapy. Pulmonary and ID input noted. Considering constipation will start the patient on some antibiotics and scheduled stool softeners. We will add some Lasix for better control of fluid management to help with oxygenation. Patient unfortunately still in guarded prognosis considering morbid obesity and COVID-19 in addition with severe hypoxia. 03/20/21: Continue supportive care. Pulmonary and ID input noted. Patient had bowel movement; we will continue scheduled stool softeners. Escalate steroids to high-dose 125 mg every 6hr, begin Actemra and remdesivir, Lasix twice daily per pulmonology recommendations. Remains on high flow nasal cannula at 40 L/min / 90% FiO2. De-escalate as patient tolerates. Patient prognosis still remains guarded given risk factor of morbid obesity and unvaccinated status. 03/21/2021: Continue supportive care. HFNC set to 30 l/min/ 70% FIO2. Continue to wean as patient sat tolerate > 88%. 03/22/2021: Continue to wean as patient tolerates. encourage proning. will continue supportive care. Pulm ordered evening lasix dose. 03/23/2021: Continue to wean as patient tolerates. Encourage proning. Will continue supportive care. HFNC 30 l /min, 55% fio2. s/p addtl lasix dose. 03/24/2021: Continue to wean as patient tolerates. Encourage proning. Will conitnue supportive care. (1) Acute hypoxemic respiratory failure Current Visit: Yes Status: Acute Plan to address problem: Chest x-ray, supplemental oxygen, pulse oximetry, nebulizer therapy, high flow supplemental oxygen at this time, if patient is unable to maintain pulse oximetry will consider noninvasive positive pressure ventilation with BiPAP. Pulmonary team consulted. (2) 2019-nCoV infection Current Visit: Yes Status: Acute Plan to address problem: Coronavirus protocol: Contact precaution, isolation precautions, IV antibiotic therapy, IV steroid therapy, vitamin C therapy, vitamin D therapy, zinc therapy, HFNC oxygen, prophylactic anticoagulation (3) Pneumonia Current Visit: Yes Status: Acute Plan to address problem: Pneumonia protocol: Chest x-ray, CBC, CMP, supplemental oxygen, pulse oximetry, nebulizer therapy, prone positioning while in bed, pulmonary toilet, (4) Obesity hypoventilation syndrome Current Visit: Yes Status: Acute Plan to address problem: Balanced diet, increase physical activity discharge, outpatient pulmonary follow-up for sleep study, outpatient bariatric surgery follow-up. (5) constipation (6) DVT prophylaxis Current Visit: Yes Status: Acute Plan to address problem: SCD to bilateral lower extremities while in bed, prophylactic anticoagulation (7) Advance care planning Current Visit: Yes Status: Acute Plan to address problem: Disease education conducted, care plan discussed, diagnosis discussed, prognosis discussed, patient is full code, patient knowledges understanding and agreement with care plan, +30 minutes. (8) 2019 novel coronavirus vaccination not done Current Visit: Yes Status: Acute Plan to address problem: Pt counseled. History Interval history: no complaints this AM. Hospitalist Physical - Physical exam Narrative exam: General appearance: Present: mild distress, obese, on high flow - EENT Eyes: Present: PERRL ENT: hearing intact, clear oral mucosa - Neck Neck: Present: supple, normal ROM - Respiratory Respiratory effort: labored, accessory muscle use, stridor Respiratory: bilateral: diminished, rhonchi - Cardiovascular Heart Sounds: Present: S1 & S2. Absent: rub, click - Extremities Extremities: pulses symmetrical, No edema Peripheral Pulses: within normal limits - Abdominal General gastrointestinal: Present: soft, non-tender, non-distended, normal bowel sounds Female genitourinary: Present: normal - Integumentary Integumentary: Present: clear, warm, dry - Musculoskeletal Musculoskeletal: gait normal, strength equal bilaterally - Psychiatric Psychiatric: appropriate mood/affect, intact judgment & insight - Neurologic Neurologic: CNII-XII intact, moves all extremities - Constitutional Vitals: Temp Pulse Resp BP Pulse Ox 98.2 F 81 18 125/84 93 03/24/21 05:33 03/24/21 05:33 03/24/21 05:33 03/24/21 05:33 03/24/21 05:33 General appearance: Present: mild distress, obese Results - Labs CBC & Chem 7: 03/24/21 06:25 03/24/21 06:25 Labs: Laboratory Last Values WBC 6.5 K/mm3 (4.5-11.0) 03/23/21 18:01 RBC 5.21 M/mm3 (3.65-5.03) H 03/23/21 18:01 Hgb 11.6 gm/dl (10.1-14.3) 03/23/21 18:01 Hct 38.5 % (30.3-42.9) 03/23/21 18:01 MCV 74 fl (79-97) L 03/23/21 18:01 MCH 22 pg (28-32) L 03/23/21 18:01 MCHC 30 % (30-34) 03/23/21 18:01 RDW 18.4 % (13.2-15.2) H 03/23/21 18:01 Plt Count 400 K/mm3 (140-440) 03/23/21 18:01 Lymph % (Auto) 6.8 % (13.4-35.0) L 03/23/21 18:01 Brown % (Auto) 6.2 % (0.0-7.3) 03/23/21 18:01 Eos % (Auto) 0.1 % (0.0-4.3) 03/23/21 18:01 Baso % (Auto) 0.2 % (0.0-1.8) 03/23/21 18:01 Lymph # (Auto) 0.4 K/mm3 (1.2-5.4) L 03/23/21 18:01 Brown # (Auto) 0.4 K/mm3 (0.0-0.8) 03/23/21 18:01 Eos # (Auto) 0.0 K/mm3 (0.0-0.4) 03/23/21 18:01 Baso # (Auto) 0.0 K/mm3 (0.0-0.1) 03/23/21 18:01 Seg Neutrophils % 86.7 % (40.0-70.0) H 03/23/21 18:01 Seg Neutrophils # 5.7 K/mm3 (1.8-7.7) 03/23/21 18:01 PT 13.0 Sec. (12.2-14.9) 03/16/21 16:57 INR 0.93 (0.87-1.13) 03/16/21 16:57 D-Dimer 227.30 ng/mlDDU (0-234) 03/23/21 18:01 ABG pH 7.457 (7.320-7.450) H 03/17/21 08:39 POC ABG pCO2 42.4 mmHg (32.0-48.0) 03/17/21 08:39 POC ABG pO2 57.4 mmHg (83-108) L 03/17/21 08:39 POC ABG HCO3 29.3 03/17/21 08:39 ABG O2 Saturation 89.3 (0-100) 03/17/21 08:39 POC ABG Base Excess 4.9 03/17/21 08:39 ABG Hemoglobin 11.6 (12.0-17.5) L 03/17/21 08:39 ABG Oxyhemoglobin 88.7 (94-98) L 03/17/21 08:39 ABG Methemoglobin 0.3 (0.0-1.5) 03/17/21 08:39 ABG Sodium 132.6 mmol/L (136.0-145.0) L 03/17/21 08:39 ABG Potassium 4.1 mmol/L (3.40-4.50) 03/17/21 08:39 ABG Chloride 98.0 mmol/L (98-107) 03/17/21 08:39 ABG Glucose 272 mg/dL (65-95) H 03/17/21 08:39 VBG pH 7.430 (7.320-7.420) H 03/16/21 16:57 Carboxyhemoglobin 0.4 (0.5-1.5) L 03/17/21 08:39 FiO2 % 100.0 03/17/21 08:39 Sodium 132 mmol/L (137-145) L 03/23/21 18:01 Potassium 4.1 mmol/L (3.6-5.0) 03/23/21 18:01 Chloride 83.2 mmol/L (98-107) L 03/23/21 18:01 Carbon Dioxide 33 mmol/L (22-30) H 03/23/21 18:01 Anion Gap 20 mmol/L 03/23/21 18:01 BUN 27 mg/dL (7-17) H 03/23/21 18:01 Creatinine 1.0 mg/dL (0.6-1.2) 03/23/21 18:01 Estimated GFR > 60 ml/min 03/23/21 18:01 BUN/Creatinine Ratio 27 % 03/23/21 18:01 Glucose 455 mg/dL (65-100) H 03/23/21 18:01 Lactic Acid 0.90 mmol/L (0.7-2.0) 03/16/21 19:48 Calcium 9.0 mg/dL (8.4-10.2) 03/23/21 18:01 Ferritin 42.7 ng/mL (10.0-200.0) 03/23/21 18:01 Total Bilirubin 0.60 mg/dL (0.1-1.2) 03/23/21 18:01 AST 16 units/L (5-40) 03/23/21 18:01 ALT 35 units/L (7-56) 03/23/21 18:01 Alkaline Phosphatase 59 units/L (35-129) 03/23/21 18:01 Lactate Dehydrogenase 374 units/L (91-180) H 03/23/21 18:01 C-Reactive Protein 0.30 mg/dL (0.00-1.30) 03/23/21 18:01 NT-Pro-B Natriuret Pep 113.8 pg/mL (0-450) 03/16/21 17:12 Total Protein 6.9 g/dL (6.3-8.2) 03/23/21 18:01 Albumin 3.7 g/dL (3.9-5) L 03/23/21 18:01 Albumin/Globulin Ratio 1.2 % 03/23/21 18:01 Procalcitonin < 0.05 ng/mL (<0.15) 03/16/21 17:12 HCG, Qual Negative (Negative) 03/16/21 16:57 Arterial Blood Glucose 272 mg/dL (65-95) H 03/17/21 08:39 Arterial Blood Ionized Calcium 4.4 mg/dL (4.6-5.3) L 03/17/21 08:39 Urine Color Yellow (Yellow) 03/16/21 Unknown Urine Turbidity Clear (Clear) 03/16/21 Unknown Urine pH 6.0 (5.0-7.0) 03/16/21 Unknown Ur Specific [place] 1.014 (1.003-1.030) 03/16/21 Unknown Urine Protein 100 mg/dl mg/dL (Negative) 03/16/21 Unknown Urine Glucose (UA) >=500 mg/dL (Negative) 03/16/21 Unknown Urine Ketones Neg mg/dL (Negative) 03/16/21 Unknown Urine Blood Neg (Negative) 03/16/21 Unknown Urine Nitrite Neg (Negative) 03/16/21 Unknown Urine Bilirubin Neg (Negative) 03/16/21 Unknown Urine Urobilinogen < 2.0 mg/dL (<2.0) 03/16/21 Unknown Ur Leukocyte Esterase Neg (Negative) 03/16/21 Unknown Urine WBC (Auto) 2.0 /HPF (0.0-6.0) 03/16/21 Unknown Urine RBC (Auto) 1.0 /HPF (0.0-6.0) 03/16/21 Unknown U Epithel Cells (Auto) 1.0 /HPF (0-13.0) 03/16/21 Unknown Urine Bacteria (Auto) 1+ /HPF (Negative) 03/16/21 Unknown Urine Mucus Few /HPF 03/16/21 Unknown Coronavirus (PCR) Positive (Negative) A 03/17/21 09:10 [place]/IV: Voiding Method Bedside Commode Active Medications - Current Medications Current Medications: Generic Name Dose Route Start Last Admin Trade Name Freq PRN Reason Stop Dose Admin Acetaminophen 650 mg 03/16/21 18:46 03/17/21 22:27 Acetaminophen 325 Mg Tab PO 650 mg Q4H PRN Administration Pain MILD(1-3)/Fever >100.5/CUEVA Albuterol 2.5 mg 03/16/21 18:46 Albuterol 2.5 Mg/3 Ml Nebu IH Q4HRT PRN Shortness Of Breath Alprazolam 0.25 mg 03/17/21 21:47 03/17/21 22:27 Alprazolam 0.25 Mg Tab PO 0.25 mg Q8H PRN Administration Anxiety Ascorbic Acid 500 mg 03/16/21 22:00 03/23/21 23:03 Ascorbic Acid 500 Mg Tab PO 500 mg BID WALLY Administration Bisacodyl 10 mg 03/19/21 13:12 Bisacodyl 5 Mg Tab PO QDAY PRN Constipation Cholecalciferol 1,000 unit 03/19/21 10:00 03/23/21 10:31 Cholecalciferol (Vit D3) 1000 Unit (25 Mcg) Tab PO 1,000 unit QDAY WALLY Administration Enoxaparin Sodium 130 mg 03/17/21 12:00 03/23/21 23:02 Enoxaparin 150 Mg/1 Ml Inj SUB-Q 130 mg Q12HR WALLY Administration Furosemide 40 mg 03/17/21 12:00 03/23/21 10:31 Furosemide 40 Mg/4 Ml Inj IV 40 mg QDAY WALLY Administration Hydromorphone HCl 0.5 mg 03/16/21 18:46 Hydromorphone 1 Mg/1 Ml Inj IV Q24H PRN Pain , Severe (7-10) Magnesium Hydroxide 30 ml 03/18/21 16:19 03/19/21 06:17 Magnesium Hydroxide (Mom) Oral Liqd Udc PO 30 ml QDAY PRN Administration Constipation Methylprednisolone Sodium Succinate 125 mg 03/19/21 22:00 03/24/21 06:30 Methylprednisolone Sod Succinate 125 Mg/2 Ml Inj IV 125 mg Q8HR WALLY Administration Ondansetron HCl 4 mg 03/16/21 18:46 Ondansetron 4 Mg/2 Ml Inj IV Q8H PRN Nausea And Vomiting Oxycodone/Acetaminophen 1 tab 03/16/21 18:46 Oxycodone /Acetaminophen 5-325mg Tab PO Q12H PRN Pain, Moderate (4-6) Senna 8.6 mg 03/23/21 15:42 Sennosides 8.6 Mg Tab PO Q12H PRN Laxative Effect Sodium Chloride 10 ml 03/16/21 22:00 03/23/21 23:05 Sodium Chloride 0.9% 10 Ml Flush Syringe IV 10 ml BID WALLY Administration Sodium Chloride 10 ml 03/16/21 18:46 03/18/21 06:24 Sodium Chloride 0.9% 10 Ml Flush Syringe IV 10 ml PRN PRN Administration LINE FLUSH Zinc Sulfate 220 mg 03/16/21 22:00 03/23/21 23:03 Zinc Sulfate 220 Mg Cap PO 220 mg BID WALLY Administration Nutrition/Malnutrition Assess - Dietary Evaluation Nutrition/Malnutrition Findings: Nutrition Notes Start: 03/22/21 10:57 Freq: Status: Active Protocol: Document 03/22/21 12:58 EB (Rec: 03/22/21 13:08 EB [id number]) Nutrition Notes Need for Assessment generated from: LOS Initial or Follow up Brief Note Current Diagnosis Respiratory Failure Other Pertinent Diagnosis Covid +, Hypoventilation Syndrome Current Diet regular Labs/Tests BUN 20 Glu 208 Pertinent Medications Vit. C Vit. D Dulcolax Height 5 ft 6.14 in Weight 125.191 kg [place] Body Weight (kg) 59.40 BMI 44.3 Intake Prior to Admission Good Weight Status Morbidly Obese Subjective/Other Information RD screen for LOS. 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 Pt says she has consumed 100% of each meal since her admission. Pt states her breakfast tray appeared to not have a complete serving of food on the plate, resulting in her being hungry at time of contact (10:30 am). Pt skin intact and regular BMs. Percent of energy/protein needs met: 100%/100% Burn Absent Trauma Absent GI Symptoms None Food Allergy No Current % PO Good (75-100%) Minimum of two criteria No #1 Nutrition Diagnosis No nutrition diagnosis at this time Is patient on ventilator? No Is Patient Ambulatory and/or Out of Bed Yes REE-([place]-St. Jeor-ambulatory/OOB) [ 2497.183 NUTR.[id number]] Kcal/Kg value to use for calculation 14 Approximate Energy Requirements Using 1753 kcal/Kg Calculation Used for Recommendations Kcal/kg Additional Notes Protein Needs: 70-88 g/day Fluid Needs: 1 mL/kcal Nutrition Intervention Goal #1 Continue to meet claudy and protein needs via PO intake Anticipated Discharge Needs: Unable to determine at this time Revisit per MD consult or patient Sign Off request:
[2021-03-24 08:29] LABS: Alanine Aminotransferase 27 units/L (7-56); Albumin 3.3 g/dL (3.9-5); BUN/Creatinine Ratio 30; Blood Urea Nitrogen 24 mg/dL (7-17); Calcium 8.8 mg/dL (8.4-10.2); Hemolysis Index 1
[2021-03-24 08:45] LABS: Basophils % (Auto) 0.3 % (0.0-1.8); Hematocrit 33.9 % (30.3-42.9); Hemoglobin 10.5 gm/dl (10.1-14.3); Lymphocytes # (Auto) 0.6 K/mm3 (1.2-5.4); Lymphocytes % (Auto) 10.4 % (13.4-35.0); Mean Corpuscular HGB Conc 31 % (30-34); Mean Corpuscular Volume 72 fl (79-97); Monocytes # (Auto) 0.4 K/mm3 (0.0-0.8); Monocytes % (Auto) 7.2 % (0.0-7.3); Platelet Count 361 K/mm3 (140-440); Red Blood Count 4.69 M/mm3 (3.65-5.03); Red Cell Distribution Width 18.7 % (13.2-15.2)
[2021-03-24] MEDS: ENOXAPARIN 150 MG/1 ML INJ SUB-Q SCH ×2 (10:46→22:06)
[2021-03-24] MEDS: CHOLECALCIFEROL (VIT D3) 1000 UNIT (25 mcg) TAB PO SCH (10:47)
[2021-03-24] MEDS: ASCORBIC ACID 500 MG TAB PO SCH ×2 (10:47→22:07)
[2021-03-24] MEDS: FUROSEMIDE 40 MG/4 ML INJ IV SCH (10:47)
[2021-03-24] MEDS: ZINC SULFATE 220 MG CAP PO SCH ×2 (10:47→22:07)
--- NOTE | 2021-03-24 11:55 | Progress Note ---
Assessment and Plan 46 y/o female with acute respiratory failure secondary to COVID pneumonia. 03/24/21: Hold on lasix today. Continue high dose steroids but may consider weaning as early as friday. Prone if possible. Prognosis is still guarded. 03/23/21: Despite evening dose of lasix, still positive, but oxygen requirement improving. Will give again today. May need to check chemistry to evaluate renal function and k. Prone if able. 03/22/21: Continue to wean for sats >88%. WIll order an evening dose of lasix today. Prone if possible. Still guarded prognosis despite weaning success. 03/21/21: Wean FiO2 for sats >88%. Per I/O negative on yesterday about 500cc's. Would shoot for goal of 1000cc's off. Guarded prognosis. Continue steroids. 03/20/21: Wean FiO2 for sats >88%. Prone if able. May need to consider BID lasix to achieve net negative fluid balance. Remdesivir. Guarded prognosis. Continue High dose steroids for now. 1. Increased steroids to 125q8 2. Prone if able 3. Remdesivir and Actemra 4. Monitor fluid balance and watch renal function 5. Guarded Prognosis. Subjective Date of service: 03/24/21 Principal diagnosis: COVID19 Interval history: FiO2 continues to be weaned down. Objective Vital Signs - 12hr 03/24/21 03/24/21 03/24/21 01:22 02:18 05:33 Temperature 98.2 F Pulse Rate 81 Respiratory 20 18 Rate Blood Pressure 125/84 O2 Sat by Pulse 90 97 93 Oximetry Constitutional: other (mild distress) Eyes: non-icteric ENT: oropharynx moist Neck: supple Effort: normal Ascultation: Bilateral: diminished breath sounds Cardiovascular: regular rate and rhythm Gastrointestinal: normoactive bowel sounds, soft, non-tender, non-distended, other (obese) Integumentary: normal Extremities: no cyanosis Neurologic: normal mental status, non-focal exam CBC and BMP: 03/24/21 06:25 03/24/21 06:25 ABG, PT/INR, D-dimer: ABG ABG pH 7.457 (7.320-7.450) H 03/17/21 08:39 POC ABG pCO2 42.4 mmHg (32.0-48.0) 03/17/21 08:39 POC ABG pO2 57.4 mmHg (83-108) L 03/17/21 08:39 POC ABG HCO3 29.3 03/17/21 08:39 ABG O2 Saturation 89.3 (0-100) 03/17/21 08:39 PT/INR, D-dimer PT 13.0 Sec. (12.2-14.9) 03/16/21 16:57 INR 0.93 (0.87-1.13) 03/16/21 16:57 D-Dimer 206.51 ng/mlDDU (0-234) 03/24/21 06:25 Abnormal lab findings: Abnormal Labs 03/16/21 03/16/21 03/16/21 16:57 16:57 16:57 WBC RBC 5.04 H MCV 72 L MCH 23 L RDW 19.0 H Lymph % (Auto) [place] % (Auto) 8.5 H Lymph # (Auto) 0.8 L Seg Neutrophils % 74.6 H D-Dimer 977.31 H ABG pH POC ABG pO2 ABG Hemoglobin ABG Oxyhemoglobin ABG Sodium ABG Glucose VBG pH Carboxyhemoglobin Sodium 133 L Chloride 92.0 L Carbon Dioxide BUN Glucose 131 H Lactic Acid Calcium AST 145 H ALT 57 H Lactate Dehydrogenase C-Reactive Protein Total Protein 8.7 H Albumin 3.5 L Arterial Blood Glucose Arterial Blood Ionized Calcium Coronavirus (PCR) 03/16/21 03/16/21 03/16/21 16:57 16:57 17:12 WBC RBC MCV MCH RDW Lymph % (Auto) [place] % (Auto) Lymph # (Auto) Seg Neutrophils % D-Dimer ABG pH POC ABG pO2 ABG Hemoglobin ABG Oxyhemoglobin ABG Sodium ABG Glucose VBG pH 7.430 H Carboxyhemoglobin Sodium Chloride Carbon Dioxide BUN Glucose Lactic Acid 2.40 H* Calcium AST ALT Lactate Dehydrogenase 944 H C-Reactive Protein 10.60 H Total Protein Albumin Arterial Blood Glucose Arterial Blood Ionized Calcium Coronavirus (PCR) 03/17/21 03/17/21 03/17/21 04:42 04:42 08:39 WBC 4.3 L RBC MCV 72 L MCH 23 L RDW 18.6 H Lymph % (Auto) [place] % (Auto) Lymph # (Auto) 0.6 L Seg Neutrophils % 80.6 H D-Dimer ABG pH 7.457 H POC ABG pO2 57.4 L ABG Hemoglobin 11.6 L ABG Oxyhemoglobin 88.7 L ABG Sodium 132.6 L ABG Glucose 272 H VBG pH Carboxyhemoglobin 0.4 L Sodium Chloride 97.6 L Carbon Dioxide BUN Glucose 269 H Lactic Acid Calcium 8.3 L AST 106 H ALT Lactate Dehydrogenase C-Reactive Protein Total Protein Albumin 3.2 L Arterial Blood Glucose 272 H Arterial Blood Ionized Calcium 4.4 L Coronavirus (PCR) 03/17/21 03/17/21 03/18/21 09:10 14:20 05:55 WBC RBC MCV 72 L MCH 23 L RDW 18.5 H Lymph % (Auto) [place] % (Auto) Lymph # (Auto) Seg Neutrophils % D-Dimer ABG pH POC ABG pO2 ABG Hemoglobin ABG Oxyhemoglobin ABG Sodium ABG Glucose VBG pH Carboxyhemoglobin Sodium Chloride 97.3 L Carbon Dioxide BUN Glucose 234 H Lactic Acid Calcium AST 87 H ALT Lactate Dehydrogenase C-Reactive Protein Total Protein Albumin 3.0 L Arterial Blood Glucose Arterial Blood Ionized Calcium Coronavirus (PCR) Positive A 03/18/21 03/19/21 03/19/21 05:55 07:42 08:06 WBC RBC MCV MCH RDW Lymph % (Auto) [place] % (Auto) Lymph # (Auto) Seg Neutrophils % D-Dimer ABG pH POC ABG pO2 ABG Hemoglobin ABG Oxyhemoglobin ABG Sodium ABG Glucose VBG pH Carboxyhemoglobin Sodium 136 L Chloride 97.5 L 94.1 L Carbon Dioxide 33 H BUN 18 H 21 H Glucose 237 H 172 H Lactic Acid Calcium 8.2 L 8.1 L AST 60 H ALT Lactate Dehydrogenase 659 H C-Reactive Protein 2.00 H Total Protein Albumin 3.0 L 2.9 L Arterial Blood Glucose Arterial Blood Ionized Calcium Coronavirus (PCR) 03/19/21 03/20/21 03/21/21 08:06 08:33 14:27 WBC RBC MCV MCH RDW Lymph % (Auto) [place] % (Auto) Lymph # (Auto) Seg Neutrophils % D-Dimer 581.09 H 362.63 H ABG pH POC ABG pO2 ABG Hemoglobin ABG Oxyhemoglobin ABG Sodium ABG Glucose VBG pH Carboxyhemoglobin Sodium Chloride 92.0 L Carbon Dioxide 36 H BUN 20 H Glucose 208 H Lactic Acid Calcium AST ALT Lactate Dehydrogenase C-Reactive Protein Total Protein Albumin 3.4 L Arterial Blood Glucose Arterial Blood Ionized Calcium Coronavirus (PCR) 03/23/21 03/23/21 03/24/21 18:01 18:01 06:25 WBC RBC 5.21 H MCV 74 L 72 L MCH 22 L 22 L RDW 18.4 H 18.7 H Lymph % (Auto) 6.8 L 10.4 L [place] % (Auto) Lymph # (Auto) 0.4 L 0.6 L Seg Neutrophils % 86.7 H 82.1 H D-Dimer ABG pH POC ABG pO2 ABG Hemoglobin ABG Oxyhemoglobin ABG Sodium ABG Glucose VBG pH Carboxyhemoglobin Sodium 132 L Chloride 83.2 L Carbon Dioxide 33 H BUN 27 H Glucose 455 H Lactic Acid Calcium AST ALT Lactate Dehydrogenase 374 H C-Reactive Protein Total Protein Albumin 3.7 L Arterial Blood Glucose Arterial Blood Ionized Calcium Coronavirus (PCR) 03/24/21 06:25 WBC RBC MCV MCH RDW Lymph % (Auto) [place] % (Auto) Lymph # (Auto) Seg Neutrophils % D-Dimer ABG pH POC ABG pO2 ABG Hemoglobin ABG Oxyhemoglobin ABG Sodium ABG Glucose VBG pH Carboxyhemoglobin Sodium 131 L Chloride 83.1 L Carbon Dioxide 39 H BUN 24 H Glucose 384 H Lactic Acid Calcium AST ALT Lactate Dehydrogenase 294 H C-Reactive Protein Total Protein Albumin 3.3 L Arterial Blood Glucose Arterial Blood Ionized Calcium Coronavirus (PCR)
--- NOTE | 2021-03-24 16:34 | Event Note ---
Date: 03/24/21 Paged by RN regarding patient. Patient was adamant about leaving hospital. Explained to patient that she is still requiring high levels of oxygen and that this was not advisable. She is very adamant that her oxygen levels are fine and states that the staff is lying. I reiterated to the patient that the staff is not lying and that we will want her to get better. I also reiterated that we are working aggressively to drop her oxygen requirements so that she can safely be discharged home. Myself and the care team emphasized that the patient needs to be understanding of her underlying disease process. I educated her on her rights as a patient and patient voiced understanding.
[2021-03-25] MEDS: methylPREDNISolone Sod Succinate 125 MG/2 ML INJ IV SCH ×3 (05:42→22:55)
--- NOTE | 2021-03-25 07:27 | Progress Note ---
Assessment and Plan Assessment and plan: 46 YO Female with Obesity Hypoventilation Syndrome presents ED for evaluation. Patient reports "I cannot breathe, my head hurts". Patient states that she has experienced fever, generalized weakness, fatigue, malaise, dry cough, headache, diminished sense of smell, diminished sense of taste over the past 5 days with persistent and worsening symptoms over the same timeframe. Patient transported to [facility] via private vehicle for further care and evaluation of the aforementioned symptoms. The patient was seen and evaluated in the emergency department. All lab and imaging studies reviewed. The patient was found to be febrile with a temperature of 104 F as well as a pulse oximetry of 45% on room air which is consistent with acute hypoxemic respiratory failure. Patient was placed on supplemental oxygen without significant improvement in symptoms and was subsequently placed on high flow supplemental oxygen with mild improvement in symptoms. Chest x-ray revealed bilateral pneumonia. Patient admitted to medical floor and initiated on pneumonia as well as coronavirus protocols. Pulmonary team consulted in ED. Nephrology team consulted in ED. Patient denies chest pain, skin rash, recent ill contacts unilateral leg swelling, calf pain prolonged travel/immobility, individual/family history of DVT/PE/bleeding/blood clotting disorders. No prior admission for review. No medication listed at time of admission for reconciliation. Advanced care planning conducted in ED. Patient is not vaccinated against COVID-19. 03/17: Patient still severely hypoxic she is unvaccinated. ID recommended that she is lies prone as much as she can, I will also adjusted steroids for higher dose for better management. I also added some Lasix. Pulmonary input is noted will await ID input as patient will likely need remdesivir. Will monitor renal function. Continue monitoring inflammatory markers. Condition guarded discussed extensively with the patient critical care time 35 minutes 03/18/21 Patient is seen and examined Labs and medication reviewed Patient complained of less shortness of breath. No coughing. But patient is on high flow 40 L with 100% FiO2. O2 sat 94%. Continue current management. Solu- Medrol 80 mg IV every 8 hours remdesivir. Vitamin C, vitamin D and zinc and Tocilizumab. Wean oxygen slowly as tolerated. Infectious disease and pulmonary follow-up. Follow Covid inflammatory marker. 03/19: Continue supportive care. Continue steroid therapy. Pulmonary and ID input noted. Considering constipation will start the patient on some antibiotics and scheduled stool softeners. We will add some Lasix for better control of fluid management to help with oxygenation. Patient unfortunately still in guarded prognosis considering morbid obesity and COVID-19 in addition with severe hypoxia. 03/20/21: Continue supportive care. Pulmonary and ID input noted. Patient had bowel movement; we will continue scheduled stool softeners. Escalate steroids to high-dose 125 mg every 6hr, begin Actemra and remdesivir, Lasix twice daily per pulmonology recommendations. Remains on high flow nasal cannula at 40 L/min / 90% FiO2. De-escalate as patient tolerates. Patient prognosis still remains guarded given risk factor of morbid obesity and unvaccinated status. 03/21/2021: Continue supportive care. HFNC set to 30 l/min/ 70% FIO2. Continue to wean as patient sat tolerate > 88%. 03/22/2021: Continue to wean as patient tolerates. encourage proning. will continue supportive care. Pulm ordered evening lasix dose. 03/23/2021: Continue to wean as patient tolerates. Encourage proning. Will continue supportive care. HFNC 30 l /min, 55% fio2. s/p addtl lasix dose. 03/25/2021: HFNC dropped to NC, patient tolerated well. Sats >88% ok. Encouraged proning. Will work towards setting home O2 tomorrow if patient tolerates NC through the night. (1) Acute hypoxemic respiratory failure Current Visit: Yes Status: Acute Plan to address problem: Chest x-ray, supplemental oxygen, pulse oximetry, nebulizer therapy, high flow supplemental oxygen at this time, if patient is unable to maintain pulse oximetry will consider noninvasive positive pressure ventilation with BiPAP. Pulmonary team consulted. (2) 2019-nCoV infection Current Visit: Yes Status: Acute Plan to address problem: Coronavirus protocol: Contact precaution, isolation precautions, IV antibiotic therapy, IV steroid therapy, vitamin C therapy, vitamin D therapy, zinc therapy, HFNC oxygen, prophylactic anticoagulation (3) Pneumonia Current Visit: Yes Status: Acute Plan to address problem: Pneumonia protocol: Chest x-ray, CBC, CMP, supplemental oxygen, pulse oximetry, nebulizer therapy, prone positioning while in bed, pulmonary toilet, (4) Obesity hypoventilation syndrome Current Visit: Yes Status: Acute Plan to address problem: Balanced diet, increase physical activity discharge, outpatient pulmonary follow-up for sleep study, outpatient bariatric surgery follow-up. (5) constipation (6) DVT prophylaxis Current Visit: Yes Status: Acute Plan to address problem: SCD to bilateral lower extremities while in bed, prophylactic anticoagulation (7) Advance care planning Current Visit: Yes Status: Acute Plan to address problem: Disease education conducted, care plan discussed, diagnosis discussed, prognosis discussed, patient is full code, patient knowledges understanding and agreement with care plan, +30 minutes. (8) 2019 novel coronavirus vaccination not done Current Visit: Yes Status: Acute Plan to address problem: Pt counseled. History Interval history: no complaints this AM. HFNC changed to [place]. Hospitalist Physical - Physical exam Narrative exam: General appearance: Present: mild distress, obese, on high flow - EENT Eyes: Present: PERRL ENT: hearing intact, clear oral mucosa - Neck Neck: Present: supple, normal ROM - Respiratory Respiratory effort: labored, accessory muscle use, stridor Respiratory: bilateral: diminished, rhonchi - Cardiovascular Heart Sounds: Present: S1 & S2. Absent: rub, click - Extremities Extremities: pulses symmetrical, No edema Peripheral Pulses: within normal limits - Abdominal General gastrointestinal: Present: soft, non-tender, non-distended, normal bowel sounds Female genitourinary: Present: normal - Integumentary Integumentary: Present: clear, warm, dry - Musculoskeletal Musculoskeletal: gait normal, strength equal bilaterally - Psychiatric Psychiatric: appropriate mood/affect, intact judgment & insight - Neurologic Neurologic: CNII-XII intact, moves all extremities - Constitutional Vitals: Temp Pulse Resp BP Pulse Ox 98.0 F 88 20 151/100 98 03/25/21 04:39 03/24/21 16:21 03/25/21 04:39 03/25/21 04:39 03/25/21 03:33 General appearance: Present: mild distress, obese Results - Labs CBC & Chem 7: 03/24/21 06:25 03/24/21 06:25 Labs: Laboratory Last Values WBC 6.1 K/mm3 (4.5-11.0) 03/24/21 06:25 RBC 4.69 M/mm3 (3.65-5.03) 03/24/21 06:25 Hgb 10.5 gm/dl (10.1-14.3) 03/24/21 06:25 Hct 33.9 % (30.3-42.9) 03/24/21 06:25 MCV 72 fl (79-97) L 03/24/21 06:25 MCH 22 pg (28-32) L 03/24/21 06:25 MCHC 31 % (30-34) 03/24/21 06:25 RDW 18.7 % (13.2-15.2) H 03/24/21 06:25 Plt Count 361 K/mm3 (140-440) 03/24/21 06:25 Lymph % (Auto) 10.4 % (13.4-35.0) L 03/24/21 06:25 Castro % (Auto) 7.2 % (0.0-7.3) 03/24/21 06:25 Eos % (Auto) 0.0 % (0.0-4.3) 03/24/21 06:25 Baso % (Auto) 0.3 % (0.0-1.8) 03/24/21 06:25 Lymph # (Auto) 0.6 K/mm3 (1.2-5.4) L 03/24/21 06:25 Castro # (Auto) 0.4 K/mm3 (0.0-0.8) 03/24/21 06:25 Eos # (Auto) 0.0 K/mm3 (0.0-0.4) 03/24/21 06:25 Baso # (Auto) 0.0 K/mm3 (0.0-0.1) 03/24/21 06:25 Seg Neutrophils % 82.1 % (40.0-70.0) H 03/24/21 06:25 Seg Neutrophils # 5.0 K/mm3 (1.8-7.7) 03/24/21 06:25 PT 13.0 Sec. (12.2-14.9) 03/16/21 16:57 INR 0.93 (0.87-1.13) 03/16/21 16:57 D-Dimer 206.51 ng/mlDDU (0-234) 03/24/21 06:25 ABG pH 7.457 (7.320-7.450) H 03/17/21 08:39 POC ABG pCO2 42.4 mmHg (32.0-48.0) 03/17/21 08:39 POC ABG pO2 57.4 mmHg (83-108) L 03/17/21 08:39 POC ABG HCO3 29.3 03/17/21 08:39 ABG O2 Saturation 89.3 (0-100) 03/17/21 08:39 POC ABG Base Excess 4.9 03/17/21 08:39 ABG Hemoglobin 11.6 (12.0-17.5) L 03/17/21 08:39 ABG Oxyhemoglobin 88.7 (94-98) L 03/17/21 08:39 ABG Methemoglobin 0.3 (0.0-1.5) 03/17/21 08:39 ABG Sodium 132.6 mmol/L (136.0-145.0) L 03/17/21 08:39 ABG Potassium 4.1 mmol/L (3.40-4.50) 03/17/21 08:39 ABG Chloride 98.0 mmol/L (98-107) 03/17/21 08:39 ABG Glucose 272 mg/dL (65-95) H 03/17/21 08:39 VBG pH 7.430 (7.320-7.420) H 03/16/21 16:57 Carboxyhemoglobin 0.4 (0.5-1.5) L 03/17/21 08:39 FiO2 % 100.0 03/17/21 08:39 Sodium 131 mmol/L (137-145) L 03/24/21 06:25 Potassium 3.8 mmol/L (3.6-5.0) 03/24/21 06:25 Chloride 83.1 mmol/L (98-107) L 03/24/21 06:25 Carbon Dioxide 39 mmol/L (22-30) H 03/24/21 06:25 Anion Gap 13 mmol/L 03/24/21 06:25 BUN 24 mg/dL (7-17) H 03/24/21 06:25 Creatinine 0.8 mg/dL (0.6-1.2) 03/24/21 06:25 Estimated GFR > 60 ml/min 03/24/21 06:25 BUN/Creatinine Ratio 30 % 03/24/21 06:25 Glucose 384 mg/dL (65-100) H 03/24/21 06:25 Lactic Acid 0.90 mmol/L (0.7-2.0) 03/16/21 19:48 Calcium 8.8 mg/dL (8.4-10.2) 03/24/21 06:25 Ferritin 38.5 ng/mL (10.0-200.0) 03/24/21 06:25 Total Bilirubin 0.70 mg/dL (0.1-1.2) 03/24/21 06:25 AST 13 units/L (5-40) 03/24/21 06:25 ALT 27 units/L (7-56) 03/24/21 06:25 Alkaline Phosphatase 53 units/L (35-129) 03/24/21 06:25 Lactate Dehydrogenase 294 units/L (91-180) H 03/24/21 06:25 C-Reactive Protein 0.20 mg/dL (0.00-1.30) 03/24/21 06:25 NT-Pro-B Natriuret Pep 113.8 pg/mL (0-450) 03/16/21 17:12 Total Protein 6.3 g/dL (6.3-8.2) 03/24/21 06:25 Albumin 3.3 g/dL (3.9-5) L 03/24/21 06:25 Albumin/Globulin Ratio 1.1 % 03/24/21 06:25 Procalcitonin < 0.05 ng/mL (<0.15) 03/16/21 17:12 HCG, Qual Negative (Negative) 03/16/21 16:57 Arterial Blood Glucose 272 mg/dL (65-95) H 03/17/21 08:39 Arterial Blood Ionized Calcium 4.4 mg/dL (4.6-5.3) L 03/17/21 08:39 Urine Color Yellow (Yellow) 03/16/21 Unknown Urine Turbidity Clear (Clear) 03/16/21 Unknown Urine pH 6.0 (5.0-7.0) 03/16/21 Unknown Ur Specific [place] 1.014 (1.003-1.030) 03/16/21 Unknown Urine Protein 100 mg/dl mg/dL (Negative) 03/16/21 Unknown Urine Glucose (UA) >=500 mg/dL (Negative) 03/16/21 Unknown Urine Ketones Neg mg/dL (Negative) 03/16/21 Unknown Urine Blood Neg (Negative) 03/16/21 Unknown Urine Nitrite Neg (Negative) 03/16/21 Unknown Urine Bilirubin Neg (Negative) 03/16/21 Unknown Urine Urobilinogen < 2.0 mg/dL (<2.0) 03/16/21 Unknown Ur Leukocyte Esterase Neg (Negative) 03/16/21 Unknown Urine WBC (Auto) 2.0 /HPF (0.0-6.0) 03/16/21 Unknown Urine RBC (Auto) 1.0 /HPF (0.0-6.0) 03/16/21 Unknown U Epithel Cells (Auto) 1.0 /HPF (0-13.0) 03/16/21 Unknown Urine Bacteria (Auto) 1+ /HPF (Negative) 03/16/21 Unknown Urine Mucus Few /HPF 03/16/21 Unknown Coronavirus (PCR) Positive (Negative) A 03/17/21 09:10 [place]/IV: Voiding Method Bedside Commode Active Medications - Current Medications Current Medications: Generic Name Dose Route Start Last Admin Trade Name Freq PRN Reason Stop Dose Admin Acetaminophen 650 mg 03/16/21 18:46 03/17/21 22:27 Acetaminophen 325 Mg Tab PO 650 mg Q4H PRN Administration Pain MILD(1-3)/Fever >100.5/CUVEA Albuterol 2.5 mg 03/16/21 18:46 Albuterol 2.5 Mg/3 Ml Nebu IH Q4HRT PRN Shortness Of Breath Alprazolam 0.25 mg 03/17/21 21:47 03/17/21 22:27 Alprazolam 0.25 Mg Tab PO 0.25 mg Q8H PRN Administration Anxiety Ascorbic Acid 500 mg 03/16/21 22:00 03/24/21 22:07 Ascorbic Acid 500 Mg Tab PO 500 mg BID WALLY Administration Bisacodyl 10 mg 03/19/21 13:12 Bisacodyl 5 Mg Tab PO QDAY PRN Constipation Cholecalciferol 1,000 unit 03/19/21 10:00 03/24/21 10:47 Cholecalciferol (Vit D3) 1000 Unit (25 Mcg) Tab PO 1,000 unit QDAY WALLY Administration Enoxaparin Sodium 130 mg 03/17/21 12:00 03/24/21 22:06 Enoxaparin 150 Mg/1 Ml Inj SUB-Q 130 mg Q12HR WALLY Administration Furosemide 40 mg 03/17/21 12:00 03/24/21 10:47 Furosemide 40 Mg/4 Ml Inj IV 40 mg QDAY WALLY Administration Hydromorphone HCl 0.5 mg 03/16/21 18:46 Hydromorphone 1 Mg/1 Ml Inj IV Q24H PRN Pain , Severe (7-10) Magnesium Hydroxide 30 ml 03/18/21 16:19 03/19/21 06:17 Magnesium Hydroxide (Mom) Oral Liqd Udc PO 30 ml QDAY PRN Administration Constipation Methylprednisolone Sodium Succinate 125 mg 03/19/21 22:00 03/25/21 05:42 Methylprednisolone Sod Succinate 125 Mg/2 Ml Inj IV 125 mg Q8HR WALLY Administration Ondansetron HCl 4 mg 03/16/21 18:46 Ondansetron 4 Mg/2 Ml Inj IV Q8H PRN Nausea And Vomiting Oxycodone/Acetaminophen 1 tab 03/16/21 18:46 Oxycodone /Acetaminophen 5-325mg Tab PO Q12H PRN Pain, Moderate (4-6) Senna 8.6 mg 03/23/21 15:42 Sennosides 8.6 Mg Tab PO Q12H PRN Laxative Effect Sodium Chloride 10 ml 03/16/21 22:00 03/24/21 22:07 Sodium Chloride 0.9% 10 Ml Flush Syringe IV 10 ml BID WALLY Administration Sodium Chloride 10 ml 03/16/21 18:46 03/18/21 06:24 Sodium Chloride 0.9% 10 Ml Flush Syringe IV 10 ml PRN PRN Administration LINE FLUSH Zinc Sulfate 220 mg 03/16/21 22:00 03/24/21 22:07 Zinc Sulfate 220 Mg Cap PO 220 mg BID WALLY Administration Nutrition/Malnutrition Assess - Dietary Evaluation Nutrition/Malnutrition Findings: Nutrition Notes Start: 03/22/21 10:57 Freq: Status: Active Protocol: Document 03/22/21 12:58 EB (Rec: 03/22/21 13:08 EB [id number]) Nutrition Notes Need for Assessment generated from: LOS Initial or Follow up Brief Note Current Diagnosis Respiratory Failure Other Pertinent Diagnosis Covid +, Hypoventilation Syndrome Current Diet regular Labs/Tests BUN 20 Glu 208 Pertinent Medications Vit. C Vit. D Dulcolax Height 5 ft 6.14 in Weight 125.191 kg [place] Body Weight (kg) 59.40 BMI 44.3 Intake Prior to Admission Good Weight Status Morbidly Obese Subjective/Other Information RD screen for LOS. Pt says her appetite and intake was good [employer]. Pt says she has consumed 100% of each meal since her admission. Pt states her breakfast tray appeared to not have a complete serving of food on the plate, resulting in her being hungry at time of contact (10:30 am). Pt skin intact and regular BMs. Percent of energy/protein needs met: 100%/100% Burn Absent Trauma Absent GI Symptoms None Food Allergy No Current % PO Good (75-100%) Minimum of two criteria No #1 Nutrition Diagnosis No nutrition diagnosis at this time Is patient on ventilator? No Is Patient Ambulatory and/or Out of Bed Yes REE-([place]-ambulatory/OOB) [ 2497.183 [id number]] Kcal/Kg value to use for calculation 14 Approximate Energy Requirements Using 1753 kcal/Kg Calculation Used for Recommendations Kcal/kg Additional Notes Protein Needs: 70-88 g/day Fluid Needs: 1 mL/kcal Nutrition Intervention Goal #1 Continue to meet claudy and protein needs via PO intake Anticipated Discharge Needs: Unable to determine at this time Revisit per MD consult or patient Sign Off request:
[2021-03-25] MEDS: FUROSEMIDE 40 MG/4 ML INJ IV SCH (10:54)
[2021-03-25] MEDS: ENOXAPARIN 150 MG/1 ML INJ SUB-Q SCH ×2 (10:54→22:55)
[2021-03-25] MEDS: CHOLECALCIFEROL (VIT D3) 1000 UNIT (25 mcg) TAB PO SCH (10:55)
[2021-03-25] MEDS: ASCORBIC ACID 500 MG TAB PO SCH ×2 (10:55→22:55)
[2021-03-25] MEDS: ZINC SULFATE 220 MG CAP PO SCH ×2 (10:55→22:56)
[2021-03-26] MEDS: methylPREDNISolone Sod Succinate 125 MG/2 ML INJ IV SCH ×3 (05:59→22:35)
[2021-03-26] MEDS: ENOXAPARIN 150 MG/1 ML INJ SUB-Q SCH ×2 (09:51→22:34)
[2021-03-26] MEDS: FUROSEMIDE 40 MG/4 ML INJ IV SCH (09:51)
[2021-03-26] MEDS: CHOLECALCIFEROL (VIT D3) 1000 UNIT (25 mcg) TAB PO SCH (09:52)
[2021-03-26] MEDS: ZINC SULFATE 220 MG CAP PO SCH ×2 (09:52→22:27)
[2021-03-26] MEDS: ASCORBIC ACID 500 MG TAB PO SCH ×2 (09:52→22:27)
[2021-03-26] MEDS ORDERED: ALPRAZolam 1 MG TAB PO STA (10:38)
--- NOTE | 2021-03-26 12:03 | Discharge Summary ---
Providers - Providers Date of Admission: 03/16/21 18:46 Date of discharge: 03/26/21 Attending physician: AMARILIS SKELTON MD 03/16/21 18:49 Consult to Physician [CONS] Routine Comment: Consulting Provider: CARL CARRILLO Physician Instructions: Reason For Exam: pui Consult to Physician [CONS] Routine Comment: Consulting Provider: LALA JIMÉNEZ Physician Instructions: Reason For Exam: PUI 03/26/21 07:16 Consult to Case Management [CONS] Routine Services Needed at Discharge: Home O2 Primary care physician: PAINT [employer]LL[employer]OVER[employer]ER Hospitalization Reason for admission: Shortness of breath Condition: Fair Hospital course: 46 YO Female with Obesity Hypoventilation Syndrome presents ED for evaluation. Patient reports "I cannot breathe, my head hurts". Patient states that she has experienced fever, generalized weakness, fatigue, malaise, dry cough, headache, diminished sense of smell, diminished sense of taste over the past 5 days with persistent and worsening symptoms over the same timeframe. Patient transported to [facility] via private vehicle for further care and evaluation of the aforementioned symptoms. The patient was seen and evaluated in the emergency department. All lab and imaging studies reviewed. The patient was found to be febrile with a temperature of 104 F as well as a pulse oximetry of 45% on room air which is consistent with acute hypoxemic respiratory failure. Patient was placed on supplemental oxygen without significant improvement in symptoms and was subsequently placed on high flow supplemental oxygen with mild improvement in symptoms. Chest x-ray revealed bilateral pneumonia. Patient admitted to medical floor and initiated on pneumonia as well as coronavirus protocols. Pulmonary team consulted in ED. Nephrology team consulted in ED. Patient denies chest pain, skin rash, recent ill contacts unilateral leg swelling, calf pain prolonged travel/immobility, individual/family history of DVT/PE/bleeding/blood clotting disorders. No prior admission for review. No medication listed at time of admission for reconciliation. Advanced care planning conducted in ED. Patient is not vaccinated against COVID-19. 03/17: Patient still severely hypoxic she is unvaccinated. ID recommended that she is lies prone as much as she can, I will also adjusted steroids for higher dose for better management. I also added some Lasix. Pulmonary input is noted will await ID input as patient will likely need remdesivir. Will monitor renal function. Continue monitoring inflammatory markers. Condition guarded discussed extensively with the patient critical care time 35 minutes 03/18/21 Patient is seen and examined Labs and medication reviewed Patient complained of less shortness of breath. No coughing. But patient is on high flow 40 L with 100% FiO2. O2 sat 94%. Continue current management. Solu-Medrol 80 mg IV every 8 hours remdesivir. Vitamin C, vitamin D and zinc and Tocilizumab. Wean oxygen slowly as tolerated. Infectious disease and pulmonary follow-up. Follow Covid inflammatory marker. 03/19: Continue supportive care. Continue steroid therapy. Pulmonary and ID input noted. Considering constipation will start the patient on some antibiotics and scheduled stool softeners. We will add some Lasix for better control of fluid management to help with oxygenation. Patient unfortunately still in guarded prognosis considering morbid obesity and COVID-19 in addition with severe hypoxia. 03/20/21: Continue supportive care. Pulmonary and ID input noted. Patient had bowel movement; we will continue scheduled stool softeners. Escalate steroids to high-dose 125 mg every 6hr, begin Actemra and remdesivir, Lasix twice daily per pulmonology recommendations. Remains on high flow nasal cannula at 40 L/min / 90% FiO2. De-escalate as patient tolerates. Patient prognosis still remains guarded given risk factor of morbid obesity and unvaccinated status. 03/21/2021: Continue supportive care. HFNC set to 30 l/min/ 70% FIO2. Continue to wean as patient sat tolerate > 88%. 03/22/2021: Continue to wean as patient tolerates. encourage proning. will continue supportive care. Pulm ordered evening lasix dose. 03/23/2021: Continue to wean as patient tolerates. Encourage proning. Will continue supportive care. HFNC 30 l /min, 55% fio2. s/p addtl lasix dose. 03/25/2021: HFNC dropped to NC, patient tolerated well. Sats >88% ok. Encouraged proning. Will work towards setting home O2 tomorrow if patient tolerates NC through the night. 03/26/2021: Nasal cannula at 4 L/min. Patient resting comfortably no acute complaints. Home oxygen set up by major case detective. Plan for discharge today. Patient advised to avoid operating any motor vehicle and to remain at home while recovering from Covid. Decadron steroid taper transmitted to her pharmacy. Anticipate discharge this afternoon. She was advised to follow-up with her primary care doctor as soon as possible. (1) Acute hypoxemic respiratory failure Current Visit: Yes Status: Acute Plan to address problem: Chest x-ray, supplemental oxygen, pulse oximetry, nebulizer therapy, high flow supplemental oxygen at this time, if patient is unable to maintain pulse oximetry will consider noninvasive positive pressure ventilation with BiPAP. Pulmonary team consulted. (2) 2019-nCoV infection Current Visit: Yes Status: Acute Plan to address problem: Coronavirus protocol: Contact precaution, isolation precautions, IV antibiotic therapy, IV steroid therapy, vitamin C therapy, vitamin D therapy, zinc therapy, HFNC oxygen, prophylactic anticoagulation (3) Pneumonia Current Visit: Yes Status: Acute Plan to address problem: Pneumonia protocol: Chest x-ray, CBC, CMP, supplemental oxygen, pulse oximetry, nebulizer therapy, prone positioning while in bed, pulmonary toilet, (4) Obesity hypoventilation syndrome Current Visit: Yes Status: Acute Plan to address problem: Balanced diet, increase physical activity discharge, outpatient pulmonary follow-up for sleep study, outpatient bariatric surgery follow-up. (5) constipation (6) DVT prophylaxis Current Visit: Yes Status: Acute Plan to address problem: SCD to bilateral lower extremities while in bed, prophylactic anticoagulation (7) Advance care planning Current Visit: Yes Status: Acute Plan to address problem: Disease education conducted, care plan discussed, diagnosis discussed, prognosis discussed, patient is full code, patient knowledges understanding and agreement with care plan, +30 minutes. (8) 2019 novel coronavirus vaccination not done Current Visit: Yes Status: Acute Plan to address problem: Pt counseled. Disposition: 01 HOME / SELF CARE / HOMELESS Final Discharge Diagnosis (Prints w/discharge instructions): Acute hypoxic respiratory failure due to COVID-19 pneumonia Time spent for discharge: 35 - Discharge Diagnoses (1) Acute hypoxemic respiratory failure Status: Acute (2) Morbid obesity Status: Acute (3) 2019 novel coronavirus vaccination not done Status: Acute (4) Obesity hypoventilation syndrome Status: Acute (5) Pneumonia Status: Acute (6) Suspected 2019-nCoV infection Status: Acute Core Measure Documentation - Palliative Care Palliative Care/ Comfort Measures: Not Applicable - Core Measures Any of the following diagnoses?: none Exam - Physical Exam Narrative exam: General appearance: Present: mild distress, obese, on high flow - EENT Eyes: Present: PERRL ENT: hearing intact, clear oral mucosa - Neck Neck: Present: supple, normal ROM - Respiratory Respiratory effort: labored, accessory muscle use, stridor Respiratory: bilateral: diminished, rhonchi - Cardiovascular Heart Sounds: Present: S1 & S2. Absent: rub, click - Extremities Extremities: pulses symmetrical, No edema Peripheral Pulses: within normal limits - Abdominal General gastrointestinal: Present: soft, non-tender, non-distended, normal bowel sounds Female genitourinary: Present: normal - Integumentary Integumentary: Present: clear, warm, dry - Musculoskeletal Musculoskeletal: gait normal, strength equal bilaterally - Psychiatric Psychiatric: appropriate mood/affect, intact judgment & insight - Neurologic Neurologic: CNII-XII intact, moves all extremities - Constitutional Vitals: Temp Pulse Resp BP Pulse Ox 97.9 F 93 H 16 128/81 97 03/26/21 04:46 03/25/21 17:53 03/26/21 04:46 03/26/21 04:46 03/26/21 08:33 Plan Activity: advance as tolerated Weight Bearing Status: Weight Bear as Tolerated Diet: low fat, low cholesterol, low salt, diabetic Durable Medical Equipment Needed Upon Discharge: Oxygen Follow up with: PRIMARY CARE, [Primary Care Provider] - 7 Days Prescriptions: Dexamethasone [Decadron] 6 mg PO CONT 10 Days #48 tablet
--- NOTE | 2021-03-26 12:05 | Progress Note ---
Assessment and Plan 46 y/o female with acute respiratory failure secondary to COVID pneumonia. 03/26/21: No objection to discharge. Will need prolonged taper. Suggest the following: Pred 60 daily for 5 days, 40 daily for 5 days then 20 daily for 5 days then stop. 03/24/21: Hold on lasix today. Continue high dose steroids but may consider weaning as early as friday. Prone if possible. Prognosis is still guarded. 03/23/21: Despite evening dose of lasix, still positive, but oxygen requirement improving. Will give again today. May need to check chemistry to evaluate renal function and k. Prone if able. 03/22/21: Continue to wean for sats >88%. WIll order an evening dose of lasix today. Prone if possible. Still guarded prognosis despite weaning success. 03/21/21: Wean FiO2 for sats >88%. Per I/O negative on yesterday about 500cc's. Would shoot for goal of 1000cc's off. Guarded prognosis. Continue steroids. 03/20/21: Wean FiO2 for sats >88%. Prone if able. May need to consider BID lasix to achieve net negative fluid balance. Remdesivir. Guarded prognosis. Continue High dose steroids for now. 1. Increased steroids to 125q8 2. Prone if able 3. Remdesivir and Actemra 4. Monitor fluid balance and watch renal function 5. Guarded Prognosis. Subjective Date of service: 03/26/21 Principal diagnosis: COVID19 Interval history: Now down to 4 liters. Does qualify for home oxygen with exertion. Resting sats ok. Objective Vital Signs - 12hr 03/26/21 03/26/21 04:46 08:33 Temperature 97.9 F Respiratory 16 Rate Blood Pressure 128/81 O2 Sat by Pulse 97 Oximetry Constitutional: other (mild distress) Eyes: non-icteric ENT: oropharynx moist Neck: supple Effort: normal Ascultation: Bilateral: diminished breath sounds Cardiovascular: regular rate and rhythm Gastrointestinal: normoactive bowel sounds, soft, non-tender, non-distended, other (obese) Integumentary: normal Extremities: no cyanosis Neurologic: normal mental status, non-focal exam CBC and BMP: 03/24/21 06:25 03/24/21 06:25 ABG, PT/INR, D-dimer: ABG ABG pH 7.457 (7.320-7.450) H 03/17/21 08:39 POC ABG pCO2 42.4 mmHg (32.0-48.0) 03/17/21 08:39 POC ABG pO2 57.4 mmHg (83-108) L 03/17/21 08:39 POC ABG HCO3 29.3 03/17/21 08:39 ABG O2 Saturation 89.3 (0-100) 03/17/21 08:39 PT/INR, D-dimer PT 13.0 Sec. (12.2-14.9) 03/16/21 16:57 INR 0.93 (0.87-1.13) 03/16/21 16:57 D-Dimer 206.51 ng/mlDDU (0-234) 03/24/21 06:25 Abnormal lab findings: Abnormal Labs 03/16/21 03/16/21 03/16/21 16:57 16:57 16:57 WBC RBC 5.04 H MCV 72 L MCH 23 L RDW 19.0 H Lymph % (Auto) Charles % (Auto) 8.5 H Lymph # (Auto) 0.8 L Seg Neutrophils % 74.6 H D-Dimer 977.31 H ABG pH POC ABG pO2 ABG Hemoglobin ABG Oxyhemoglobin ABG Sodium ABG Glucose VBG pH Carboxyhemoglobin Sodium 133 L Chloride 92.0 L Carbon Dioxide BUN Glucose 131 H Lactic Acid Calcium AST 145 H ALT 57 H Lactate Dehydrogenase C-Reactive Protein Total Protein 8.7 H Albumin 3.5 L Arterial Blood Glucose Arterial Blood Ionized Calcium Coronavirus (PCR) 03/16/21 03/16/21 03/16/21 16:57 16:57 17:12 WBC RBC MCV MCH RDW Lymph % (Auto) Charles % (Auto) Lymph # (Auto) Seg Neutrophils % D-Dimer ABG pH POC ABG pO2 ABG Hemoglobin ABG Oxyhemoglobin ABG Sodium ABG Glucose VBG pH 7.430 H Carboxyhemoglobin Sodium Chloride Carbon Dioxide BUN Glucose Lactic Acid 2.40 H* Calcium AST ALT Lactate Dehydrogenase 944 H C-Reactive Protein 10.60 H Total Protein Albumin Arterial Blood Glucose Arterial Blood Ionized Calcium Coronavirus (PCR) 03/17/21 03/17/21 03/17/21 04:42 04:42 08:39 WBC 4.3 L RBC MCV 72 L MCH 23 L RDW 18.6 H Lymph % (Auto) Charles % (Auto) Lymph # (Auto) 0.6 L Seg Neutrophils % 80.6 H D-Dimer ABG pH 7.457 H POC ABG pO2 57.4 L ABG Hemoglobin 11.6 L ABG Oxyhemoglobin 88.7 L ABG Sodium 132.6 L ABG Glucose 272 H VBG pH Carboxyhemoglobin 0.4 L Sodium Chloride 97.6 L Carbon Dioxide BUN Glucose 269 H Lactic Acid Calcium 8.3 L AST 106 H ALT Lactate Dehydrogenase C-Reactive Protein Total Protein Albumin 3.2 L Arterial Blood Glucose 272 H Arterial Blood Ionized Calcium 4.4 L Coronavirus (PCR) 03/17/21 03/17/21 03/18/21 09:10 14:20 05:55 WBC RBC MCV 72 L MCH 23 L RDW 18.5 H Lymph % (Auto) Charles % (Auto) Lymph # (Auto) Seg Neutrophils % D-Dimer ABG pH POC ABG pO2 ABG Hemoglobin ABG Oxyhemoglobin ABG Sodium ABG Glucose VBG pH Carboxyhemoglobin Sodium Chloride 97.3 L Carbon Dioxide BUN Glucose 234 H Lactic Acid Calcium AST 87 H ALT Lactate Dehydrogenase C-Reactive Protein Total Protein Albumin 3.0 L Arterial Blood Glucose Arterial Blood Ionized Calcium Coronavirus (PCR) Positive A 03/18/21 03/19/21 03/19/21 05:55 07:42 08:06 WBC RBC MCV MCH RDW Lymph % (Auto) Charles % (Auto) Lymph # (Auto) Seg Neutrophils % D-Dimer ABG pH POC ABG pO2 ABG Hemoglobin ABG Oxyhemoglobin ABG Sodium ABG Glucose VBG pH Carboxyhemoglobin Sodium 136 L Chloride 97.5 L 94.1 L Carbon Dioxide 33 H BUN 18 H 21 H Glucose 237 H 172 H Lactic Acid Calcium 8.2 L 8.1 L AST 60 H ALT Lactate Dehydrogenase 659 H C-Reactive Protein 2.00 H Total Protein Albumin 3.0 L 2.9 L Arterial Blood Glucose Arterial Blood Ionized Calcium Coronavirus (PCR) 03/19/21 03/20/21 03/21/21 08:06 08:33 14:27 WBC RBC MCV MCH RDW Lymph % (Auto) Charles % (Auto) Lymph # (Auto) Seg Neutrophils % D-Dimer 581.09 H 362.63 H ABG pH POC ABG pO2 ABG Hemoglobin ABG Oxyhemoglobin ABG Sodium ABG Glucose VBG pH Carboxyhemoglobin Sodium Chloride 92.0 L Carbon Dioxide 36 H BUN 20 H Glucose 208 H Lactic Acid Calcium AST ALT Lactate Dehydrogenase C-Reactive Protein Total Protein Albumin 3.4 L Arterial Blood Glucose Arterial Blood Ionized Calcium Coronavirus (PCR) 03/23/21 03/23/21 03/24/21 18:01 18:01 06:25 WBC RBC 5.21 H MCV 74 L 72 L MCH 22 L 22 L RDW 18.4 H 18.7 H Lymph % (Auto) 6.8 L 10.4 L Charles % (Auto) Lymph # (Auto) 0.4 L 0.6 L Seg Neutrophils % 86.7 H 82.1 H D-Dimer ABG pH POC ABG pO2 ABG Hemoglobin ABG Oxyhemoglobin ABG Sodium ABG Glucose VBG pH Carboxyhemoglobin Sodium 132 L Chloride 83.2 L Carbon Dioxide 33 H BUN 27 H Glucose 455 H Lactic Acid Calcium AST ALT Lactate Dehydrogenase 374 H C-Reactive Protein Total Protein Albumin 3.7 L Arterial Blood Glucose Arterial Blood Ionized Calcium Coronavirus (PCR) 03/24/21 06:25 WBC RBC MCV MCH RDW Lymph % (Auto) Charles % (Auto) Lymph # (Auto) Seg Neutrophils % D-Dimer ABG pH POC ABG pO2 ABG Hemoglobin ABG Oxyhemoglobin ABG Sodium ABG Glucose VBG pH Carboxyhemoglobin Sodium 131 L Chloride 83.1 L Carbon Dioxide 39 H BUN 24 H Glucose 384 H Lactic Acid Calcium AST ALT Lactate Dehydrogenase 294 H C-Reactive Protein Total Protein Albumin 3.3 L Arterial Blood Glucose Arterial Blood Ionized Calcium Coronavirus (PCR)
[2021-03-27 00:30] VITALS: BP 143/98
== END 2021-03-27 04:10 | disposition home or self-care (01) | DRG 177 ==
LOC: ED 15:55 → 3A 18:46
PROVIDERS: ADMIT Internal Medicine; ATTEND Internal Medicine
PROC: 5A0955A Assistance with Respiratory Ventilation, Greater than 96 Consecutive Hours, High Flow/Velocity Cannula (ICD-10-PCS; 2021-03-16)
PROC: 4A033R1 Measurement of Arterial Saturation, Peripheral, Percutaneous Approach (ICD-10-PCS; principal; 2021-03-17)
PROC: XW033E5 Introduction of Remdesivir Anti-infective into Peripheral Vein, Percutaneous Approach, New Technology Group 5 (ICD-10-PCS; 2021-03-17)
PROC: XW033H5 Introduction of Tocilizumab into Peripheral Vein, Percutaneous Approach, New Technology Group 5 (ICD-10-PCS; 2021-03-17)
DX: U07.1 COVID-19 (principal); J96.01 Acute respiratory failure with hypoxia; J12.82 Pneumonia due to coronavirus disease 2019; E66.2 Morbid (severe) obesity with alveolar hypoventilation; Z68.41 Body mass index [BMI] 40.0-44.9, adult; E87.5 Hyperkalemia; Z83.3 Family history of diabetes mellitus; Z82.49 Family history of ischemic heart disease and other diseases of the circulatory system; K59.00 Constipation, unspecified
CPT/HCPCS: 36415; 36600; 71045; 74018; 80048; 80053; 81001; 82140; 82728; 82805; 83615; 83880; 84145; 84703; 85025; 85027; 85379; 85610; 86140; 87040; 87086; 93005; 94760; G0378; J0456; J0696; J1100; J1644; J1650; J1940; J2920; J2930; J3262; J7030; J7050; U0003